=== PATIENT | female | born 1940 | race Caucasian/White ===

== ENCOUNTER → 2017-06-15 | Outpatient (CLI) | payer OTHER ==
--- NOTE | 2017-06-15 15:30 | DIAGNOSTIC IMAGING REPORT ---
CAROTID DOPPLER NECK ART CLINICAL HISTORY: 77 years-old Female presenting with FATIGUE. TECHNIQUE: Real-time grayscale and color and spectral Doppler ultrasound imaging of the bilateral carotid arteries was performed. NASCET criteria was used in evaluating this study. COMPARISON: None. FINDINGS: Right: Common carotid: Patent. Peak systolic velocity 72 cm/s. Internal carotid artery: Atherosclerosis of the proximal ICA. Peak systolic velocity 48 cm/s. Systolic ratio: 0.7. External carotid artery: Patent. Peak systolic velocity 59 cm/s. Left: Common carotid: Patent. Peak systolic velocity 81 cm/s. Internal carotid artery: Atherosclerosis of the proximal ICA. Peak systolic velocity 61 cm/s. Systolic ratio: 0.8. External carotid artery: Patent. Peak systolic velocity 55 cm/s. Bilateral antegrade flow within the vertebral arteries. Reference ranges: Stenosis measurements are compared to reference velocity parameters. ICA peak systolic velocity (PSV) < 125 cm/s normal or indicating < 50% stenosis; ICA PSV 125-230 cm/s equivalent to 50-69% stenosis; ICA PSV > 230 cm/s equivalent to greater than or equal to 70% stenosis. ICA PSV to common carotid artery PSV ratio < 2 normal or < 50% stenosis; 2-4 equates to 50-69% stenosis, > 4 equates to greater than or equal to 70% stenosis. Normal ICA end-diastolic velocity less than 40. Blood pressure Brachial: Right: 181/90 mmHg, Left: 183/93 mmHg. IMPRESSION: 1. Atherosclerosis without hemodynamically significant stenosis seen within the carotid arteries. 2. Systemic hypertension. Electronically signed by: Adelso Guerrier M.D. 06/15/2017 3:29 PM Dictated Date/Time: 06/15/2017 3:28 PM
[2017-06-18 16:28] LABS: ANA SCREEN TC 249X NEGATIVE (NEGATIVE)
== END | disposition home or self-care (01) ==
LOC: C.ULTRBC 14:00
PROVIDERS: ATTEND Internal Medicine
DX: R53.83 Other fatigue (principal)

== ENCOUNTER 2023-06-09 15:56 | Inpatient (IN) ==
--- OUTSIDE RECORDS SUMMARY | 2023-06-09 16:00 | External Medical Summary | Continuity of Care Document ---
Author Name Unknown Organization [address] Address [address] [place], [place] [id number] Care Team Providers Care Administration Vice President Name Role Phone Sarita Francis Primary Care Physician [phone] [facility] [id number] Date(s): 04/03/23 - 04/03/23 [facility] [address], [address] [place] [address] [phone] Encounter Diagnosis Acute COVID-19(Discharge Diagnosis) - 04/03/23 Cough(Discharge Diagnosis) - 04/03/23 Discharge Disposition: Home or Self Care Attending Physician: MD Francis Amy L Allergies, Adverse Reactions, Alerts No Known Allergies Assessment and Plan Extracted from: Title:TeleHealth Visit Note Author:MD Francis Amy L Date:04/03/23 1.Acute COVID-19 Advised that since herCOVID sx have improved & that she has been symptomatic for over 5 days, would not recommend Paxlovid at this time.Daughter wasadvised OK to continuepushing fluids & using OTC cold meds.Reviewed "red flag" sx for which to call us back & or go to ER. 2.Cough Informed daughterof possibleviral etiology. However, since she appears to have had a secondary illness, & is so frail, will tx preemptively withantibiotic. Initially, discussed Levaquin, as daughter was fearful that she could get yeast infection, then progressing into UTI. However, this has a major contra- indication with Sotalol. So, Cefuroxime 500mg BID for 7 days was sent in, instead. Return prn Immunizations Given and Recorded Vaccine Date Status Refusal Reason pneumococcal 23-valent vaccine 09/19/22 Given SARS-CoV-2 (COVID-19) mRNA-1273 vaccine 09/21/21 R ecorded SARS-CoV-2 (COVID-19) mRNA-1273 vaccine 04/20/21 R ecorded SARS-CoV-2 (COVID-19) mRNA-1273 vaccine 06/03/20 R ecorded influenza virus vaccine, inactivated 02/24/21 Give n Medications atorvastatin 40 mg oral tablet Start: 10/16/22 19:36:00 EDT, 1 tab, PO, qhs, Disp# 90 tab, Refills: 3, Pharmacy: [facility] Start Date: 10/16/22 Status: Ordered azelastine 137 mcg/inh (0.1%) nasal spray Start: 09/24/20 13:19:00 EDT, 1 spray, each nostril, bid, Disp# 3 each, Refills: 1, PRN: as needed for allergy symptoms, Pharmacy: [facility] Start Date: 09/24/20 Status: Ordered BD Test Strips 100 ct Start: 08/05/21 19:05:00 EDT, See Instructions, Disp# 100 each, Refills: 6, test daily, Dx E11.9, Pharmacy: [id number] Start Date: 08/05/21 Status: Ordered carbidopa-levodopa 25 mg-100 mg oral tablet Start: 10/08/19 14:45:00 EDT, 1 tab, PO, bid, extended release Start Date: 10/08/19 Status: Ordered cefuroxime 500 mg oral tablet Start: 04/03/23 12:19:00 EST, 1 tab, PO, bid, Disp# 14, Refills: 0, Pharmacy: [id number] Start Date: 04/03/23 Stop Date: 04/10/23 Status: Ordered docusate sodium Start: 05/05/22 13:26:00 EST Start Date: 05/05/22 Status: Ordered Feosol 325 mg (65 mg elemental iron) oral tablet Start: 10/08/19 14:47:00 EDT, Three times a week Start Date: 10/08/19 Status: Ordered glucometer Start: 08/05/21 19:04:00 EDT, See Instructions, Disp# 1 each, Refills: 0, test daily,Dx E11.9, Pharmacy: [id number] Start Date: 08/05/21 Status: Ordered hydrocortisone 2.5% topical cream Start: 05/30/22 17:06:00 EST, See Instructions, Disp# 30 g, Refills: 0, apply rectally twice daily,Pharmacy: [id number] Start Date: 05/30/22 Status: Ordered lancets Start: 08/05/21 19:06:00 EDT, See Instructions, Disp# 100 each, Refills: 6, test daily, E11.9, Pharmacy: [id number] Start Date: 08/05/21 Status: Ordered Lasix 20 mg oral tablet Start: 11/05/20 14:42:00 EDT, See Instructions, Disp# 30 tab, Refills: 3, 1 tab PO as needed for swelling, Pharmacy: [id number] Start Date: 11/05/20 Status: Ordered Melatonin 10 mg oral capsule Start: 10/08/19 14:46:00 EDT Start Date: 10/08/19 Status: Ordered metFORMIN 500 mg oral tablet Start: 07/11/22 14:22:00 EDT, 1 tab, PO, Daily, Disp# 90 tab, Refills: 3, Pharmacy: [facility] Start Date: 07/11/22 Status: Ordered nystatin 100,000 units/g topical ointment Start: 06/04/20 13:23:00 EST, 1 appl, topical, tid, Disp# 30 g, Refills: 3, Pharmacy: [facility] Start Date: 06/04/20 Status: Ordered One Touch Delica Plus (33G) Lancets Start: 08/16/21 9:09:00 EDT, See Instructions, Disp# 100 each, Refills: 6, test daily, Dx : E11.9, Pharmacy: [id number] Start Date: 08/16/21 Status: Ordered One Touch Ultra 2 Glucose Monitor Start: 08/16/21 9:09:00 EDT, See Instructions, Disp# 1 each, Refills: 0, Test daily, dx : E11.9, Pharmacy: [id number] Start Date: 08/16/21 Status: Ordered One Touch Ultra Test Strips 100 ct Start: 08/16/21 9:09:00 EDT, See Instructions, Disp# 100 each, Refills: 6, test daily, Dx : E11.9, Pharmacy: [id number] Start Date: 08/16/21 Status: Ordered Probiotic Formula (Bacillus Coagulans) Start: 11/18/21 13:20:00 EDT, w. cranberry Start Date: 11/18/21 Status: Ordered sertraline 50 mg oral tablet Start: 08/24/22 20:05:00 EDT, 1 tab, PO, Daily, Disp# 90 tab, Refills: 1, Pharmacy: [facility] Start Date: 08/24/22 Status: Ordered SITagliptin 25 mg oral tablet Start: 12/13/22 16:49:00 EDT, 1 tab, PO, Daily, Disp# 30 tab, Refills: 6, Pharmacy: [id number] Start Date: 12/13/22 Status: Ordered sotalol 80 mg oral tablet Start: 07/10/22 10:06:00 EDT, See Instructions, Disp# 90 tab, Refills: 3, TAKE 1/2 TABLET TWICE A DAY, Pharmacy: [facility] Start Date: 07/10/22 Status: Ordered Synthroid 50 mcg (0.05 mg) oral tablet Start: 10/16/22 19:36:00 EDT, See Instructions, Disp# 90 tab, Refills: 1, TAKE 1 TABLET DAILY, Pharmacy: [facility] Start Date: 10/16/22 Status: Ordered Vitamin D2 2000 intl units oral capsule Start: 10/08/19 14:47:00 EDT Start Date: 10/08/19 Status: Ordered Zinc Start: 04/03/23 11:24:00 EST Start Date: 04/03/23 Status: Ordered Mental Status 04/03/23 Barriers to Learning one year None evide nt Mandatory Health Literacy Documentation Yes Health Literacy Communication Barriers N ever Primary Language Chilean Problem List Condition Confirmation Course Effective Dates Status H ealth Status Informant Acute COVID-19 Confirmed Active Alopecia Confirmed Active Candidal dermatitis Confirmed Active Chronic constipation Confirmed Active CAD (coronary artery disease) Confirmed Active Corticobasal degeneration Confirmed Active Cough Confirmed Active Cyanosis Confirmed Active History of heart artery stent Confirmed Active History of recurrent UTIs Confirmed Active Adult hypothyroidism Confirmed Active Hypoxia Confirmed Active Inflamed seborrheic keratosis Confirmed Active Kidney stone Confirmed Active Parkinson's disease Confirmed Active PAF (paroxysmal atrial fibrillation) Confirmed Active Decubitus ulcer of sacral region, stage 2 Confirmed Active Sacral decubitus ulcer Confirmed Active Type 2 diabetes, HbA1C goal < 8% Confirmed Active Ambulatory dysfunction Confirmed Active Loss of weight Confirmed Active Diagnosis Diagnosis Type Effective Dates Health Status Cl inical Service Informant Acute COVID-19 Discharge Diagnosis 04/03/23 Non-Specified Cough Discharge Diagnosis 04/03/23 Non-Specified Procedures Procedure Date Related Diagnosis Body Site Status CT of abdomen and pelvis 1 12/28/21 Completed X-ray 2 11/19/20 Completed MRA head 3 11/29/18 Completed MRI of brain 4 11/29/18 Completed Abdominal hysterectomy Co mpleted [facility] Impression: 1. There is a small left pleural effusion 2. There is a large hiatal hernia 3. 1.2 cm cystic lesion in the pancreatic tail on series 4, image 60. Reimaging every 2 years for 4years is recommended 4. No evidence of hydronephrosis or hydroureter. No evidence of radiopaque obstructing ureteral calculus 5. Regions of small and large bowel wall thickening may be due to incomplete distention or enterocolitis 6. There is a small, approximately 1 x 1.4 x 1.8 cm subcutaneous fluid collection at the umbilicus.Correlate with physical examination 7. Posterior pelvic wall skiin thickening and subcutaenous stranding at the level of the sacrum maybe due to cellulitis with a possible developing sacral decubitus ulcer. Correlate with physical examination 2CHEST X-RAY-2 VIEWS IMPRESSION: 1. Cardiomeagaly with no acute cardiopulmonary abnormality. 2. Chronic pleural effusion is noted at the left lung base. 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, o/w normal 4chronic ischemic white matter ds, empty sella, Social History Social History Type Response Smoking Status Never smoked cigaret [place] Sex Female Implantable Device List Procedure Provider Procedure Date Device Type Site cath Unknown 12/13/17 Unknown Unknown Device Identifier Serial Number Lot or Batch Number Manufacturing Date Expiration Date Distinct Identification Code MRI Safety Implantable Status Assigning Authority Unknown 1 Unknown Unknown Unknown Unknown Unknown Unknown Active U nknown 1xience 3.5mm X 33 mm everolimus eluting stent into LAD FCM Outpt Note * MD Penny, Sarita Hernandez: PERFORM Event Display: FCM Outpt Note Authored Date: [id number] TeleHealth Visit Note I have confirmed the patients name and date of . The patient has consented to this service,and I have advised the patient that this is a billable visit for which they may be subject to a copay. [ X_ ] The patient has initiated this visit after he/she was informed of the availability of telehealth for this medically necessary visit. [ X_ ] The provider initiated this visit after explaining the need for this visit to the patient, who has consented to this virtual visit. I am located at my: [ X_ ] Office [ _ ] Home [ _ ] Other: _ The patient is located at: [ X_ ] Home [ _ ] Other: _ This visit was conducted via live audio/video technology: [ X_ ] [facility] [ _ ] Zoom This visit was conducted via [ _ ] Telephone, and was not related to a visit or procedure that occurred within the past 7 days. Telephone Only Visit: Reason for audio only visit was [ _ ] no internet connection available [ _ ] Other: _. Total time spent communicating with the patient: 18_ minutes Chief Complaint pt is improving but congestion concerning History of Present Illness Telehealth visit for : 1) COVID she lost her a few weeks ago from complications after TAVR. Her daughter thinks that their whole household got infected with COVID at the . Babar started with fever to 101.6 on 03/29. She had fever for 2 days, then this resolved. She tested + for COVID on 03/30 (as didevery member of household). She did have nasal congestion & cough that was initially dry-sounding. Had some slight diarrhea. Has been eating well, but daughter has been having to coax her to drink fluids. 2) Worsening cough - her daughter thought that her cough was getting better, but then got worse 2 days ago. Now, sounds "moist & congested." Her pulse ox has been from 92-94%. No SOB, but hassome occasional wheezing. Her daughter (who is a nurse) listened to her lungs & said she heard a few fine rhonchi in right lung. She is at her usual state of alertness in last 3 days. Physical Exam General : Alert, in NAD. Respiratory : nonverbal, with no respiratory distress. Psych : mood seems normal. Assessment/Plan 1.Acute COVID-19 Advised that since herCOVID sx have improved & that she has been symptomatic for over 5 days,would not recommend Paxlovid at this time.Daughter wasadvised OK to continuepushing fluids & using OTC cold meds.Reviewed "red flag" sx for which to call us back & or go to ER. 2.Cough Informed daughterof possibleviral etiology. However, since she appears to have had a secondary illness, & is so frail, will tx preemptively withantibiotic. Initially, discussed Levaquin, as daughter was fearful that she could get yeast infection, then progressing into UTI. However, this has a major contra-indication with Sotalol. So, Cefuroxime 500mg BID for 7 days was sent in, instead. Return prn Problem List/Past Medical History Ongoing Acute COVID-19 Adult hypothyroidism Alopecia Ambulatory dysfunction CAD (coronary artery disease) Candidal dermatitis Chronic constipation Corticobasal degeneration Cough Cyanosis Decubitus ulcer of sacral region, stage 2 History of heart artery stent History of recurrent UTIs Hypoxia Inflamed seborrheic keratosis Kidney stone Loss of weight PAF (paroxysmal atrial fibrillation) Parkinson's disease Sacral decubitus ulcer Type 2 diabetes, HbA1C goal < 8% Historical Acute allergic rhinitis Anticoagulated Diabetes Epistaxis Procedure/Surgical History CT of abdomen and pelvis (12/28/2021)X-ray (11/19/2020)MRA head (11/29/2018)MRI of brain (11/29/2018)Abdominal hysterectomy Medications atorvastatin(atorvastatin 40 mg oral tablet), 40 mg= 1 tab, PO, qhs, 3 refills azelastine nasal(azelastine 137 mcg/inh (0.1%) nasal spray), 1 spray, each nostril, bid, PRN, 1 refills bacillus coagulans-inulin(Probiotic Formula (Bacillus Coagulans)) carbidopa-levodopa(carbidopa-levodopa 25 mg-100 mg oral tablet), 1 tab, PO, bid cefuroxime(cefuroxime 500 mg oral tablet), 500 mg= 1 tab, PO, bid diabetes supplies(One Touch Delica Plus (33G) Lancets), See Instructions, 6 refills diabetes supplies(One Touch Ultra Test Strips 100 ct), See Instructions, 6 refills diabetes supplies(One Touch Ultra 2 Glucose Monitor), See Instructions diabetes supplies(lancets), See Instructions, 6 refills diabetes supplies(glucometer), See Instructions diabetes supplies(BD Test Strips 100 ct), See Instructions, 6 refills docusate(docusate sodium) ergocalciferol(Vitamin D2 2000 intl units oral capsule) ferrous sulfate(Feosol 325 mg (65 mg elemental iron) oral tablet) furosemide(Lasix 20 mg oral tablet), See Instructions, 3 refills hydrocortisone topical(hydrocortisone 2.5% topical cream), See Instructions levothyroxine(Synthroid 50 mcg (0.05 mg) oral tablet), See Instructions, 1 refills melatonin(Melatonin 10 mg oral capsule) metFORMIN(metFORMIN 500 mg oral tablet), 500 mg= 1 tab, PO, Daily, 3 refills nystatin topical(nystatin 100,000 units/g topical ointment), 1 appl, topical, tid, 3 refills sertraline(sertraline 50 mg oral tablet), 50 mg= 1 tab, PO, Daily, 1 refills SITagliptin(SITagliptin 25 mg oral tablet), 25 mg= 1 tab, PO, Daily, 6 refills sotalol(sotalol 80 mg oral tablet), See Instructions zinc sulfate(Zinc) Allergies NKA Social History Smoking Status Never smoked cigarettes Alcohol - Denies Alcohol Use Exercise Exercise type:stationary bike w/arms Tobacco - Denies Tobacco Use Family History Breast cancer: Mother. Heart failure: Negative: Brother. Malignant tumor of lung: Father. Stroke: Mother. Health Status Family Member(s) Family Member(s) Relationship: Mother, Age: Unknown Immunizations Vaccine Date Status pneumococcal 23-valent vaccine 09/19/2022 Given SARS-CoV-2 (COVID-19) mRNA-1273 vaccine 09/21/2021 Recorded SARS-CoV-2 (COVID-19) mRNA-1273 vaccine 04/20/2021 Recorded influenza virus vaccine, inactivated 02/24/2021 Given SARS-CoV-2 (COVID-19) mRNA-1273 vaccine 06/03/2020 Recorded Recommendations Health Maintenance Pending(in the next year) OverDue Adult Influenza Vaccine due10/28/22and every 1year Due Adult COVID-19 Vaccination due04/03/23Unknown Frequency Adult Tdap/Td Vaccine due04/03/23Unknown Frequency Body Mass Index due04/03/23Unknown Frequency Diabetes Nephropathy Management due04/03/23Unknown Frequency Medicare Annual Wellness Visit due04/03/23and every 1year Osteoporosis Screening due04/03/23One-time only Shingles Vaccine due04/03/23One-time only Due In Future Diabetic Eye Exam not due until06/17/23and every 366day Diabetes Management A1c not due until09/20/23and every 366day Satisfied(in the past 1 year) Satisfied Diabetes Management A1c on09/19/22.Satisfied by Contributor_system, [id number] Pneumococcal Vaccine Older Adults on09/19/22.Satisfied by GEETA Myers Karli R Electronic Signature on File Electronically Reviewed/Signed by: Sarita Francis MD Author Signature Dt/Tm:04/03/2023 12:35 PM Merchandise Presentation Manager [facility] [address] [place] [address] [facility] Patient Care team information Care Team Personnel Name: MD Penny, Sarita Hernandez Position: Physician - Family Med Member Role: Primary Care Provider Address: Address: [address] [place] [address], [place] [address] [place] Care Team Related Persons Name: YASMIN SHEARER
--- OUTSIDE RECORDS SUMMARY | 2023-06-09 16:00 | External Medical Summary | Continuity of Care Document ---
Author Name Unknown Organization [facility] [address] [facility] Address [address] [place], [place] [id number] Care Team Providers Care Irrigation Tax Assessor Collector Name Role Phone Sarita Francis Primary Care Physician [phone] [id number] Date(s): 12/13/22 - 12/13/22 [facility] 303 [facility] [address] [facility], [address] [place] [address] [phone] Encounter Diagnosis Loss of weight(Discharge Diagnosis) - 12/13/22 Corticobasal degeneration(Discharge Diagnosis) - 12/12/22 Type 2 diabetes, HbA1C goal < 8%(Discharge Diagnosis) - 12/12/22 Discharge Disposition: Home or Self Care Attending Physician: MD Francis Amy L Allergies, Adverse Reactions, Alerts No Known Allergies Assessment and Plan Extracted from: Title:TeleHealth Visit Note Author:MD Francis Amy L Date:12/13/22 1.Loss of weight STATUS: Chronic, slowing slightly. DATA: weights & labs reviewed. GOAL: regain weight, prevent further weight loss. PLAN: discussed with daughter that Januvia could be contributing to weight loss. Will decrease dose to 25mg daily. Daughter is already giving her protein supplements & nutritional drinks. Recheck weight in 2-3 months. 2.Type 2 diabetes, HbA1C goal < 8% Status : chronic, under fair control. Data : diet & glucometers reviewed. Goal : maintain normal blood sugars. Plan : discussed with daughter that we are not aiming for tight control. Her mkrmO3A was 8%. Decrease Januvia, as above. 3.Corticobasal degeneration STATUS: Chronic, progressive. DATA: hx reviewed. GOAL: Maintain neurological stability. PLAN: she has upcoming appt with neuro. I did discuss frankly with daughter that her swallowing problems might be from her progressing dementia. Next visit in 2-3 months. Immunizations Given and Recorded Vaccine Date Status Refusal Reason pneumococcal 23-valent vaccine 09/19/22 Given SARS-CoV-2 (COVID-19) mRNA-1273 vaccine 09/21/21 R ecorded SARS-CoV-2 (COVID-19) mRNA-1273 vaccine 04/20/21 R ecorded SARS-CoV-2 (COVID-19) mRNA-1273 vaccine 06/03/20 R ecorded influenza virus vaccine, inactivated 02/24/21 Give n Medications atorvastatin 40 mg oral tablet Start: 10/16/22 19:36:00 EDT, 1 tab, PO, qhs, Disp# 90 tab, Refills: 3, Pharmacy: [facility] Start Date: 10/16/22 Status: Ordered azelastine 137 mcg/inh (0.1%) nasal spray Start: 09/24/20 13:19:00 EDT, 1 spray, each nostril, bid, Disp# 3 each, Refills: 1, PRN: as needed for allergy symptoms, Pharmacy: [facility] Start Date: 09/24/20 Status: Ordered BD Test Strips 100 ct Start: 08/05/21 19:05:00 EDT, See Instructions, Disp# 100 each, Refills: 6, test daily, Dx E11.9, Pharmacy: [id number] Start Date: 08/05/21 Status: Ordered carbidopa-levodopa 25 mg-100 mg oral tablet Start: 10/08/19 14:45:00 EDT, 1 tab, PO, bid, extended release Start Date: 10/08/19 Status: Ordered docusate sodium Start: 05/05/22 13:26:00 EST Start Date: 05/05/22 Status: Ordered Feosol 325 mg (65 mg elemental iron) oral tablet Start: 10/08/19 14:47:00 EDT, Three times a week Start Date: 10/08/19 Status: Ordered glucometer Start: 08/05/21 19:04:00 EDT, See Instructions, Disp# 1 each, Refills: 0, test daily,Dx E11.9, Pharmacy: [id number] Start Date: 08/05/21 Status: Ordered hydrocortisone 2.5% topical cream Start: 05/30/22 17:06:00 EST, See Instructions, Disp# 30 g, Refills: 0, apply rectally twice daily,Pharmacy: [id number] Start Date: 05/30/22 Status: Ordered lancets Start: 08/05/21 19:06:00 EDT, See Instructions, Disp# 100 each, Refills: 6, test daily, E11.9, Pharmacy: [id number] Start Date: 08/05/21 Status: Ordered Lasix 20 mg oral tablet Start: 11/05/20 14:42:00 EDT, See Instructions, Disp# 30 tab, Refills: 3, 1 tab PO as needed for swelling, Pharmacy: [id number] Start Date: 11/05/20 Status: Ordered Melatonin 10 mg oral capsule Start: 10/08/19 14:46:00 EDT Start Date: 10/08/19 Status: Ordered metFORMIN 500 mg oral tablet Start: 07/11/22 14:22:00 EDT, 1 tab, PO, Daily, Disp# 90 tab, Refills: 3, Pharmacy: [facility] Start Date: 07/11/22 Status: Ordered nystatin 100,000 units/g topical ointment Start: 06/04/20 13:23:00 EST, 1 appl, topical, tid, Disp# 30 g, Refills: 3, Pharmacy: [facility] Start Date: 06/04/20 Status: Ordered omeprazole 20 mg oral delayed release capsule Start: 12/13/22 16:20:00 EDT, 1 cap, PO, Daily Start Date: 12/13/22 Status: Ordered One Touch Delica Plus (33G) Lancets Start: 08/16/21 9:09:00 EDT, See Instructions, Disp# 100 each, Refills: 6, test daily, Dx : E11.9, Pharmacy: [id number] Start Date: 08/16/21 Status: Ordered One Touch Ultra 2 Glucose Monitor Start: 08/16/21 9:09:00 EDT, See Instructions, Disp# 1 each, Refills: 0, Test daily, dx : E11.9, Pharmacy: [id number] Start Date: 08/16/21 Status: Ordered One Touch Ultra Test Strips 100 ct Start: 08/16/21 9:09:00 EDT, See Instructions, Disp# 100 each, Refills: 6, test daily, Dx : E11.9, Pharmacy: [id number] Start Date: 08/16/21 Status: Ordered Probiotic Formula (Bacillus Coagulans) Start: 11/18/21 13:20:00 EDT, w. cranberry Start Date: 11/18/21 Status: Ordered sertraline 50 mg oral tablet Start: 08/24/22 20:05:00 EDT, 1 tab, PO, Daily, Disp# 90 tab, Refills: 1, Pharmacy: [facility] Start Date: 08/24/22 Status: Ordered SITagliptin 25 mg oral tablet Start: 12/13/22 16:49:00 EDT, 1 tab, PO, Daily, Disp# 30 tab, Refills: 6, Pharmacy: [id number] Start Date: 12/13/22 Status: Ordered sotalol 80 mg oral tablet Start: 07/10/22 10:06:00 EDT, See Instructions, Disp# 90 tab, Refills: 3, TAKE 1/2 TABLET TWICE A DAY, Pharmacy: [facility] Start Date: 07/10/22 Status: Ordered Synthroid 50 mcg (0.05 mg) oral tablet Start: 10/16/22 19:36:00 EDT, See Instructions, Disp# 90 tab, Refills: 1, TAKE 1 TABLET DAILY, Pharmacy: [facility] Start Date: 10/16/22 Status: Ordered Vitamin D2 2000 intl units oral capsule Start: 10/08/19 14:47:00 EDT Start Date: 10/08/19 Status: Ordered Mental Status 12/13/22 Barriers to Learning one year None evide nt Mandatory Health Literacy Documentation Yes Health Literacy Communication Barriers N ever Primary Language Telugu Problem List Condition Confirmation Course Effective Dates Status H ealth Status Informant Alopecia Confirmed Active Candidal dermatitis Confirmed Active Chronic constipation Confirmed Active CAD (coronary artery disease) Confirmed Active Corticobasal degeneration Confirmed Active Cyanosis Confirmed Active History of [...] Diagnosis Diagnosis Type Effective Dates Health Status Clinical Service Informant Corticobasal degeneration Discharge Diagnosis 12/12/22 Type 2 diabetes, HbA1C goal < 8% Discharge Diagnosis 12/12/22 Loss of weight Discharge Diagnosis 12/13/22 Non-Specified Procedures Procedure Date Related Diagnosis Body [...] Event Display: FCM Outpt Note Authored Date: [id number] TeleHealth Visit Note I have confirmed the [...] visit. I am located at my: [ X] Office [ _ ] Home [ _ ] Other: _ The patient is located at: [ X_ ] Home [ _ ] Other: _ This visit was conducted via live audio/video technology: [ _X ] [facility] [ _ ] Zoom Started on demand, until my computer lost charge, visit completed on telephone. This visit was conducted via [ X_ ] Telephone, and was not related to a visit or procedure that occurred within the past 7 days. Telephone Only Visit: Reason for audio only visit was [ _ ] no internet connection available [ _ ] Other: _. Total time spent communicating with the patient: 16_ minutes Chief Complaint follow up, discuss weightloss History of Present Illness Telehealth visitforfollowing concerns : 1)Weight loss - pt's dtr notes that she has lost over 20 pounds in recent years. She thinks that Babar may have lost a few more pounds, since her last weight in the office. She is eating very well, but Yasmin is concerned that her Januvia may be contributing to her weight loss. 2)Type 2 DM - her glucometers have been from 97-219, most in 150-160 range. No low BS. Her daughter wanted to know if Januvia could be decreased. Physical Exam General : Alert, in NAD (non-verbal). Respiratory : Speaks easily in full sentences, with no respiratory distress. Psych : answers all questions appropriately, mood seems normal. Assessment/Plan 1.Loss of weight STATUS: Chronic, slowing slightly. DATA: weights & labs reviewed. GOAL: regain weight, prevent further weight loss. PLAN: discussed with daughter that Januvia could be contributing to weight loss. Will decrease dose to 25mg daily. Daughter is already giving her protein supplements & nutritional drinks. Recheck weight in 2-3 months. 2.Type 2 diabetes, HbA1C goal < 8% Status : chronic, under fair control. Data : diet & glucometers reviewed. Goal : maintain normal blood sugars. Plan : discussed with daughter that we are not aiming for tight control. Her ccnaV5S was 8%. Decrease Januvia, as above. 3.Corticobasal degeneration STATUS: Chronic, progressive. DATA: hx reviewed. GOAL: Maintain neurological stability. PLAN: she has upcoming appt with neuro. I did discuss frankly with daughter that her swallowing problems might be from her progressing dementia. Next visit in 2-3 months. Problem List/Past Medical History Ongoing Adult hypothyroidism Alopecia Ambulatory dysfunction CAD (coronary artery disease) Candidal dermatitis Chronic constipation Corticobasal degeneration Cyanosis Decubitus ulcer of sacral region, stage [...] mg oral tablet), 1 tab, PO, bid diabetes supplies(One Touch [...] ointment), 1 appl, topical, tid, 3 refills omeprazole(omeprazole 20 mg oral delayed release capsule), 20 mg= 1 cap, PO, Daily sertraline(sertraline 50 mg oral tablet), 50 mg= 1 tab, PO, Daily, 1 refills SITagliptin(SITagliptin 25 mg oral tablet), 25 mg= 1 tab, PO, Daily, 6 refills sotalol(sotalol 80 mg oral tablet), See Instructions Allergies NKA Social History Smoking Status Never [...] due10/28/22and every 1year Due Adult COVID-19 Vaccination due12/13/22Unknown Frequency Adult Tdap/Td Vaccine due12/13/22Unknown Frequency Body Mass Index due12/13/22Unknown Frequency Diabetes Nephropathy Management due12/13/22Unknown Frequency Falls Plan of Care due12/13/22Unknown Frequency Lipid Screening due12/13/22Unknown Frequency Medicare Annual Wellness Visit due12/13/22and every 1year Osteoporosis Screening due08/16/23One-time only Shingles Vaccine due12/13/22One-time only Due In Future Diabetic Eye Exam not due until06/16/23and every 1year Diabetes Management A1c not due until09/19/23and every 1year Satisfied(in the past 1 year) Satisfied Diabetes Management A1c on09/19/22.Satisfied by Contributor_system, [id number] Pneumococcal Vaccine Older Adults on09/19/22.Satisfied by GEETA Myers, Demetra Gonzalez Electronic Signature on File Electronically Reviewed/Signed by: Sarita Francis MD Author Signature Dt/Tm:12/13/2022 08:28 PM Occupational Health Physiotherapist [facility] [address], [address] [place] [address] [facility] Patient Care team information Care Team Personnel Name: MD Penny, Sarita Hernandez Position: Physician - Family Med Member Role: Primary Care Provider Address: Address: [address] [place] [address], [place] [address] [place] Care Team Related Persons Name: YASMIN SHEARER
--- OUTSIDE RECORDS SUMMARY | 2023-06-09 16:00 | External Medical Summary | Summary of Care ---
Author Name Unknown Organization [facility] Address [address] [facility] [place] [address] Phone [phone] Care Team Providers Care Meter Shop Supervisor Name Role Phone Sarita Francis MD Primary Care Provider [phone] Reason for Visit * Reason Onset Date Comments Precert Approved 10/26/2022 Nitrofurantoin 25MG/5ML suspension Encounter Details Date Type Department Care Team Description 10/26/2022 Telephone Urology Nick Aiken [address] [facility] [address] [place] [address] Arie Gordon Jr., MD 27 [facility] [address] [place] [address] Precert Approved (Nitrofurantoin 25MG/5ML ... Allergies No known active allergiesdocumented as of this encounter (statuses as of 01/12/2023) Medications Medication Sig Dispensed Refills Start Date End Date Status levothyroxine (SYNTHROID) 75 MCG Tablet Take 75 mcg by mouth daily first thing in the morning. (at least 30 min prior to breakfast or other meds) 0 Active Acetaminophen ER (ARTHRITIS PAIN RELIEF) 650 MG TBCR Take 650 mg by mouth every 8 hours as needed for Fever. 0 Active Cholecalciferol (VITAMIN D3) 1000 units CAPS Take 2 Caps by mouth daily. 0 8 Active Apixaban 5 MG Oral Tablet Take 0.5 Tablets by mouth in the morning and 0.5 Tablets before bedtime. 0 Active sotalol (BETAPACE) 80 MG Tablet Take 40 mg by mouth 2 times a day. 0 Active ferrous sulfate (FEOSOL) 325 (65 FE) MG Tablet Take 325 mg by mouth daily. Three times a week 0 Active atorvaSTATin (LIPITOR) 40 MG Tablet Take 40 mg by mouth daily. 0 Active Cranberry 1000 MG Capsule Take 1,000 mg by mouth daily. 0 Active polyethylene glycol 3350 (MIRALAX) 255 gram powder Take 17 g by mouth daily. 0 Active Docusate Sodium 100 MG Oral Tablet Take by mouth 100 mg 2 times a day as needed for Constipation. 0 Active metFORMIN HCl ER (MOD) 500 MG Oral Tablet Extended Release 24 Hour Take 500 mg by mouth daily with dinner. Four times a week 0 Active Vitamin C 100 MG Oral Tablet Take by mouth 100 mg in the morning. 0 Active Estrogens, Conjugated 0.625 MG/GM Vaginal Cream (Premarin) apply intravaginally 0.5g twice weekly 42.5 g 12 2 Active Terconazole 0.8 % Vaginal Cream Administer into the vagina 1 Applicator before bedtime. For 3 days.. 20 g 1 2 Active Fluconazole 10 MG/ML Oral Suspension Reconstituted (Diflucan) Take by mouth daily . Vaginal yeast infection 0 Active Probiotic Daily Oral Capsule Take by mouth 1 Capsule in the morning. 0 Active Famotidine 40 MG Oral Tablet (Pepcid) Take by mouth 40 mg in the morning. 0 Active Amoxicillin-Pot Clavulanate 250-62.5 MG/5ML Oral Suspension Reconstituted Take by mouth 5 mL in the morning AND 5 mL at noon AND 5 mL before bedtime. 150 mL 0 2 Active Sertraline HCl 100 MG Oral Tablet (Zoloft) TAKE 1/2 TABLET EVERY MORNING 45 Tablet 2 3 Active Melatonin 10 MG/ML Oral Liquid Take 10 mg by mouth at bedtime. 90 mL 3 3 Active Nitrofurantoin 25 MG/5ML Oral Suspension (Furadantin) Take 10 mL by mouth in the morning and 10 mL at noon and 10 mL in the evening and 10 mL before bedtime. 200 mL 0 3 Active Carbidopa-Levodop a ER 23.75-95 MG Oral Capsule Extended Release (Rytary) 1 capsule in the morning and 1 capsule in the evening. Can open capsules and sprinkle onto applesauce; eat immediately. 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 Mixed dyslipidemia documented as of this encounter (statuses as of 01/12/2023) Immunizations Name Administration Dates Next Due Seasonal Influenza, PF, 6 mons & Above, IM , (Fl ulaval) 01/22/2018 documented as of this encounter Social History Tobacco Use Types Packs/Day Years Used Date Smoking Tobacco: Never Smokeless Tobacco: Never Alcohol Use Standard Drinks/Week Comments Not Currently 0 (1 standard drink = 0.6 oz pur e alcohol) social; holiday Sex Assigned at Date Recorded Not on file Job Start Date Occupation Industry Not on file Not on file Not on file documented as of this encounter Miscellaneous Notes * Telephone Encounter - Coral Valdez LPN - 10/26/2022 2:58 PM EDT Urology Pre-Cert Request Medication/Disease State Information: Medication: Nitrofurantoin 25 MG/5ML Oral/Inhaler/Self-administered injection [place] [phone] Diagnosis (including ICD-10): recurrent UTI Medication(s) Tried/Failed/Contraindicated: NA- pt has difficulty swallowing pills See corresponding visit note(s) for additional supporting clinical information. Office Information: Prescriber: Dr. Gordon documented in this encounter Plan of Treatment Upcoming Encounters Date Type Specialty Care Team Description 04/17/2023 Telemedicine Neurology Ashley Rodriguez MD [address] [place] [address] [place] [address] 10/31/2023 Office Visit Urology Evan Parisi, Arie Bonner MD 27 [facility] [place] [address] [place] [address] Health Maintenance Due Date Last Done Comments DXA Scan 1940 Depression Screening 1952 DTaP,Tdap,and Td Vaccines (1 - Tdap) 1959 Zoster Vaccines (1 of 2) 1990 Pneumococcal Vaccine: 65+ Years (1 - PCV) 2005 TSH 11/30/2019 11/29/2018, 08/28, 03/13/2018, Additional history exists COVID-19 Vaccine (2 - Moderna series) 07/29/2020 06/03/2020 Influenza Vaccine (FLU shot) (#1) 2022 01/22/2018, 02/26/1999 GARDASIL-HPV IMMUNIZATION SERIES Aged Out No longer eligible based on patient's age to complete this topic Hepatitis B Aged Out No longer eligi ble based on patient's age to complete this topic MENINGOCOCCAL (MENACTRA/MENVEO) Aged Out No longer eligible based on patient's age to complete this topic documented as of this encounter Medical Devices Not on filedocumented as of this encounter Care Teams Meter Shop Supervisor Relationship Specialty Start Date End Date Sarita Francis MD [address] [place] [address] [place] [address] PCP - General Family Medicine 03/23/21 documented as of this encounter
--- OUTSIDE RECORDS SUMMARY | 2023-06-09 16:00 | External Medical Summary | Summary of Care ---
Author Name Unknown Organization [facility] Address [address] [facility] [place] [address] Phone [phone] Care Team Providers Care Relay Checker Name Role Phone Sarita Francis MD Primary Care Provider [phone] Reason for Visit * Reason Onset Date Comments Other 04/17/2023 Info on hospice Encounter Details Date Type Department Care Team (Late st Contact Info) Description 04/17/2023 Telephone Neurology, [facility] [address] [place] [id number] Ashley Rodriguez MD [address] [place] [address] Other (Info on hospice) Allergies No known active allergiesdocumented as of this encounter (statuses as of 04/17/2023) Medications Medication Sig Dispensed Refills Start Date End Date Status levothyroxine (SYNTHROID) 75 MCG Tablet Take 1 Tablet by mouth daily first thing in the morning. (at least 30 min prior to breakfast or other meds) 0 Active Acetaminophen ER (ARTHRITIS PAIN RELIEF) 650 MG TBCR Take 650 mg by mouth every 8 hours as needed for Fever. 0 Active Cholecalciferol (VITAMIN D3) 1000 units CAPS Take 2 Caps by mouth daily. 0 06/08/2017 Active Additional Information Patient taking differently:2,000 Units Oral Daily(AM),3 times a week, Reported on 04/17/2023 sotalol (BETAPACE) 80 MG Tablet Take 0.5 Tablets by mouth in the morning and 0.5 Tablets before bedtime. 0 Active ferrous sulfate (FEOSOL) 325 (65 FE) MG Tablet Take 1 Tablet by mouth in the morning. Three times a week. 0 Active atorvaSTATin (LIPITOR) 40 MG Tablet Take 1 Tablet by mouth in the morning. 0 Active Cranberry 1000 MG Capsule Take 1,000 mg by mouth daily. 0 Active Docusate Sodium 100 MG Oral Tablet Take 1 Tablet by mouth 2 times a day as needed for Constipation. 0 Active metFORMIN HCl ER (MOD) 500 MG Oral Tablet Extended Release 24 Hour Take 1 Tablet by mouth daily with dinner. Four times a week 0 Active Estrogens, Conjugated 0.625 MG/GM Vaginal Cream (Premarin) apply intravaginally 0.5g twice weekly 42.5 g 12 07/13/2021 Active Terconazole 0.8 % Vaginal Cream Administer into the vagina 1 Applicator before bedtime. For 3 days.. 20 g 1 07/14/2021 Active Probiotic Daily Oral Capsule Take by mouth 1 Capsule in the morning. 0 Active Famotidine 40 MG Oral Tablet (Pepcid) Take 1 Tablet by mouth in the morning. 0 Active Sertraline HCl 100 MG Oral Tablet (Zoloft) TAKE 1/2 TABLET EVERY MORNING 45 Tablet 2 08/21/2022 Active Melatonin 10 MG/ML Oral Liquid Take 10 mg by mouth at bedtime. 90 mL 3 10/24/2022 Active Carbidopa-Levodop a 25-100 MG Oral Tablet (Sinemet) Take one tablet three times a day, about 5 hours apart. 270 Tablet 3 02/07/2023 Active SITagliptin Phosphate 25 MG Oral Tablet (Januvia) Take 1 Tablet by mouth in the morning. 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 Mixed dyslipidemia documented as of this encounter (statuses as of 04/17/2023) Immunizations Name Administration Dates Next Due Seasonal Influenza, PF, 6 M & above, IM , (FluLaval or Fluzone) 01/22/2018 documented as of this encounter Social History Tobacco Use Types Packs/Day Years Used Date Smoking Tobacco: Never Smokeless Tobacco: Never Alcohol Use Standard Drinks/Week Comments Not Currently 0 (1 standard drink = 0.6 oz pur e alcohol) social; holiday Sex and Gender Information Value Date Recorded Sex Assigned at Not on file Gender Identity Not on file Sexual Orientation Not on file Job Start Date Occupation Industry Not on file Not on file Not on file documented as of this encounter Plan of Treatment Upcoming Encounters Date Type Department Care Team (Late st Contact Info) Description 10/31/2023 3:30 PM EDT Office Visit Urology Nick Aiken [address] [place] [address] [place] [address] Arie Gordon Jr., MD [address] [place] [address] [place] [address] Health Maintenance Due Date Last Done Comments DXA Scan 1940 Depression Screening 1952 DTaP,Tdap,and Td Vaccines (1 - Tdap) 1959 Zoster Vaccines (1 of 2) 1990 TSH 11/30/2019 11/29/2018, 08/28, 03/13/2018, Additional history exists COVID-19 Vaccine (2 - 2022- season) 2022 06/03/2020 Influenza Vaccine (FLU shot) (#1) 2022 01/22/2018, 02/26/1999 Pneumococcal Vaccine: 65+ Years (2 - PCV) 09/20/2023 09/19/2022 GARDASIL-HPV IMMUNIZATION SERIES Aged Out No longer eligible based on patient's age to complete this topic Hepatitis B Aged Out No longer eligi ble based on patient's age to complete this topic MENINGOCOCCAL (MENACTRA/MENVEO) Aged Out No longer eligible based on patient's age to complete this topic documented as of this encounter Medical Devices Not on filedocumented as of this encounter Care Teams Relay Checker Relationship Specialty Start Date End Date Sarita Francis MD [address] [place] [address] PCP - General Family Medicine 03/23/21 documented as of this encounter
--- OUTSIDE RECORDS SUMMARY | 2023-06-09 16:00 | External Medical Summary | Summary of Care ---
Author Name Unknown Organization [facility] Address [address] [facility] [place] [address] Phone [phone] Care Team Providers Care Geodetic Surveyor Technologist Name Role Phone Sarita Francis MD Primary Care Provider Reason for Visit * Reason Comments Follow Up Encounter Details Date Type Department Care Team (Late st Contact Info) Description 04/17/2023 8:00 AM EST Telemedicine Neurology, [place] [facility] [place] [id number] Ashley Rodriguez MD [address] [place] [id number] Severe dementia without behavioral disturbance, psychotic disturbance, mood disturbance, or anxiety, unspecified dementia type (HCC)*; Corticobasal syndrome (HCC); Primary parkinsonism Allergies No known active allergiesdocumented as of [...] Caps by mouth daily. 0 8 Active Additional Information Patient taking differently:2,000 Units [...] 3 days.. 20 g 1 2 Active Probiotic Daily Oral Capsule Take by [...] at bedtime. 90 mL 3 3 Active Carbidopa-Levodop a 25-100 MG Oral Tablet (Sinemet) Take one tablet three times a day, about 5 hours apart. 270 Tablet 3 3 Active SITagliptin Phosphate 25 MG Oral Tablet (Januvia) Take 1 Tablet by mouth in the morning. 0 Active Apixaban 5 MG Oral Tablet Take 0.5 Tablets by mouth in the morning and 0.5 Tablets before bedtime. 0 023 Discontinued polyethylene glycol 3350 (MIRALAX) 255 gram powder Take 17 g by mouth in the morning. 0 023 Discontinued Vitamin C 100 MG Oral Tablet Take 1 Tablet by mouth in the morning. 0 023 Discontinued Fluconazole 10 MG/ML Oral Suspension Reconstituted (Diflucan) Take by mouth daily . Vaginal yeast infection 0 023 Discontinued Amoxicillin-Pot Clavulanate 250-62.5 MG/5ML Oral Suspension Reconstituted Take by mouth 5 mL in the morning AND 5 mL at noon AND 5 mL before bedtime. 150 mL 0 2 023 Discontinued Nitrofurantoin 25 MG/5ML Oral Suspension (Furadantin) Take 10 mL by mouth in the morning and 10 mL at noon and 10 mL in the evening and 10 mL before bedtime. 200 mL 0 3 023 Discontinued documented as of this [...] above, IM , (FluLaval or Fluzone) 01/22/2018 Seasonal Influenza, Split, IIV3, With Preserve, Inj 02/26/1999 documented as of this encounter Social History [...] on file documented as of this encounter Progress Notes * Ashley Rodriguez MD - 04/17/2023 8:02 AM EST Patient location: HOME. I was in a hospital or clinic location. After connecting through televideo, patient was verified with two unique identifiers. Patient (or authorized legal bilingual sales representative) wasthen informed that this was a Telemedicine visit and being conducted confidentially over secure lines. Methods to assure confidentiality were taken. Patient acknowledged consent and understanding of privacy and security of the Telemedicine visit. The patient agreed to participate. [facility] Today I had the pleasure of seeing Kassandra Boykin in follow-up at the [facility] Program. Assessment & Plan As you may recall, she is a 82 year old right-handed female with a high school level education who has a chief complaint of corticobasal syndrome causing dementia (++aphasia, left neglect plus other cognitive issues) and parkinsonism. 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 In early severe stages. She was evaluated in June [address] Richardson with trouble with processing speed, executive functioning, memory and working memory and visual spatial issues; preserved naming and attention.Qualititatively, her language is effortful, preseverative, with decreased prosody, speech apraxia; parietal signs include hand as object (limb apraxia) right greater than left; agrapheasthesia. She has poor emotion recognition. Her MRI was asymmetric (right>left) parietal and insular atrophy, milder frontal atrophy, and minimal CV disease. 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 She had an LP which was inconclusive for AD. She was scheduled for [facility], but refused to go. Sinemet has been helpful for movement but pt has been having more freezing plus sometimes just needing to sit while walking. Higher doses (1.5 tabs imm release) caused VH. Now taking Sinemet IM 25/100mg twice (sometimes 3 times) daily. This has been best. Family will try giving 3rd dose before bed. Did not tolerate Aricept in the past. Exelon was stopped. Safety: fall risk. Ambulates with 1 person at each side of her. Swallow risk: Eating and drinking well--purred diet, decreased cough and swallow. Infection risk: Pt had been having multiple UTIs over the years requiring abx. She has seen urologyand also supervisor looping for vaginal bleeding (d/t dryness; has urethral dryness, on Premarin PRN). Cystocopy OK. Still with occasional UTIs. Has sacral ulcer. Recent COVID. Behavior: Anxiety better controlled with sertraline; now on 50 mg (groggy w higher doses). Daughter and son in law are main caregivers at home, and they have a paid caregiver coming in. At this point there is no need to consider further work-up, and it is reasonable to consider further treatment at this time. I provided in their check out material for the patient and children a written summary that outlinesthe diagnosis, prognosis, evaluation and management plan thus far after providing counseling on these items, which I also list below. They will return to our clinic in 6 months or sooner if needed. Encouraged daughter to send messages if needed. Family will think about hospice. Will send info about that ([facility]--[phone], fax [phone]) and spoon with lip. Thank you once again for allowing us to participate in the care of this patient. Interval History Since our last visit, by report of the family Kassandra Boykin has been doing about the same. More shaking in the right arm--before she gets sinemet. Swallowing is a problem--pills in applesauce or yogurt. She may aspirate at times. They puree her food intake. If she takes in too much at a time, she will choke. There has been a lot going on--her --all got COVID at the . He had been in hospital since . She seems to have gotten through COVID. She does not as much cough so was on antibiotics. They did not get Paxlovid --- they were told it would make them worse (?). Yesterday she started to eat and drink on her own again--she had "completely forgot how to do it". She is starting to get back to her normal. They were without a caregiver for 10 days during the COVID. Walking with assistance still (though not during COVID when she needed wheelchair). Daughter thought for a while they would need PT but she is "coming back". Left side more lagging behind, and they have to put left She is back to feeding herself. She is missing her mouth more with spoon more. That is also gettinga bit better. Other daughters coming in for her birthday and will bring [employer]'s ice cream cake ([facility] [place] Daughter says she does not get a whole lot of time to herself. She did not decorate or send cards for Xmas. Annette is the caregiver--she comes most days, except weekends. She sleeps well. As far as communication--hard to make her needs known. She does say "yes, yes" and may blink with her right eye "yes". Hit or miss to understand. She still has BMs on the pot. Now and then an enema is needed. Since COVID she has moving bowels onher own. She wears Depends for urine. On the pot during the day. She can't let them know when she needs to go. They do bathroom breaks. Has a half-abreu size sacral ulcer. It got worse with COVID. Daughter feels like she knows what to do. If it does not turn around she will see about a nurse. Hard to get a patch on it. Otherwise health is pretty good. May use O2 if she is having trouble. She has the drooling and the tongue and drooling all the time. May chew her tongue--no lesions. Shehas lost her bottom teeth. With regards to our instructions on last visit, the patient has been able to follow all recommendations. With regards to her health status during this time period, has not had any serious surgeries, emergency department visits or hospitalizations. Since their last visit, she has not had changes to her medications other than what I recommended onher last visit except Januvia. Outpatient Medications Prior to Visit Medication Sig Dispense Refill SITagliptin Phosphate 25 MG Oral Tablet (Januvia) Take 1 Tablet by mouth in the morning. Carbidopa-Levodopa 25-100 MG Oral Tablet (Sinemet) Take one tablet three times a day, about 5 hoursapart. 270 Tablet 3 Melatonin 10 MG/ML Oral Liquid Take 10 mg by mouth at bedtime. 90 mL 3 Sertraline HCl 100 MG Oral Tablet (Zoloft) TAKE 1/2 TABLET EVERY MORNING 45 Tablet 2 Famotidine 40 MG Oral Tablet (Pepcid) Take 1 Tablet by mouth in the morning. Probiotic Daily Oral Capsule Take by mouth 1 Capsule in the morning. Terconazole 0.8 % Vaginal Cream Administer into the vagina 1 Applicator before bedtime. For 3 days.. 20 g 1 metFORMIN HCl ER (MOD) 500 MG Oral Tablet Extended Release 24 Hour Take 1 Tablet by mouth daily with dinner. Four times a week Docusate Sodium 100 MG Oral Tablet Take 1 Tablet by mouth 2 times a day as needed for Constipation. Cranberry 1000 MG Capsule Take 1,000 mg by mouth daily. atorvaSTATin (LIPITOR) 40 MG Tablet Take 1 Tablet by mouth in the morning. ferrous sulfate (FEOSOL) 325 (65 FE) MG Tablet Take 1 Tablet by mouth in the morning. Three times aweek. sotalol (BETAPACE) 80 MG Tablet Take 0.5 Tablets by mouth in the morning and 0.5 Tablets before bedtime. Cholecalciferol (VITAMIN D3) 1000 units CAPS Take 2 Caps by mouth daily. (Patient taking differently: Take 2 Capsules by mouth in the morning. 3 times a week.) levothyroxine (SYNTHROID) 75 MCG Tablet Take 1 Tablet by mouth daily first thing in the morning. (at least 30 min prior to breakfast or other meds) [DISCONTINUED] Nitrofurantoin 25 MG/5ML Oral Suspension (Furadantin) Take 10 mL by mouth in the morning and 10 mL at noon and 10 mL in the evening and 10 mL before bedtime. 200 mL 0 [DISCONTINUED] Amoxicillin-Pot Clavulanate 250-62.5 MG/5ML Oral Suspension Reconstituted Take by mouth 5 mL in the morning AND 5 mL at noon AND 5 mL before bedtime. 150 mL 0 [DISCONTINUED] Fluconazole 10 MG/ML Oral Suspension Reconstituted (Diflucan) Take by mouth daily . Vaginal yeast infection Estrogens, Conjugated 0.625 MG/GM Vaginal Cream (Premarin) apply intravaginally 0.5g twice weekly 42.5 g 12 [DISCONTINUED] Vitamin C 100 MG Oral Tablet Take 1 Tablet by mouth in the morning. [DISCONTINUED] polyethylene glycol 3350 (MIRALAX) 255 gram powder Take 17 g by mouth in the morning. [DISCONTINUED] Apixaban 5 MG Oral Tablet Take 0.5 Tablets by mouth in the morning and 0.5 Tablets before bedtime. Acetaminophen ER (ARTHRITIS PAIN RELIEF) 650 MG TBCR Take 650 mg by mouth every 8 hours as needed for Fever. No facility-administered medications prior to visit. Last reviewed on 10/23/2022 3:17 PM by Coral Valdez LPN Review of patient's allergies indicates: No Known Allergies Results for orders placed or performed in visit on 10/23/22 CULTURE, URINE, QUANTITATIVE Specimen: Urine, Catheter Result Value Ref Range Culture Growth >100,000 colonies/mL Escherichia coli (A) Susceptibility Escherichia coli - MICROBROTH DILUTIONS Ampicillin Resistant Ampicillin/Sulbactam Intermediate Cefazolin Susceptible Cefepime Susceptible Ceftriaxone Susceptible Ciprofloxacin* Susceptible * Due to serious side effects, the FDA has advised against using Ciprofloxacin to treat uncomplicated UTIs and respiratory tract infections unless there are no alternative treatment options. Gentamicin Resistant Levofloxacin* Intermediate * Due to serious side effects, the FDA has advised against using Levofloxacin to treat uncomplicated UTIs and respiratory tract infections unless there are no alternative treatment options. Nitrofurantoin Susceptible Piperacillin Tazobactam Susceptible Tobramycin Intermediate Trimeth/Sulfamethoxazole Resistant Examination There were no vitals taken for this visit. On examination today, the patients general appearance was thin, well groomed. Sits with eyes mostly closed. Tongue protrudes out left side of mouth Can open eyes, tends to wink with right Does not answer or respond to examiner over video Additional Information Permission was not requested for observers to be in the room during this visit. This is a tele-video visit and today, I personally spent 53 minutes in pre reviewing the patient's outside/prior records, separately obtaining history, performing a medically appropriate history and exam as documented above, counseling and educating the patient, documenting the clinical informationin the EMR, independently reviewing and interpreting results as documented above and ordering prescription medications, tests and/or procedures as documented above Thank you once for consulting us on this interesting case. Assessment and plan can be found at the beginning of this consultation note. 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
--- OUTSIDE RECORDS SUMMARY | 2023-06-09 16:00 | External Medical Summary | Continuity of Care Document ---
Author Name Unknown Organization [address] Address [address] [place], [place] [id number] Care Team Providers Care Pipe Fitter Soft Copper Name Role Phone Sarita Francis Primary Care Physician [phone] [id number] Date(s): 05/29/23 - 05/29/23 [facility] [address], [address] [place] [address] [phone] Encounter Diagnosis Afib(Discharge Diagnosis) - 05/29/23 Anemia(Discharge Diagnosis) - 05/29/23 HTN (hypertension)(Discharge Diagnosis) - 05/29/23 Discharge Disposition: Home or Self Care Attending Physician: LISSETH Turcios Sarah A Referring Physician: DO Wharton Jason D Allergies, Adverse Reactions, Alerts No Known Allergies Assessment and Plan Extracted from: Title:Cardiology Office Visit Note Author:LISSETH Mercado rd, Sarah A Date:05/29/23 Impression: 1. Hgt-CO-thpadewox myocardial infarction in 2018. 2. Atrial fibrillation at the time of her heart attack and possibly again 03/2020. 3. Chronic anticoagulation with apixaban 2.5 mg b.i.d. 4. Chronic use of sotalol 40 mg b.i.d. 5. 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 6. Advanced Parkinson's disease. 7. Anemia. 8. Diabetes. 9. Negative MRA for aneurysms in 05/2019 with an MRI suggesting small-vessel disease. 10. Echocardiogram 04/18/2021: Small underfilled left ventricle, EF 65-70%, normal RV size and function and no significant valvular heart disease. Ms. Boykin is stable. I did ask that they make a nursing visit for an EKG as it has been since August and she is on Sotalol and needs one every 6 months. She will also have a cbc and bmp when she comes in for the EKG. She has had controlled heart rates and so likely has not had any afib. Her blood pressure is controlled. She will return to the clinic in 6 months. Immunizations Given and Recorded Vaccine Date Status Refusal Reason pneumococcal 23-valent vaccine 09/19/22 Given SARS-CoV-2 (COVID-19) mRNA-1273 vaccine 09/21/21 R ecorded SARS-CoV-2 (COVID-19) mRNA-1273 vaccine 04/20/21 R ecorded SARS-CoV-2 (COVID-19) mRNA-1273 vaccine 06/03/20 R ecorded influenza virus vaccine, inactivated 02/24/21 Give n Medications atorvastatin 40 mg oral tablet Start: 10/16/22 19:36:00 EDT, 1 tab, PO, qhs, Disp# 90 tab, Refills: 3, Pharmacy: [facility] Start Date: 10/16/22 Status: Ordered azelastine 137 mcg/inh (0.1%) nasal spray Start: 09/24/20 13:19:00 EDT, 1 spray, each nostril, bid, Disp# 3 each, Refills: 1, PRN: as needed for allergy symptoms, Pharmacy: [facility] Start Date: 09/24/20 Status: Ordered BD Test Strips 100 ct Start: 08/05/21 19:05:00 EDT, See Instructions, Disp# 100 each, Refills: 6, test daily, Dx E11.9, Pharmacy: [id number] Start Date: 08/05/21 Status: Ordered carbidopa-levodopa 25 mg-100 mg oral tablet Start: 10/08/19 14:45:00 EDT, 1 tab, PO, bid, extended release Start Date: 10/08/19 Status: Ordered cefdinir 250 mg/5 mL oral liquid Start: 04/06/23 16:28:00 EST, 300 mg =, PO, q12h, Disp# 120, Refills: 0, Pharmacy: [id number] Start Date: 04/06/23 Stop Date: 04/16/23 Status: Ordered cefuroxime 500 mg oral tablet Start: 04/03/23 12:19:00 EST, 1 tab, PO, bid, Disp# 14, Refills: 0, Pharmacy: [id number] Start Date: 04/03/23 Stop Date: 04/10/23 Status: Ordered docusate sodium Start: 05/05/22 13:26:00 EST Start Date: 05/05/22 Status: Ordered Feosol 325 mg (65 mg elemental iron) oral tablet Start: 10/08/19 14:47:00 EDT, Three times a week Start Date: 10/08/19 Status: Ordered glucometer Start: 08/05/21 19:04:00 EDT, See Instructions, Disp# 1 each, Refills: 0, test daily,Dx E11.9, Pharmacy: [id number] Start Date: 08/05/21 Status: Ordered hydrocortisone 2.5% topical cream Start: 05/30/22 17:06:00 EST, See Instructions, Disp# 30 g, Refills: 0, apply rectally twice daily,Pharmacy: [id number] Start Date: 05/30/22 Status: Ordered lancets Start: 08/05/21 19:06:00 EDT, See Instructions, Disp# 100 each, Refills: 6, test daily, E11.9, Pharmacy: [id number] Start Date: 08/05/21 Status: Ordered Lasix 20 mg oral tablet Start: 11/05/20 14:42:00 EDT, See Instructions, Disp# 30 tab, Refills: 3, 1 tab PO as needed for swelling, Pharmacy: [id number] Start Date: 11/05/20 Status: Ordered Melatonin 10 mg oral capsule Start: 10/08/19 14:46:00 EDT Start Date: 10/08/19 Status: Ordered metFORMIN 500 mg oral tablet Start: 05/24/23 17:44:00 EST, 1 tab, PO, Daily, Disp# 90 tab, Refills: 3, Pharmacy: [facility] Start Date: 05/24/23 Status: Ordered nystatin 100,000 units/g topical ointment Start: 06/04/20 13:23:00 EST, 1 appl, topical, tid, Disp# 30 g, Refills: 3, Pharmacy: [facility] Start Date: 06/04/20 Status: Ordered One Touch Delica Plus (33G) Lancets Start: 08/16/21 9:09:00 EDT, See Instructions, Disp# 100 each, Refills: 6, test daily, Dx : E11.9, Pharmacy: [id number] Start Date: 08/16/21 Status: Ordered One Touch Ultra 2 Glucose Monitor Start: 08/16/21 9:09:00 EDT, See Instructions, Disp# 1 each, Refills: 0, Test daily, dx : E11.9, Pharmacy: [id number] Start Date: 08/16/21 Status: Ordered One Touch Ultra Test Strips 100 ct Start: 08/16/21 9:09:00 EDT, See Instructions, Disp# 100 each, Refills: 6, test daily, Dx : E11.9, Pharmacy: [id number] Start Date: 08/16/21 Status: Ordered Probiotic Formula (Bacillus Coagulans) Start: 11/18/21 13:20:00 EDT, w. cranberry Start Date: 11/18/21 Status: Ordered sertraline 50 mg oral tablet Start: 05/24/23 17:44:00 EST, 1 tab, PO, Daily, Disp# 90 tab, Refills: 3, Pharmacy: [facility] Start Date: 05/24/23 Status: Ordered SITagliptin 25 mg oral tablet Start: 12/13/22 16:49:00 EDT, 1 tab, PO, Daily, Disp# 30 tab, Refills: 6, Pharmacy: [id number] Start Date: 12/13/22 Status: Ordered sotalol 80 mg oral tablet Start: 07/10/22 10:06:00 EDT, See Instructions, Disp# 90 tab, Refills: 3, TAKE 1/2 TABLET TWICE A DAY, Pharmacy: [facility] Start Date: 07/10/22 Status: Ordered Synthroid 50 mcg (0.05 mg) oral tablet Start: 10/16/22 19:36:00 EDT, See Instructions, Disp# 90 tab, Refills: 1, TAKE 1 TABLET DAILY, Pharmacy: [facility] Start Date: 10/16/22 Status: Ordered Vitamin D2 2000 intl units oral capsule Start: 10/08/19 14:47:00 EDT Start Date: 10/08/19 Status: Ordered Zinc Start: 04/03/23 11:24:00 EST Start Date: 04/03/23 Status: Ordered Mental Status 05/29/23 Barriers to Learning one year None evide nt Mandatory Health Literacy Documentation Yes Health Literacy Communication Barriers N ever Primary Language Sami Problem List Condition Confirmation Course Effective Dates [...] Dates Health Status Cl inical Service Informant Afib Discharge Diagnosis 05/29/23 Non-Specified Anemia Discharge Diagnosis 05/29/23 Non-Specified HTN (hypertension) Discharge Diagnosis 05/29/23 Non-Specified Procedures Procedure Date Related Diagnosis Body [...] 33 mm everolimus eluting stent into LAD Cardiology Outpatient Note * LISSETH Turcios Sarah A: PERFORM, MODIFY Event Display: Cardiology Outpt Note Authored Date: [id number] Primary Care Provider MD Penny, Sarita Hernandez Referring Provider DO Wharton Jason D Chief Complaint follow up History of Present Illness Ms. Boykin presents for follow up ofher history of coronary artery disease, status post ksu-RY-irivdrmuh myocardial infarction, atrial fibrillation at the time of her infarction, currently on sotalol 40 mg b.i.d., chronic anticoagulation, and history of bradycardia. This visit was done via [facility] on demand. I was in the office, the patient was at home. Her daughter identified her name and date of . She consented to this billable visit. Her daughter is with her and provides her history as she is aphasic. She has not had any worsening sob. No indication of pain. She uses supplemental O2 prn. Her heart rates at home have been in the 60s. BP today was 132/85. No recent falls.She is eating and drinking well. Review of Systems All other systems reviewed and negative except as discussed in the HPI Physical Exam Physical Examination General: Alert and oriented, No acute distress. Respiratory: Lungs are clear to auscultation, Respirations are non-labored. Cardiovascular: Normal rate, Regular rhythm, No murmur, No edema, no carotid bruits to auscultation bilaterally. Integumentary: Warm, Dry, [place] Neurologic: Alert, Oriented. Cognition and Speech: Speech clear and coherent. Psychiatric: Cooperative, Appropriate mood & affect. Assessment/Plan Impression: 1. Xsp-JG-cksobpfps myocardial infarction in 2018. 2. Atrial fibrillation at the time of her heart attack and possibly again 03/2020. 3. Chronic anticoagulation with apixaban 2.5 mg b.i.d. 4. Chronic use of sotalol 40 mg b.i.d. 5. 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 6. Advanced Parkinson's disease. 7. Anemia. 8. Diabetes. 9. Negative MRA for aneurysms in 05/2019 with an MRI suggesting small-vessel disease. 10. Echocardiogram 04/18/2021: Small underfilled left ventricle, EF 65-70%, normal RV size and function and no significant valvular heart disease. Ms. Boykin is stable. I did ask that they make a nursing visit for an EKG as it has been since August and she is on Sotalol and needs one every 6 months. She will also have a cbc and bmp when she comes in for the EKG. She has had controlled heart rates and so likely has not had any afib. Her blood pressure is controlled. She will return to the clinic in 6 months. Problem List/Past Medical History Ongoing Acute COVID-19 [...] mg oral tablet), 1 tab, PO, bid cefdinir(cefdinir 250 mg/5 mL oral liquid), 300 mg, PO, q12h cefuroxime(cefuroxime 500 mg oral tablet), 500 mg= [...] tablet), 50 mg= 1 tab, PO, Daily, 3 refills SITagliptin(SITagliptin 25 mg oral tablet), 25 [...] Member(s) Family Member(s) Relationship: Mother, Age: Unknown Electronic Signature on File CC: Sarita Francis MD [address] [place] [id number] Electronically Reviewed/Signed by: LISSETH Rivero Author Signature Dt/Tm:05/29/2023 04:35 PM [facility] [place] [facility] Patient Care team information Care Team Personnel Name: MD Francis Amy L Position: Physician - Family Med Member Role: Primary Care Provider Address: Address: [address] [place] [address] [address] [place] [address] [place] Care Team Related Persons Name: YASMIN SHEARER
--- OUTSIDE RECORDS SUMMARY | 2023-06-09 16:00 | External Medical Summary | Summary of Care ---
Author Name Unknown Organization [facility] Address [address] [facility] [address] Phone [phone] Care Team Providers Care Seed Core Operator Name Role Phone Sarita Francis MD Primary Care Provider [phone] Reason for Visit * Reason Comments Outpatient Testing Encounter Details Date Type Department Care Team (Late st Contact Info) Description 05/22/2023 8:20 AM EST Laboratory Laboratory, [facility] [address] [place] [phone] 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 Mixed dyslipidemia documented as of this encounter (statuses as of 05/22/2023) Immunizations Name Administration Dates Next Due Seasonal [...] Care Team (Late st Contact Info) Description 10/18/2023 3:00 PM EDT Telemedicine Neurology, [place] [address] [place] [address] Ashley Rodriguez MD [address] [place] [address] [place] [address] 10/31/2023 3:30 PM EDT Office Visit Urology Nick Aiken [address] [place] [address] Arie Gordon Jr., MD [address] [place] [address] Pending Results Name Type Priority Associated Diagnoses Date /Time CULTURE, URINE, QUANTITATIVE Lab Routine Recurrent UTI 05/22/2023 8:18 AM EST Health Maintenance Due Date Last Done Comments [...] as of this encounter Visit Diagnoses Diagnosis Recurrent UTI Urinary tract infection, site not specified documented in this encounter Care Teams Seed Core Operator Relationship Specialty Start Date End Date Sarita Francis MD [address] [facility] [place] [address] PCP - General Family Medicine 03/23/21 documented as of this encounter
--- OUTSIDE RECORDS SUMMARY | 2023-06-09 16:00 | External Medical Summary | Summary of Care ---
Author Name Unknown Organization [facility] Address [address] [place] [address] Phone [phone] Care Team Providers Care Real Estate Investor Name Role Phone Sarita Francis MD Primary Care Provider [phone] Encounter Details Date Type Department Care Team (Late st Contact Info) Description 05/25/2023 Telephone [facility] Urology [address] [facility] [place] [address] Scott Fox MD [address] [facility] [address] [place] [address] Allergies No known active allergiesdocumented as of this encounter (statuses as of 05/25/2023) Medications Medication Sig Dispensed Refills Start Date [...] at bedtime. 90 mL 3 10/24/2022 Active Carbidopa-Levodo pa 25-100 MG Oral Tablet (Sinemet) Take one tablet three times a day, about 5 hours apart. 270 Tablet 3 02/07/2023 Active SITagliptin Phosphate 25 MG Oral Tablet (Januvia) Take 1 Tablet by mouth in the morning. 0 Active Ampicillin 500 MG Oral Capsule Take 1 Capsule by mouth in the morning and 1 Capsule at noon and 1 Capsule in the evening. Do all this for 5 days. 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 Patient is symptomatic so advised picking up antibiotic. * Telephone Encounter - Scott Fox MD - 05/25/2023 12:59 PM EST Culture suggests contaminant organism with CIC, but if symptomatic will cover with ampicillin, RX sent. Thx, HM documented in this encounter Plan of Treatment Upcoming Encounters Date Type Department Care Team (Late st Contact Info) Description 10/18/2023 3:00 PM EDT Telemedicine Neurology, [place] [address] [facility] [address] [place] [address] Ashley Rodriguez MD [address] [place] [address] [place] [address] 10/31/2023 3:30 PM EDT Office Visit Urology Nick Aiken [address] [place] [address] Arie Gordon Jr., MD [address] [place] [address] Health Maintenance Due Date Last Done Comments [...] filedocumented as of this encounter Care Teams Real Estate Investor Relationship Specialty Start Date End Date Sarita Francis MD [address] [place] [address], [place] [address] PCP - General Family Medicine 03/23/21 documented as of this encounter
--- OUTSIDE RECORDS SUMMARY | 2023-06-09 16:00 | External Medical Summary ---
Author Name Unknown Address Unknown Organization K01:[facility] [place] [address] [place] [address] Laboratory Report Ordering Provider Test Date Status WINSTON BARRAZA JR 05/22/2023 08:18:12 Final Observation Date Value Abnormality Reference (Units) Status Bacteria identified in Specimen by Culture 05/22/2023 08:18:12 [id number]^BETA STREPTOCOCCUS GROUP B Abnormal Final >100,000 colonies/mL Beta St reptococcus group B Performing Location [facility] [place] [facility] [address] [place] [address] Ordering Provider Test Date Status WINSTON BARRAZA JR 05/22/2023 08:18:12 Final Observation Date Value Abnormality Reference (Units ) Status Penicillin susceptibility 05/22/2023 08:18:12 0.12 Susceptible Final Vancomycinsusceptibility 05/22/2023 08:18:12 0.5 Susceptible Final Test: Culture, Urine, Quanti tative
Specimen Source: Urine, Clean Catch
Specimen Type: Urine
Specimen Date: 05/22/2023 8:18 AM
Result Date: 05/24/2023 3:37 PM
Result Status: Final result
Abnormal: Yes
Resulting Lab: [facility] [place]
[address]
[place] [address]

CULTURE

>100,000 colonies/mL Beta Streptococcus group B (Abnormal)

SUSCEPTIBILITY

Beta
Streptococcus
group B
METHOD MICROBROTH
DILUTIONS

PENICILLIN G 0.12 Susceptible
VANCOMYCIN 0.5 Susceptible

null Performing Location [facility] [place] [address] [facility] [address]
--- OUTSIDE RECORDS SUMMARY | 2023-06-09 16:00 | External Medical Summary | Summary of Care ---
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 After connecting through televideo,patient was verified with two unique identifiers. Patient (or authorized legal telephone sales representative) was then informed that this was a Telemedicine visit and being conducted confidentially over secure lines. Methods to assure confidentiality were taken. Patient acknowledged consent and understanding of pr ivacy and security of the Telemedicine visit. The patient agreed to participate. [facility]ORY [facility] COGNITION [facility] Today I had the pleasure of seeing Kassandra Boykin in follow-up at the [facility] Memory and Cognition Program. Assessment & Plan [...] requiring abx. She has seen urologyand also spanisher for vaginal bleeding (d/t dryness; has urethral [...] about hospice. Will send info about that ([facility]--[phone], fax [phone]) and spoon with lip. Thank you once [...] in for her birthday and will bring [employer]'s ice cream cake ([facility] Daughter says she does not get a [...] [address] [place] [address] Arie Gordon Jr., MD [address] [place] [address] Health Maintenance Due Date Last Done Comments [...] agitans documented in this encounter Care Teams Dental Equipment Mechanic Relationship Specialty Start Date End Date Sarita Francis MD [address] [place] [address] PCP - General Family Medicine 03/23/21 documented as of this encounter
--- OUTSIDE RECORDS SUMMARY | 2023-06-09 16:00 | External Medical Summary | Summary of Care ---
Author Name Unknown Organization [facility] Address [address] [facility] [place] [address] Phone [phone] Care Team Providers Care Locomotive Firer Name Role Phone Sarita Francis MD Primary Care Provider [phone] Reason for Visit * Reason Comments eRx-Medication Refill Encounter Details Date Type Department Care Team Description 02/05/2023 Refill Neurology, [place] [facility] [address] [place] [phone] Ashley Rodriguez MD [address] [place] [place] [address] Allergies No known active allergiesdocumented as of this encounter (statuses as of 02/07/2023) Medications Medication Sig Dispensed Refills Start Date [...] Caps by mouth daily. 0 06/08/2017 Active Apixaban 5 MG Oral Tablet Take [...] 3 days.. 20 g 1 07/14/2021 Active Fluconazole 10 MG/ML Oral Suspension Reconstituted [...] 5 mL before bedtime. 150 mL 0 11/28/2021 Active Sertraline HCl 100 MG Oral Tablet (Zoloft) TAKE 1/2 TABLET EVERY MORNING 45 Tablet 2 08/21/2022 Active Melatonin 10 MG/ML Oral Liquid Take 10 mg by mouth at bedtime. 90 mL 3 10/24/2022 Active Nitrofurantoin 25 MG/5ML Oral Suspension (Furadantin) Take 10 mL by mouth in the morning and 10 mL at noon and 10 mL in the evening and 10 mL before bedtime. 200 mL 0 10/25/2022 Active Carbidopa-Levodopa ER 25-100 MG Oral Tablet Extended Release (Sinemet CR) Take 1 Tablet by mouth in the morning and 1 Tablet before bedtime. 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 Mixed dyslipidemia documented as of this encounter (statuses as of 02/07/2023) Immunizations Name Administration Dates Next Due SEASONAL INFLUENZA, PF, 6 M & Above, IM , (FLULAVAL or FLUZONE) 01/22/2018 documented as of this encounter Social [...] encounter Miscellaneous Notes * Telephone Encounter - Steph Moody [facility] - 02/07/2023 10:27 AM EDTRefused Prescriptions: Disp Refills Carbidopa-Levodopa 25-100 MG Oral Tablet (*135 Ta*0 Sig: Take tablets oralally as directed: Days 1-3: 1.5 tabs at 9am, 1 tab at 1pm, and 1 tab at 5pm; Days 4-6: 1.5 tabs at 9am, 1.5 tabs at 1pm, and 1 tab at 5pm; Day 7 and after: 1.5 tabs three times a day.Refused By: STEPH MOODY for Refusal: Refill Not AppropriateReason for Refusal Comment: pt on CR formulation * Telephone Encounter - Interface, [facility] - 02/07/2023 10:20 AM EDT Pending Prescriptions: Disp Refills Carbidopa-Levodopa 25-100 MG Oral Tablet [*135 Ta*0 Sig: Take tablets oralally as directed: Days 1-3: 1.5 tabs at 9am, 1 tab at 1pm, and 1 tab at 5pm; Days 4-6: 1.5 tabs at 9am, 1.5 tabs at 1pm, and 1 tab at 5pm; Day 7 and after: 1.5 tabs three times a day.------ documented in this encounter Plan of Treatment Upcoming Encounters Date Type Specialty Care Team Description 04/17/2023 Telemedicine Neurology Ashley Rodriguez MD [address] [place] [address] [place] [address] 10/31/2023 Office Visit Urology Evan Parisi, Arie Bonner MD [address] [place] [phone] Health Maintenance Due Date Last Done Comments DXA Scan 1940 Depression Screening 1952 DTaP,Tdap,and Td Vaccines (1 - Tdap) 1959 Zoster Vaccines (1 of 2) 1990 Pneumococcal Vaccine: 65+ Years (1 - PCV) 2005 TSH 11/30/2019 11/29/2018, 08/28, 03/13/2018, Additional history exists COVID-19 Vaccine (2 - 2022-24 season) 2022 06/03/2020 Influenza Vaccine (FLU shot) [...] filedocumented as of this encounter Care Teams Locomotive Firer Relationship Specialty Start Date End Date Sarita Francis MD [address] [place] [address] PCP - General Family Medicine 03/23/21 documented as of this encounter
--- NOTE | 2023-06-09 16:27 | Emergency Department Note ---
History of Present Illness General Chief complaint: Cardiac Assessment Time Seen by Provider: 06/09/23 16:14 History of Present Illness 83-year-old female presents emergency department via EMS reportedly with an elevated heart rate history of A-fib. Patient recently had metoprolol XR added to her regimen she is currently on sotalol. She is taking 25 mg of metoprolol XR this past week after being seen by cardiology. Patient's had decreased p.o. intake over the past few days. Patient has been given water. Patient is also experiencing a urinary tract infection is currently on ampicillin according to the family. Patient has been generally weak with fatigue over the past few days. There are no other complaints. They were told by the cardiology office if she did not improve to seek medical treatment by Sunday. Home Medications Medication Instructions Recorded Confirmed Type atorvastatin 40 mg tablet (Lipitor) 40 mg PO HS 06/15/19 06/09/23 History carbidopa 25 mg-levodopa 100 mg 1 tab PO TID 06/15/19 06/09/23 History tablet cholecalciferol (vitamin D3) 50 50 mcg PO QAM 06/15/19 06/09/23 History mcg (2,000 unit) tablet (Vitamin D3) ferrous sulfate 325 mg (65 mg 325 mg PO 3XWK 06/15/19 06/09/23 History iron) tablet (iron) sertraline 50 mg tablet 50 mg PO QAM 06/15/19 06/09/23 History sotalol 80 mg tablet 40 mg PO BID 06/15/19 06/09/23 History Lactobacillus acidophilus 250 1,000 mmu cells PO QA 09/13/22 06/09/23 History million cell capsule (Probiotic Acidophilus) docusate sodium 100 mg capsule 100 mg PO BID 09/13/22 06/09/23 History levothyroxine 50 mcg tablet 50 mcg PO QAM 09/13/22 06/09/23 History (Synthroid) loratadine 10 mg tablet (Claritin) 10 mg PO DAILY PRN seasonal 09/13/22 06/09/23 History allergies melatonin 10 mg tablet 10 mg PO HS 09/13/22 06/09/23 History metformin 500 mg tablet 500 mg PO QAM 09/13/22 06/09/23 History protein supplement See Rx Instructions .Route .COMPLEX 09/13/22 06/09/23 History sodium phosphates 19 gram-7 197 ml MI DAILY PRN Constipation 09/13/22 06/09/23 History gram/118 mL enema (Fleet Enema) ampicillin 500 mg capsule 500 mg PO TID 06/09/23 06/09/23 History sitagliptin phosphate 25 mg tablet 25 mg PO QAM 06/09/23 06/09/23 History (Januvia) Allergies Allergy/AdvReac Type Severity Reaction Status Date / Time No Known Allergies Allergy Verified 06/09/23 17:08 Past Med/Surg History Medical History Encounter for pre-operative examination Anemia Raynauds syndrome On home oxygen therapy only prn 2lpm via n/c. 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 "levels run good though" Hypothyroidism Diabetes mellitus, type 2 NIDDM History of shingles 1994 in the left eye. 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 Silver ([facility], Neurology). denies hallucinations and agitation. mainly nonverbal; will randomly answer appropriately History of esophageal cancer (1992) surgical intervention and chemo/radiation History of stomach cancer (1992) surgical intervention and chemo/radiation NSTEMI (non-ST elevated myocardial infarction) 2018. Afib 2018 - controlled with medication. Follows with Dr. Wharton - no longer on anticoagulants. Surgical History History of esophagogastroduodenoscopy (EGD) History of colonoscopy History of heart artery stent x1 stent in LAD 12/13/2017 at [facility] History of cardiac cath 2018 at [facility] H/O esophagectomy (~1992) with a gastric pull up ([facility] August) H/O: hysterectomy Family History Other No family history of adverse response to anesthesia Social History Smoking Status: Unknown if ever smoked Second Hand Exposure: No; Do You Dip or Chew Tobacco: No; Hx Alcohol Use: No Hx Substance Use: No Preferred Language: Italian Communication Ability: Impaired Communication Ability Comment: mainly nonverbal, will answer appropriately at times. Intake Counselor Required: No Beliefs That Will Affect Care: None Current Living Situation: Family Current Living Situation Comment: lives with daughterAbbie Feels Safe at Home: Yes Assistive Devices: Denture - Upper, Wheelchair and Other Review of Systems Unobtainable due to cognitive status Constitutional: + weakness Per family Physical Exam Vital Signs Vital Signs - 24 hr 06/09/23 16:08 06/09/23 16:12 06/09/23 16:27 Temperature 36.8 C Temperature Source Axillary Pulse Rate 135 H 142 H 140 H Pulse Rate from SpO2 Sensor Respiratory Rate 20 21 Respiratory Effort / Characteristics Non-Labored Spontaneous Respiratory Depth Normal Respiratory Pattern Regular Blood Pressure 114/98 Blood Pressure Mean 103 Pulse Oximetry 94 Oxygen Delivery Method Nasal Cannula Oxygen Flow Rate 3 Sepsis Recent Fever Within 48 Hours No Sepsis New/Unexplained Change in Mental Status N/A Sepsis Action Taken by Nursing No Action Required 06/09/23 16:30 06/09/23 16:59 06/09/23 17:00 Temperature Temperature Source Pulse Rate 139 H 144 H Pulse Rate from SpO2 Sensor Respiratory Rate 30 H Respiratory Effort / Characteristics Respiratory Depth Respiratory Pattern Blood Pressure 108/77 108/77 Blood Pressure Mean 83 Pulse Oximetry 95 Oxygen Delivery Method Oxygen Flow Rate Sepsis Recent Fever Within 48 Hours Sepsis New/Unexplained Change in Mental Status Sepsis Action Taken by Nursing 06/09/23 17:00 06/09/23 17:18 06/09/23 17:18 Temperature Temperature Source Pulse Rate 141 H 136 H Pulse Rate from SpO2 Sensor 127 H 86 Respiratory Rate 28 H 30 H Respiratory Effort / Characteristics Respiratory Depth Respiratory Pattern Blood Pressure 91/72 L Blood Pressure Mean 78 Pulse Oximetry 95 99 Oxygen Delivery Method Oxygen Flow Rate Sepsis Recent Fever Within 48 Hours Sepsis New/Unexplained Change in Mental Status Sepsis Action Taken by Nursing 06/09/23 17:30 Temperature Temperature Source Pulse Rate 140 H Pulse Rate from SpO2 Sensor 132 H Respiratory Rate 30 H Respiratory Effort / Characteristics Respiratory Depth Respiratory Pattern Blood Pressure Blood Pressure Mean Pulse Oximetry 100 Oxygen Delivery Method Oxygen Flow Rate Sepsis Recent Fever Within 48 Hours Sepsis New/Unexplained Change in Mental Status Sepsis Action Taken by Nursing GENERAL: Patient is awake alert in no acute distress patient is resting comfortably and showing no signs of anxiety; patient is ill-appearing EYES: The conjunctivae are clear. The pupils are round and reactive. EARS, NOSE, MOUTH AND THROAT: The nose is without any evidence of any deformity. Mucous membranes are moist. Tongue is midline. NECK: The neck is nontender and supple. RESPIRATORY: Normal respiratory effort is noted there is no evidence of wheezing rhonchi or rales CARDIOVASCULAR: Irregularly irregular and tachycardic noted there no murmurs rubs or gallops normal S1 normal S2. GASTROINTESTINAL: The abdomen is soft. Abdomen is nontender. BACK: No midline tenderness or or step-off noted range of motion in flexion extension as well as rotation no signs of muscle spasm noted MUSCULOSKELETAL/EXTREMITIES: There is no evidence of gross deformity full range of motion is noted in the hips and shoulders. SKIN: There is no obvious evidence of any rash. There are no petechiae, pallor or cyanosis noted. NEUROLOGIC: Patient is awake alert, nonverbal noninteractive Course Reevaluation(s) Reevaluation #1: Patient was started on IV fluids, Rocephin, Cardizem, Lopressor. Time: 18:00 Reevaluation #2: I discussed evaluation with the patient's family at bedside regarding the patient's presentation Time: 18:00 Consultations Consultation #1: [facility] at bedside Time: 18:00 Administered Medications Discontinued Medications Diltiazem HCl (Diltiazem Hcl 5 Mg/Ml 5 Ml Vial) 10 mg IV NOW STA Stop: 06/09/23 17:10 Last Admin: 06/09/23 17:15 Dose: 10 mg Documented By: JUSTIN Co-signed By: SRUTHI Diltiazem HCl (Diltiazem Hcl 5 Mg/Ml 5 Ml Vial) 10 mg IV NOW STA Stop: 06/09/23 17:56 Last Admin: 06/09/23 18:10 Dose: Not Given Documented By: JUSTIN Sodium Chloride (Nss) 1,000 mls @ 999 mls/hr IV .Q1H1M STA Stop: 06/09/23 17:15 Last Admin: 06/09/23 16:59 Dose: 999 mls/hr Documented By: JUSTIN Diltiazem HCl 125 mg/ Dextrose 125 mls @ 5 mls/hr IV .Q24H [facility]; Protocol Stop: 07/09/23 17:59 Last Admin: 06/09/23 18:11 Dose: Not Given Documented By: JUSTIN Metoprolol Tartrate (Metoprolol Tartrate 1 Mg/Ml Vial) 5 mg IV NOW STA Stop: 06/09/23 16:23 Last Admin: 06/09/23 16:59 Dose: 5 mg Documented By: JUSTIN Critical Care Time Critical Care Time: Yes Total Critical Care Time: 35 I have personally spent greater than 35 minutes of critical care time in the direct management of this patient. This includes bedside care, interpretation of diagnostic studies, and testing, discussion with consultants, patient, and family members, and other required patient management activities. These minutes are in excess of all separately billable procedures. Medical Decision Making Medical Records Attestation: I reviewed the patient's medical records. Home Medications Current Medication List: was personally reviewed by me Laboratory Data Attestation: I reviewed the patient's lab results. Lab results interpreted by me patient has an elevated blood sugar, elevated BUN, elevated lactate 06/09/23 14:17 06/09/23 14:17 Lab Results 06/09/23 06/09/23 06/09/23 Range/Units 14:17 17:12 18:47 WBC 9.95 (4.8-10.8) K/ul RBC 3.93 L (4.20-5.40) M/uL Hgb 11.7 L (12.0-16.0) g/dl Hct 36.3 L (37.0-47.0) % MCV 92.4 (80.0-100.0) fL MCH 29.8 (25.0-34.0) pg MCHC 32.2 (32.0-36.0) g/dL RDW Std Deviation 54.3 H (36.4-46.3) fL RDW Coeff of Gabby 16.0 H (11.5-14.5) % Plt Count 256 (130-400) K/uL MPV 11.2 (9.4-12.4) fL Immature Gran % (Auto) 0.6 % Neut % (Auto) 82.5 % Lymph % (Auto) 8.5 % Esmeralda % (Auto) 8.1 % Eos % (Auto) 0.0 % Baso % (Auto) 0.3 % Neut # (Auto) 8.20 H (1.40-6.50) K/uL Lymph # (Auto) 0.85 L (1.20-3.40) K/uL Esmeralda # (Auto) 0.81 H (0.11-0.59) K/uL Eos # (Auto) 0.00 (0.00-0.50) K/uL Baso # (Auto) 0.03 (0.00-0.20) K/uL Immature Gran # (Auto) 0.06 (0.01-0.20) K/uL PT 11.4 (9.0-12.0) Seconds INR 1.0 (0.9-1.1) APTT 26 (21-31) Seconds PTT Ratio 0.9 ABG pH Cancelled ABG pCO2 Cancelled ABG pO2 Cancelled ABG HCO3 Cancelled ABG O2 Saturation Cancelled ABG Base Excess Cancelled Krunal Test Cancelled Barometric Pressure Cancelled Oxygen Given Cancelled Sodium 133 L (136-145) mmol/L Potassium 5.1 (3.5-5.1) mmol/L Chloride 103 (98-107) mmol/L Carbon Dioxide 21 (21-32) mmol/L Anion Gap 9 (3-11) BUN 65 H (6-23) mg/dl Creatinine 1.06 (0.6-1.2) mg/dl Est Cr Clr Drug Dosing 29.6 ml/min Est GFR ( Amer) 56.2 ml/min Est GFR (Non-Af Amer) 48.5 ml/min BUN/Creatinine Ratio 61.3 H (10-20) Glucose 320 H* (70-99(Fasting)) mg/dl Lactate 3.5 H* (0.4-2.0) mmol/L Calcium 8.9 (8.6-10.3) mg/dl Total Bilirubin 0.3 (0.2-1.0) mg/dl AST 58 H (13-39) U/L ALT 27 (7-52) U/L Alkaline Phosphatase 98 (34-104) U/L Troponin I High Sens 22.9 H (0-14) pg/ml Total Protein 6.8 (6.0-8.3) gm/dl Albumin 3.6 (3.4-5.0) gm/dl Globulin 3.2 (2.5-4.0) gm/dl Albumin/Globulin Ratio 1.1 (0.9-2) Lipase 3 L (11-82) U/L Procalcitonin 0.11 (0-0.5) ng/ml Imaging Data Attestation: I personally reviewed and interpreted this imaging study as follows: My Impression: Chest x-ray interpreted by me patient is rotated; there is a questionable left lower lobe effusion Radiologist's Impression: Chest X-Ray 06/09/23 16:15 SINGLE VIEW CHEST CLINICAL HISTORY: Atypical chest pain. FINDINGS: 2 AP, portable, upright chest radiographs are compared to study dated 11/27/2020 and correlated with chest CT dated 06/15/2019. The examination is severely degraded by portable technique and patient rotation. The patient's had largely obscures the right apex on one of the images. The heart is enlarged noting atherosclerotic calcification of the thoracic aorta. The pulmonary vasculature is noncongested. A right basilar opacity likely corresponds to a known gastric pull-through procedure. There is a left pleural effusion with dependent consolidation. There is no pneumothorax. The skeletal structures are osteopenic. There is chronic posttraumatic deformity of the right posterior ribs. Degenerative change is noted in the shoulders and spine. There is chronic deformity of the right proximal humerus. IMPRESSION: 1. Cardiomegaly without radiographic evidence of congestive failure. 2. There is a left pleural effusion with dependent consolidation. This was also seen on prior studies and may be chronic. Correlate clinically. ACT 112: Negative or not required by law. Electronically signed by: Golden Bello M.D. 06/09/2023 4:37 PM ECG Data Attestation: I personally reviewed and interpreted this ECG as follows: Additional Comments: EKG interpreted by me atrial flutter rate of [address]-T change no obvious ST segment elevation or depression, normal axis Telemetry interpreted by atrial fibrillation rate of 138 MDM Narrative Medical decision making differential diagnosis includes rapid atrial fibrillation, urinary tract infection, sepsis, dehydration, electrolyte abnormality, cardiac dysrhythmia Plan is to check sepsis labs, EKG, chest x-ray, respiratory swab, give IV fluids, IV Lopressor Family is at bedside provide me history of the patient have a urinary tract infection and a history of A-fib which she was prescribed metoprolol 25 XR this past week. They state that they do not want her intubated or resuscitated however they do agree with IV antibiotics and IV fluids and IV treatments Family has shown me the patient's labs from last week in which the patient had a BUN of 45 and a creatinine 0.9 and hemoglobin of 12.7 Patient was found to be in rapid A-fib flutter, patient was given a dose of Cardizem, patient was given a dose of Lopressor patient had a transient decrease of her heart rate below 100 but then was hypotensive. Patient was given IV fluids. Patient was started empirically on Rocephin. I do not suspect the patient to be in septic shock at the time of admission Impression & Plan Atrial fibrillation with RVR, Acute dehydration, Urinary tract infection Discharge Plan Visit Data Chief Complaint: Cardiac Assessment ED Provider: Shayan Persaud Discharge Problem: Atrial fibrillation with RVR, Acute dehydration, Urinary tract infection Patient Disposition: Admitted As Inpatient Forms Stand Alone Forms: My [facility] Prescriptions Prescriptions: No Action atorvastatin [Lipitor] 40 mg Tablet 40 mg PO HS sotalol 80 mg Tablet 40 mg PO BID ferrous sulfate [iron] 325 mg (65 mg iron) Tablet 325 mg PO 3XWK Rx Instructions: SUN/SUN/SUN carbidopa-levodopa 25-100 mg Tablet 1 tab PO TID sertraline 50 mg Tablet 50 mg PO QAM cholecalciferol (vitamin D3) [Vitamin D3] 50 mcg (2,000 unit) Tablet 50 mcg PO QAM metformin 500 mg Tablet 500 mg PO QAM levothyroxine [Synthroid] 50 mcg Tablet 50 mcg PO QAM Fleet Enema 19-7 gram/118 mL Enema 197 ml MI DAILY PRN (Reason: Constipation) docusate sodium 100 mg Capsule 100 mg PO BID loratadine [Claritin] 10 mg Tablet 10 mg PO DAILY PRN (Reason: seasonal allergies) protein supplement Liquid See Rx Instructions .ROUTE .COMPLEX Rx Instructions: Drink 1 proheal daily melatonin 10 mg Tablet 10 mg PO HS Probiotic Acidophilus 1.5 mg (250 million cell) Capsule 1,000 mmu cells PO QAM ampicillin 500 mg Capsule 500 mg PO TID Rx Instructions: Start Date 06/10/23 - End Date 06/20/23 Januvia 25 mg Tablet 25 mg PO QAM Referrals Referrals: Manuel Rose MD [Outside Practitioners] -
[2023-06-09 16:35] LABS: Basophils # (auto) 0.03 K/uL (0.00-0.20); Basophils % (auto) 0.3 %; Hematocrit (blood only) 36.3 % (37.0-47.0); Hemoglobin 11.7 g/dl (12.0-16.0); Immature Granulocytes # (auto) 0.06 K/uL (0.01-0.20); Immature Granulocytes % (auto) 0.6 %; Lymphocytes # (auto) 0.85 K/uL (1.20-3.40); Lymphocytes % (auto) 8.5 %; Mean Corpuscular Hemoglobin 29.8 pg (25.0-34.0); Mean Corpuscular Hgb Conc 32.2 g/dL (32.0-36.0); Mean Corpuscular Volume 92.4 fL (80.0-100.0); Mean Platelet Volume 11.2 fL (9.4-12.4); Monocytes # (auto) 0.81 K/uL (0.11-0.59); Monocytes % (auto) 8.1 %; Neutrophils % (auto) 82.5 %; Platelet Count 256 K/uL (130-400); RDW Standard Deviation 54.3 fL (36.4-46.3); Red Blood Count 3.93 M/uL (4.20-5.40); White Blood Count 9.95 K/ul (4.8-10.8)
--- NOTE | 2023-06-09 16:40 | XRay Report ---
SINGLE VIEW CHEST CLINICAL HISTORY: Atypical chest pain. FINDINGS: 2 AP, portable, upright chest radiographs are compared to study dated 11/27/2020 and correla tavo with chest CT dated 06/15/2019. The examination is severely degraded by portable technique and pat ient rotation. The patient's had largely obscures the right apex on one of the images. The heart is enlarged noting atherosclerotic calcification of the thoracic aorta. The pulmonary vasculature is non congested. A right basilar opacity likely corresponds to a known gastric pull-through procedure. Ther e is a left pleural effusion with dependent consolidation. There is no pneumothorax. The skeletal str uctures are osteopenic. There is chronic posttraumatic deformity of the right posterior ribs. Degener ative change is noted in the shoulders and spine. There is chronic deformity of the right proximal hu merus. IMPRESSION: 1. Cardiomegaly without radiographic evidence of congestive failure. 2. There is a left pleural effusion with dependent consolidation. This was also seen on prior studies and may be chronic. Correlate clinically. ACT 112: Negative or not required by law. Electronically signed by: Golden Bello M.D. 06/09/2023 4:37 PM
[2023-06-09] MEDS: SODIUM CHLORIDE 0.9% 1,000 ML IV STA (16:59)
[2023-06-09] MEDS: METOPROLOL TARTRATE 1 MG/ML VIAL IV STA (16:59)
[2023-06-09 17:01] LABS: Partial Thromboplastin Ratio 0.9; Partial Thromboplastin Time 26 Seconds (21-31); Prothrombin Time 11.4 Seconds (9.0-12.0)
[2023-06-09 17:08] LABS: Troponin I High Sensitivity 22.9 pg/ml (0-14)
[2023-06-09 17:11] LABS: Albumin Globulin Ratio 1.1 (0.9-2); Albumin Level 3.6 gm/dl (3.4-5.0); BUN Creatinine Ratio 61.3 (10-20); Bilirubin,Total 0.3 mg/dl (0.2-1.0); Calcium 8.9 mg/dl (8.6-10.3); Creatinine Clr Calc Pharmacy 29.6 ml/min; Est GFR (African American) 56.2 ml/min; Est GFR (Non-African American) 48.5 ml/min; Globulin 3.2 gm/dl (2.5-4.0); Potassium 5.1 mmol/L (3.5-5.1); Total Protein 6.8 gm/dl (6.0-8.3)
[2023-06-09] MEDS: dilTIAZem HCl 5 MG/ML 5 ML VIAL IV STA ×2 (17:15→18:00)
[2023-06-09] MEDS ORDERED: STAT IV Infusion **Titration per Protocol STA (17:55)
[2023-06-09] MEDS: dilTIAZem HCL 125 MG in DEXTROSE 5% 100 ML IV SCH (18:11)
--- NOTE | 2023-06-09 18:14 | History & Physical Report ---
Date of Service June 09, 2023 Assessment & Plan (1) Goals of care, counseling/discussion: Plan: Discussed with his daughters at bedside - patient does not have capacity to make her own medical decisions and has not for some time. They just went through a bad end of life experience with their father and are aware of the limitations and draw backs of aggressive care. They wish her to be DNR/DNI. We discussed vasopressors and ICU admission if she were to decompensate which would involve central and radial lines and they do not wish her to go through that. They are ok with current care including antibiotics and wish to see how she responds. Discussed poor prognosis that she may from this infection which they understand. DNR/DNI, no vasopressors (2) Sepsis: Plan: Meets SIRS criteria with tachypnea and tachycardia (neutrophilia but WBC WNL) - suspected source urinary vs. pneumonia Total 2L fluid bolus given. Avoid aggressive fluids as likely to develop pulmonary edema quickly with her RVR. No pulmonary edema on initial CXR, large left pleural effusion appears chronic. Hypotensive with initial AV bay blocking agents given in the ER support intravascular depletion Cefepime initially given empirically in ER pending further workup Will switch antibiotics to vancomycin + Zosyn for better aspiration pneumonia coverage and MRSA coverage given she has essentially failed amoxicillin (3) Metabolic acidosis with respiratory alkalosis: Plan: ABG showing tachypnea (respiratory alkalosis) compensating for underlying metabolic acidosis - presumably lactic from sepsis as above Suspect this is her intermittent shortness of breath at home as she had further intermittent episodes in the ER not associated with sudden increased heart rate (4) Atrial flutter with rapid ventricular response: Plan: Somewhat appropriate due to sepsis although suspect she will do better if we slow her down slightly - aim 110s Diltiazem caused hypotension in the ER - although notably this was prior to adequate fluid resuscitation but will avoid restarting this overnight Increase sotalol to 40mg PO TID to help with cardioversion Add digoxin load 250mcg IV now then in 6 hours, given limitation of this medication in a. flutter to rate control will only dose twice and defer to team tomorrow to decide if we need to continue this Emergent electrical cardioversion not warranted at this time as BP improved with IV fluids and likely to go right back into a. flutter given underlying sepsis Not on anticoagulation due to prior excessive bleeding Consult cardiology (5) Urinary tract infection: Plan: Recent group B strep per family although I do not have the results of this but she was taking amoxicillin for this. Empirically treat with vancomycin + Zosyn pending blood and urine cultures (6) Pneumonia: Plan: CT with multifocal pneumonia - Bio[employer] PCR negative. 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 Patient is mostly non verbal at baseline (9) Diabetes mellitus, type 2: Plan: No recent HbA1C Insulin 4 unit IV now BSG ACHS/q6h Novolog: --Goal BSG Range: Low 110mg/dL, High 140 mg/dL --Correction Factor: 45 mg/dL/unit no carb coverage --BSGs ACHS if eating, q6h if npo Will defer basal dosing while NPO (10) Left-sided neglect: Plan: At baseline (11) Pleural effusion, left: Plan: This appears to be chronic, no significant pulmonary edema Doubtful re-expansion with thoracentesis and given poor prognosis deferred currently Plan VTE Prophylaxis - heparin 5000 units BID Diet - NPO Disposition - admit to PCU Admission and Anticipated Discharge Date Admission Date: June 09, 2023 History of Present Illness Chief Complaint: Shortness of breath Primary Care Provider: Sarita Francis MD Kassandra Boykin is an 83 year old female with corticobasal syndrome who presents to the ER with shortness of breath. Unable to get any history from patient as mostly non verbal at baseline. They reports a 2 week decline in fatigue and generalized weakness. Diagnosed with a UTI as outpatient with group B strep and was given ampicillin for this. She started having bouts of shortness of breath and difficulty breathing so they gave her oxygen as needed (she has a prescription for PRN 2LPM O2 but baseline is on room air). On one occasion her daughter measured her heart rate and is was fast therefore called her trade manager. She went to her trade manager office on and EKG showed atrial fibrillation (this is a known diagnosis which is paroxysmal and she takes sotalol for this). They started metoprolol succinate without much effect and took labs. Her daughter was told her labs look like she is dehydrated and she was recommended to take plain water. She has baseline dysphagia and requires thickened and pureed foods therefore this is difficult but she has been eating and drinking although notably less the last few days. They were told if not better on Sunday to call back. However due to worsening weakness they decided to bring her to the ER today. No diarrhea, abdominal pain, nausea or vomiting. She is coughing up mucus but this is not unusual for her with chronic dysphagia. She has a known history of a. flutter/fibrillation paroxysmally and on sotalol since 2018. She is currently has 1.5 days left of ampicillin for her UTI. In the ER she was given metoprolol 5mg IV and diltiazem 10mg IV causing hypoten mandi therefore Allergies Allergy/AdvReac Type Severity Reaction Status Date / Time No Known Allergies Allergy Verified 06/09/23 17:08 Home Medications Medication Instructions Recorded Confirmed Type atorvastatin 40 mg tablet (Lipitor) 40 mg PO HS 06/15/19 06/09/23 History carbidopa 25 mg-levodopa 100 mg 1 tab PO TID 06/15/19 06/09/23 History tablet cholecalciferol (vitamin D3) 50 50 mcg PO QAM 06/15/19 06/09/23 History mcg (2,000 unit) tablet (Vitamin D3) ferrous sulfate 325 mg (65 mg 325 mg PO 3XWK 06/15/19 06/09/23 History iron) tablet (iron) sertraline 50 mg tablet 50 mg PO QAM 06/15/19 06/09/23 History sotalol 80 mg tablet 40 mg PO BID 06/15/19 06/09/23 History Lactobacillus acidophilus 250 1,000 mmu cells PO QAM 09/13/22 06/09/23 History million cell capsule (Probiotic Acidophilus) docusate sodium 100 mg capsule 100 mg PO BID 09/13/22 06/09/23 History levothyroxine 50 mcg tablet 50 mcg PO QAM 09/13/22 06/09/23 History (Synthroid) loratadine 10 mg tablet (Claritin) 10 mg PO DAILY PRN seasonal 09/13/22 06/09/23 History allergies melatonin 10 mg tablet 10 mg PO HS 09/13/22 06/09/23 History metformin 500 mg tablet 500 mg PO QAM 09/13/22 06/09/23 History protein supplement See Rx Instructions .Route .COMPLEX 09/13/22 06/09/23 History sodium phosphates 19 gram-7 197 ml [place] DAILY PRN Constipation 09/13/22 06/09/23 History gram/118 mL enema (Fleet Enema) ampicillin 500 mg capsule 500 mg PO TID 06/09/23 06/09/23 History sitagliptin phosphate 25 mg tablet 25 mg PO QAM 06/09/23 06/09/23 History (Januvia) Past Med/Surg History Medical History (Updated 06/10/23 @ 08:14 by Jose Carlos Card MD) Encounter for pre-operative examination Anemia Raynauds syndrome On home oxygen therapy only prn 2lpm via n/c. 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 "levels run good though" Hypothyroidism Diabetes mellitus, type 2 NIDDM History of shingles 1994 in the left eye. 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 Silver ([facility], Neurology). denies hallucinations and agitation. mainly nonverbal; will randomly answer appropriately History of esophageal cancer (1992) surgical intervention and chemo/radiation History of stomach cancer (1992) surgical intervention and chemo/radiation NSTEMI (non-ST elevated myocardial infarction) 2018. Afib 2018 - controlled with medication. Follows with Dr. Wharton - no longer on anticoagulants. Surgical History History of esophagogastroduodenoscopy (EGD) History of colonoscopy History of heart artery stent x1 stent in LAD 12/13/2017 at [facility] History of cardiac cath 2018 at [facility] H/O esophagectomy (~1992) with a gastric pull up ([facility] August) H/O: hysterectomy Family History Other No family history of adverse response to anesthesia Social History Smoking Status: Never smoker Second Hand Exposure: No; Do You Dip or Chew Tobacco: No; Hx Alcohol Use: No Hx Substance Use: No Preferred Language: Romanian Communication Ability: Impaired Communication Ability Comment: mainly nonverbal, will answer appropriately at times. Coding Clerks Supervisor Required: No Beliefs That Will Affect Care: None Current Living Situation: Family Current Living Situation Comment: lives with daughterAbbie Other Information That Helps Us Care for You: No Feels Safe at Home: Yes Safety Concerns: Feels Safe At This Time Assistive Devices: Denture - Upper and Oxygen - Continuous Review of Systems Review of Systems: Unobtainable due to cognitive status Physical Exam Constitutional: + acute distress (respiratory) and + fra il appearing; + not well nourished Eyes: + anicteric sclerae; normal pupil size ENMT: Mouth: + dry oral mucous membranes Respiratory: + labored breathing and + uses accessory muscles; expiratory phase not prolonged Auscultation: + diminished lung sounds (left base) and + rhonchi (anteriorly); no crackles and no wheezes Cardiovascular: Rate/Rhythm: regular rhythm and + tachycardic Heart Sounds: no murmur Extremities: normal capillary refill; no calf tenderness and no pedal edema Gastrointestinal (Abdomen): Inspection/Auscultation: abdomen normal to inspection; abdomen not distended Percussion/Palpation: abdomen soft; abdomen nontender and abdomen not rigid Skin: no rashes, warm and dry (no areas of cellulitis noted) Neurologic: awake; + does not move all extremities (unable to co-operate for neuro exam, baseline left sided neglect) and not confused Psychiatric: Orientation: alert; + not oriented x 3 Results & Data Results & Data Vital Signs (Past 12 Hours) Vital Signs Temp Pulse Resp BP Pulse Ox O2 Del Method O2 Flow Rate 06/09/23 17:30 140 H 30 H 100 06/09/23 17:18 136 H 30 H 99 06/09/23 17:18 91/72 L 06/09/23 17:00 141 H 28 H 95 06/09/23 17:00 108/77 06/09/23 16:59 144 H 108/77 06/09/23 16:30 139 H 30 H 95 06/09/23 16:27 140 H 06/09/23 16:12 142 H 21 06/09/23 16:08 36.8 C 135 H 20 114/98 94 Nasal Cannula [address] Abdomen and Pelvis Without Intravenous Contrast CLINICAL HISTORY: Reason for exam: UTI sepsis ?ureterolithiasis. TECHNIQUE: Axial computed tomography images of the abdomen and pelvis without intravenous contrast. Automated exposure control was utilized for the study. A dose lowering technique was utilized adhering to the principles of ALARA. COMPARISON: No relevant prior studies available. FINDINGS: Lung bases: Airspace consolidations at the lung bases, concerning for multilobar pneumonia. Moderate LEFT and small RIGHT pleural effusions. Large diaphragmatic hernia which contains majority of the stomach in a retrocardiac position. Heart: Cardiomegaly. ABDOMEN: Liver: Unremarkable. Gallbladder and bile ducts: Unremarkable. No calcified stones. No ductal dilation. Pancreas: Unremarkable. No ductal dilation. Spleen: Unremarkable. No splenomegaly. Adrenals: Unremarkable. No mass. Kidneys and ureters: Atrophy of LEFT kidney. No obstructing stones. No hydronephrosis. Stomach and bowel: Unremarkable. No obstruction. No mucosal thickening. PELVIS: Appendix: No findings to suggest acute appendicitis. Bladder: Denise catheter terminates in the urinary bladder. No stones. Reproductive: Unremarkable as visualized. ABDOMEN and PELVIS: Intraperitoneal space: Unremarkable. No free air. No significant fluid collection. Bones/joints: Degenerative changes of the spine. No acute fracture. No dislocation. Soft tissues: Unremarkable. Vasculature: Atherosclerotic changes of the aorta. No abdominal aortic aneurysm. Lymph nodes: Unremarkable. No enlarged lymph nodes. IMPRESSION: 1. Airspace consolidations at the lung bases, concerning for multilobar pneumonia. Moderate LEFT and small RIGHT pleural effusions. Large diaphragmatic hernia which contains majority of the stomach in a retrocardiac position. 2. Denise catheter terminates in the urinary bladder. 3. Atrophy of LEFT kidney. Medications Administered ER Medications Given: Normal saline 1L bolus Metoprolol 5mg IV Diltiazem 10mg IV ECG Rate (beats per minute): 138 Rhythm: atrial flutter Findings: no acute ischemic change Comparison ECG Date: from (Jun 15, 2019) Change: the following changes noted (Atrial flutter replaced sinus rhythm, TWI less evident in anterolateral leads) Code Status & VTE Plan Code Status DNR/DNI VTE Prophylaxis Plan VTE Prophylaxis will be ordered: Yes Critical Care Time Critical Care Time: Yes Total Critical Care Time: 40 PG Care Time/CCT Total # of Minutes Spent Total Time Spent with Patient: Total time spent is greater than 50% in coordination of care (as documented) at patient's floor/unit and/or counseling patient: Critical Care Time: Yes Total Critical Care Time: 40 Coding Level of Care Code 14273 INT INP/OBS CARE 3/75MIN Diagnoses Goals of care, counseling/discussion Z71.89 Sepsis A41.9 Metabolic acidosis with respiratory alkalosis E87.20; E87.3 Atrial flutter with rapid ventricular response I48.92 Urinary tract infection N39.0 Pneumonia J18.9 Dysphagia R13.10 Corticobasal syndrome G31.85 Diabetes mellitus, type 2 E11.9 Left-sided neglect R41.4 Pleural effusion, left J90 Additional Codes Critical Care Time - Critical Care Time: Yes ([id number])
[2023-06-09] MEDS ORDERED: NovoLIN-R INSULIN PER UNIT CHARGE IV STA (18:21)
[2023-06-09] MEDS: SODIUM CHLORIDE 0.9% 500 ML IV ONE (18:35)
[2023-06-09] MEDS: CEFEPIME 2,000 MG in SYRINGE 0 ML IV STA (19:02)
[2023-06-09] MEDS: cefTRIAXone SODIUM 2,000 MG/50 ML BAG IV STA (19:04)
[2023-06-09 19:07] LABS: Appearance Urine Turbid (Clear); Bacteria Urine Automated 4+ (Negative); Bilirubin Urine Negative (Negative); Blood Urine 1+ (Negative); Color Urine Dark Yellow; Glucose Urine UA Negative (Negative); Ketones Urine Negative (Negative); Leukocyte Esterase Urine 3+ (Negative); Nitrite Urine Positive (Negative); Protein Urine 1+ (Negative); RBC Urine Automated 0-4 /hpf (0-4); Specific Gravity Urine 1.026 (1.000-1.030); Urobilinogen Urine Negative (Negative); WBC Urine Automated >30 /hpf (0-5)
[2023-06-09 19:08] LABS: Magnesium 1.9 mg/dl (1.7-2.4)
[2023-06-09 19:25] LABS: Troponin I High Sensitivity 25.8 pg/ml (0-14)
[2023-06-09] MEDS: SODIUM CHLORIDE 0.9% 1,000 ML IV ONE (19:34)
[2023-06-09 19:35] LABS: Base Excess VBG -8.7 mEq/L; HCO3 VBG 19 mmol/L; Oxygen Saturation VBG < 60.0 %; PCO2 VBG 48 mmHg (38-50); PO2 VBG < 20 mmHg; Thyroid Stimulating Hormone 2.726 uIu/ml (0.300-4.500); pH VBG 7.21 (7.36-7.41)
[2023-06-09] MEDS: INSULIN HUMAN REGULAR PER UNIT 4 UNITS in SYRINGE 3.96 ML IV ONE (19:39)
[2023-06-09 19:51] LABS: iSTAT Arterial Blood Gas HCO3 11 meg/L (19-24); iSTAT Arterial Blood Gas pCO2 19 mmHg (35-46); iSTAT Arterial Blood Gas pH 7.37 (7.35-7.45); iSTAT Arterial Blood Gas pO2 82 mmHg (80-95); iSTAT Carbon Dioxide 12 mmol/L (24-31); iSTAT Hematocrit 34 % (37-47); iSTAT Hemoglobin 11.6 g/dl (12.0-16.0); iSTAT Potassium 5.4 mmol/L (3.3-5.0); iSTAT Sodium 135 mmol/L (135-144)
[2023-06-09 19:52] LABS: Adenovirus PCR Not Detected (NotDetected); Bordetella parapertussis PCR Not Detected (NotDetected); Bordetella pertussis PCR Not Detected (NotDetected); Chlamydia pneumoniae PCR Not Detected (NotDetected); Coronavirus 229E PCR Not Detected (NotDetected); Coronavirus CoV-2 (COVID19)PCR Not Detected (NotDetected); Coronavirus HKU1 PCR Not Detected (NotDetected); Coronavirus NL63 PCR Not Detected (NotDetected); Coronavirus OC43PCR Not Detected (NotDetected); Human Metapneumovirus PCR Not Detected (NotDetected); Influenza A PCR Not Detected (NotDetected); Influenza B PCR Not Detected (NotDetected); Mycoplasma pneumoniae PCR Not Detected (NotDetected); Parainfluenza Virus 1 PCR Not Detected (NotDetected); Parainfluenza Virus 2 PCR Not Detected (NotDetected); Parainfluenza Virus 3 PCR Not Detected (NotDetected); Parainfluenza Virus 4 PCR Not Detected (NotDetected); Respiratory Syncytial VirusPCR Not Detected (NotDetected); Rhinovirus/Enterovirus PCR Not Detected (NotDetected)
[2023-06-09] MEDS ORDERED: GLUCOSE 40% GEL 15 GM TUBE PO PRN (21:29)
[2023-06-09] MEDS ORDERED: GLUCAGON FOR INJ 1 MG VIAL SQ PRN (21:29)
[2023-06-09] MEDS ORDERED: GLUCOSE 10 TAB/TUBE PO PRN (21:29)
[2023-06-09] MEDS ORDERED: CARBOHYDRATES FOR HYPOGLYCEMIA PO PRN (21:29)
[2023-06-09] MEDS ORDERED: DEXTROSE 50% 50 ML SYRINGE IV PRN (21:29)
--- NOTE | 2023-06-09 21:45 | CT Scan Report ---
Exam(s): CT ABDOMEN + PELVIS Without Contrast EXAM: CT Abdomen and Pelvis Without Intravenous Contrast CLINICAL HISTORY: Reason for exam: UTI sepsis ?ureterolithiasis. TECHNIQUE: Axial computed tomography images of the abdomen and pelvis without intravenous contrast. Automated exposure control was utilized for the study. A dose lowering technique was utilized adhering to the principles of ALARA. COMPARISON: No relevant prior studies available. FINDINGS: Lung bases: Airspace consolidations at the lung bases, concerning for multilobar pneumonia. Moderate LEFT and small RIGHT pleural effusions. Large diaphragmatic hernia which contains majority of the stomach in a retrocardiac position. Heart: Cardiomegaly. ABDOMEN: Liver: Unremarkable. Gallbladder and bile ducts: Unremarkable. No calcified stones. No ductal dilation. Pancreas: Unremarkable. No ductal dilation. Spleen: Unremarkable. No splenomegaly. Adrenals: Unremarkable. No mass. Kidneys and ureters: Atrophy of LEFT kidney. No obstructing stones. No hydronephrosis. Stomach and bowel: Unremarkable. No obstruction. No mucosal thickening. PELVIS: Appendix: No findings to suggest acute appendicitis. Bladder: Denise catheter terminates in the urinary bladder. No stones. Reproductive: Unremarkable as visualized. ABDOMEN and PELVIS: Intraperitoneal space: Unremarkable. No free air. No significant fluid collection. Bones/joints: Degenerative changes of the spine. No acute fracture. No dislocation. Soft tissues: Unremarkable. Vasculature: Atherosclerotic changes of the aorta. No abdominal aortic aneurysm. Lymph nodes: Unremarkable. No enlarged lymph nodes. IMPRESSION: 1. Airspace consolidations at the lung bases, concerning for multilobar pneumonia. Moderate LEFT and small RIGHT pleural effusions. Large diaphragmatic hernia which contains majority of the stomach in a retrocardiac position. 2. Denise catheter terminates in the urinary bladder. 3. Atrophy of LEFT kidney. Electronically signed by: Elton Garcia MD 06/09/23 21:44 PM
[2023-06-09] MEDS ORDERED: VANCOMYCIN CONSULT ACTIVE PRN (21:56)
[2023-06-09] MEDS: DIGOXIN 250 MCG in SYRINGE 9 ML IV ONE (21:58)
[2023-06-09] MEDS ORDERED: MEROPENEM 500 MG in SYRINGE 0 ML IV SCH (22:15)
[2023-06-09] MEDS: SOTALOL HCL 80 MG TAB PO SCH (22:29)
[2023-06-09] MEDS: MELATONIN 3 MG TAB PO SCH (22:30)
[2023-06-09] MEDS: DOCUSATE SODIUM 100 MG CAP PO SCH (22:31)
[2023-06-09] MEDS: CARBIDOPA/LEVODOPA 25/100MG TAB PO SCH (22:31)
[2023-06-09] MEDS: VANCOMYCIN HCL 1,000 MG in SODIUM CHLORIDE 0.9% 250 ML IV ONE (22:32)
[2023-06-09] MEDS: INSULIN ASPART PER UNIT CHARGE SC SCH (22:44)
[2023-06-09] MEDS: PIPERACILLIN/TAZOBACTAM 4.5 GM in DEXTROSE 5% MINI-B 100 ML IV ONE (23:02)
[2023-06-09] MEDS: MAGNESIUM SULFATE / D5W 1 GM/100 ML BAG IV ONE (23:03)
[2023-06-09 23:04] LABS: BUN Creatinine Ratio 63.8 (10-20); Creatinine Clr Calc Pharmacy 35.3 ml/min; Est GFR (African American) 56.9 ml/min; Est GFR (Non-African American) 49.1 ml/min; Potassium 5.3 mmol/L (3.5-5.1)
[2023-06-09] MEDS: HEPARIN SOD 5,000 UNIT/0.5 ML VIAL SQ SCH (23:06)
[2023-06-09] MEDS: MEROPENEM 1,000 MG in SYRINGE 0 ML IV SCH (23:14)
--- NOTE | 2023-06-10 00:09 | Communication Note ---
Date of Service: June 09, 2023 Repeat vital signs show improved BP 137/84. Unfortunately despite no longer having hypotension or hypoxia her lactic acidosis has increased and she is no longer compensating well enough and her bicarb has decreased. Respiratory rate has decreased. This doesn't appear to be a fluid issue given her BP has improved therefore no further fluid bolus warranted at this time. Very small possibility that this was a delayed effect from her hypotension earlier which given her BP has now improved she may rebound from but the much more likely scenario is she fatigues -> has less respiratory compensation for her metabolic acidosis -> increased arrhythmias -> ultimately cardiac arrest. Discussed poor prognostic sign with her two daughters at bedside - we will continue with treatment and repeat labs in the morning at the current time. If having runs of ventricular tachycardia or significant increased PVC burden overnight recommend switching to full comfort care, if family feel she is becoming more distressed then they will contact nurse to make comfort care, if labs in the morning look worse would suggest transition to comfort care.
[2023-06-10] MEDS: LACTATED RINGER'S 1,000 ML IV SCH (01:29)
[2023-06-10] MEDS: DIGOXIN 250 MCG in SYRINGE 9 ML IV ONE ×2 (03:54→06:26)
[2023-06-10] MEDS: PIPERACILLIN/TAZOBACTAM 4.5 GM in DEXTROSE 5% MINI-B 100 ML IV SCH (03:55)
[2023-06-10] MEDS: LEVOTHYROXINE SODIUM 50 MCG TABLET PO SCH (05:40)
[2023-06-10] MEDS: VANCOMYCIN HCL 1,000 MG in SODIUM CHLORIDE 0.9% 250 ML IV SCH (05:40)
[2023-06-10 06:17] LABS: Base Excess VBG -5.8 mEq/L; HCO3 VBG 20 mmol/L; Oxygen Saturation VBG < 60.0 %; PCO2 VBG 37 mmHg (38-50); PO2 VBG 34 mmHg; pH VBG 7.33 (7.36-7.41)
[2023-06-10 06:33] LABS: Basophils # (auto) 0.01 K/uL (0.00-0.20); Basophils % (auto) 0.1 %; Hematocrit (blood only) 35.7 % (37.0-47.0); Hemoglobin 11.6 g/dl (12.0-16.0); Immature Granulocytes # (auto) 0.04 K/uL (0.01-0.20); Immature Granulocytes % (auto) 0.5 %; Lymphocytes # (auto) 0.82 K/uL (1.20-3.40); Lymphocytes % (auto) 10.8 %; Mean Corpuscular Hemoglobin 29.7 pg (25.0-34.0); Mean Corpuscular Hgb Conc 32.5 g/dL (32.0-36.0); Mean Corpuscular Volume 91.5 fL (80.0-100.0); Mean Platelet Volume 11.2 fL (9.4-12.4); Monocytes # (auto) 0.54 K/uL (0.11-0.59); Monocytes % (auto) 7.1 %; Neutrophils # (auto) 6.16 K/uL (1.40-6.50); Neutrophils % (auto) 81.5 %; Nucleated RBC # (auto) 0.04 K/uL (0.00-0.12); Nucleated RBC % (auto) 0.5 %; Platelet Count 243 K/uL (130-400); RDW Coefficient of Variation 16.3 % (11.5-14.5); RDW Standard Deviation 54.4 fL (36.4-46.3); White Blood Count 7.57 K/ul (4.8-10.8)
[2023-06-10 06:47] LABS: Albumin Globulin Ratio 1.1 (0.9-2); Albumin Level 3.2 gm/dl (3.4-5.0); BUN Creatinine Ratio 64.6 (10-20); Bilirubin,Total 0.5 mg/dl (0.2-1.0); C Reactive Protein 1.97 mg/dl (0-0.5); Calcium 8.8 mg/dl (8.6-10.3); Creatinine Clr Calc Pharmacy 39.7 ml/min; Est GFR (African American) 63.4 ml/min; Est GFR (Non-African American) 54.7 ml/min; Globulin 2.9 gm/dl (2.5-4.0); Magnesium 2.1 mg/dl (1.7-2.4); Potassium 5.2 mmol/L (3.5-5.1); Total Protein 6.1 gm/dl (6.0-8.3)
[2023-06-10 06:49] LABS: INR 1.1 (0.9-1.1); Prothrombin Time 11.9 Seconds (9.0-12.0)
--- NOTE | 2023-06-10 07:07 | Electrocardiogram Report ---
Test Reason : Blood Pressure : / mmHG Vent. Rate : 138 BPM Atrial Rate : 276 BPM P-R Int : 000 ms QRS Dur : 072 ms QT Int : 284 ms P-R-T Axes : 000 047 244 degrees QTc Int : 430 ms Atrial flutter with variable A-V block Nonspecific ST and T wave abnormality Abnormal ECG When compared with ECG of 15-JUN-2019 22:18, Atrial flutter has replaced Sinus rhythm Vent. rate has increased BY 76 BPM T wave inversion less evident in Anterolateral leads Confirmed by Didier Dunaway ([id number]) on 06/10/2023 7:07:41 AM Referred By: REFERRED SELF Confirmed By:Zachary Dunaway
[2023-06-10] MEDS ORDERED: Nursing to Pharmacy Communication SCH ×2 (07:15→17:30)
[2023-06-10 07:25] LABS: Estimated Average Glucose 180 mg/dl; Hemoglobin A1C 7.9 % (4.5-5.6)
[2023-06-10] MEDS: INSULIN ASPART PER UNIT CHARGE SC SCH ×2 (07:35→18:04)
[2023-06-10] MEDS: SERTRALINE HCL 50 MG TABLET PO SCH (07:52)
[2023-06-10] MEDS ORDERED: STAT IV Infusion **Titration per Protocol STA (07:54)
[2023-06-10] MEDS: dilTIAZem HCL 125 MG in DEXTROSE 5% 100 ML IV SCH (08:16)
[2023-06-10] MEDS: FUROSEMIDE 40 MG/4 ML VIAL IV SCH (08:17)
[2023-06-10] MEDS: dilTIAZem HCl 5 MG/ML 5 ML VIAL IV STA (08:17)
--- NOTE | 2023-06-10 08:38 | XRay Report ---
XR chest 1V portable CLINICAL HISTORY: Hypoxia. COMPARISON STUDY: Chest CT June 15, 2019. Chest radiograph the 2023. FINDINGS: No pneumothorax is present. There are moderate bilateral pleural effusions with associated bibasilar opacities. Mild cardiomegaly. Pulmonary edema is present. Postoperative findings consistent with esophagectomy with gastric pull-up are better depicted by CT. Old proximal right humeral deform ity. IMPRESSION: Cardiomegaly with interstitial pulmonary edema and moderate bilateral pleural effusions w ith associated bibasilar opacities. ACT 112: Negative or not required by law. Electronically signed by: Ramo Montalvo M.D. 06/10/2023 8:36 AM
[2023-06-10] MEDS: METOPROLOL TARTRATE 25 MG TAB PO SCH (10:01)
--- NOTE | 2023-06-10 10:12 | Hospitalist Progress Note ---
Date of Service June 10, 2023 Assessment & Plan (1) Sepsis: Plan: Ruled out. I believe her symptoms can all be attributed to uncontrolled atrial fibrillation and CHF. Gram-negative rods isolated in the urine. Continue Zosyn for now. Discontinue vancomycin. (2) Atrial fibrillation with RVR: Plan: Recently switched from sotalol to metoprolol. Diltiazem drip for now. She is not a candidate for systemic anticoagulation. Await cardiac echo result (3) Congestive heart failure (CHF): Plan: Acute. With bilateral pleural effusions. Parenteral Lasix diuresis. Denise catheter in place to monitor accurate output. Await cardiac echo results. (4) Acute respiratory failure with hypoxia: Plan: Oxygen per nasal cannula to maintain saturation greater than 90%. Wean off as tolerated (5) Metabolic acidosis with respiratory alkalosis: Plan: Present on admission. Treat uncontrolled atrial fibrillation and CHF. Serial labs (6) Urinary tract infection: Plan: Gram-negative's isolated. Continue Zosyn. Discontinue vancomycin. Tailor antibiotics further when pathogens are identified along with sensitivities (7) Pneumonia: Plan: CT with bilateral infiltrates. Procalcitonin however is normal. These findings could be entirely due to CHF and effusions. No fever. No sputum production. 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 Patient is mostly non verbal at baseline (9) Diabetes mellitus, type 2: Plan: Sliding scale coverage. Avoid basal insulin to prevent hypoglycemia which is the biggest threat at this time. ADA diet Plan To be determined. DNR/DNI is in place. The family is aware that she may not survive this acute illness Admission and Anticipated Discharge Date Admission Date: June 09, 2023 Subjective The patient is chronically nonverbal. No distress. Family is at the bedside. This appears to be acute congestive heart failure with bilateral pleural effusions producing acute hypoxic respiratory failure. Urine is growing gram- negative rods. Vancomycin discontinued. Continue Zosyn for now. Will tailor antibiotics according to pathogen and sensitivities. Cardiac echo is pending. She is now on nasal cannula. Denise catheter is in place and she is now on IV Lasix. Blood pressure is now stable. Diltiazem drip has been restarted for heart rate control. Free T3 level is slightly low but free T4 level is normal. No intervention at this time. Review of Systems 2 Review of Systems: The patient is nonverbal and cannot answer any questions regarding review of system Physical Exam 2 Physical Exam: General-lethargic. Nonverbal. No fever HEENT-head atraumatic and normocephalic, pupils equal and reactive to light, extraocular muscles intact Neck-no lymphadenopathy or thyromegaly, trachea midline Chest-difficult to examine due to kyphosis. Diminished breath sounds bilaterally. Dull at both bases. No wheezing. Cardiac-rapid irregular heart rate consistent with atrial fibrillation. Normal S1 and S2 Abdomen-normal bowel sound, no hepatosplenomegaly Extremities-no edema Neuro-no appreciable focal deficits. Psych-cannot assess at this Results & Data Results & Data Vital Signs (Past 12 Hours) Vital Signs Temp Pulse Pulse Resp BP BP Pulse Ox 06/10/23 08:29 36.8 C 133 H 121/90 97 06/10/23 06:26 160 H 06/10/23 06:14 37.0 C 160 H 22 125/86 06/10/23 03:54 153 H 06/10/23 02:47 36.5 C 59 L 19 126/76 06/10/23 00:51 138 H 06/09/23 22:56 142 H O2 Del Method O2 Flow Rate 06/10/23 08:29 Oxymask 2.5 06/10/23 06:26 06/10/23 06:14 06/10/23 03:54 06/10/23 02:47 06/10/23 00:51 06/09/23 22:56 Laboratory Results 06/10/23 05:48 06/10/23 05:48 PG Care Time/CCT Total # of Minutes Spent Total Time Spent with Patient: Total time spent is greater than 50% in coordination of care (as documented) at patient's floor/unit and/or counseling patient: Coding Level of Care Code 93852 SUB INP/OBS CARE 3/50MIN Diagnoses Sepsis A41.9 Atrial fibrillation with RVR I48.91 Congestive heart failure (CHF) I50.9 Acute respiratory failure with hypoxia J96.01 Metabolic acidosis with respiratory alkalosis E87.20; E87.3 Urinary tract infection N39.0 Pneumonia J18.9 Corticobasal syndrome G31.85 Diabetes mellitus, type 2 E11.9
--- NOTE | 2023-06-10 12:07 | Cardiology Consultation ---
Date of Consultation June 10, 2023 Assessment & Plan (1) Atrial fibrillation with RVR: (2) Acute respiratory failure with hypoxia: (3) Pleural effusion, left: (4) Mitral regurgitation: Plan 1. Shortness of breath, hypoxia: Complicated case. Initially dyspnea could have been related to AFib with rapid ventricular rates. She is also known to have primary pulmonary disease and chronic left pleural effusion with some basilar consolidation. It is very possible that while her hemodynamics improved she did develop some element of pulmonary vascular congestion with volume administration yesterday. Over the course of the evening she subsequently underwent diuresis with improvement in her breathing. However, she does appear to be intravascularly depleted and I would caution against more aggressive diuresis. I would agree with the initial assessment that perhaps a metabolic acidosis caused some dyspnea due to attempts at respiratory compensation. This appears to be improving. 2. Atrial fibrillation with rapid ventricular response: She has history of atrial fibrillation that is fairly remote. She has been maintained on low-dose sotalol without a documented recurrence. It is very possible that a recurrence of her atrial fibrillation and resultant rapid ventricular rates precipitated her breathing difficulty. She did not appear to be a good candidate for immediate cardioversion as her hemodynamics improved and she has not been on systemic anticoagulation. Use of amiodarone would be ideal, but this is less desirable in the setting of continued sotalol use. Our initial strategy was increasing the sotalol. Overnight this was discontinued and rate control strategy was adopted. This seems reasonable. Some mild bradycardia at baseline, and will need to monitor her for conversion. However, given the desire to avoid significant interventions, I think adopting a rate control strategy in the mcc may be her best option. Anticoagulation continues to be deferred. 3. Mitral regurgitation: Mild. 4. Coronary disease: Remote history of NSTEMI. Patient is nonverbal so symptoms of coronary disease cannot be accurately determined. However, biomarker elevation quite minimal relative to her symptoms not suggestive of recent acute coronary syndrome. He continue aggressive secondary prevention with high-dose atorvastatin. Presumably not on anti-platelet therapy due to history of conjunctival hemorrhage and bruising. History of Present Illness Reason for Consultation: Atrial fibrillation Requesting Physician: Stephie Attending Physician: El Orozco MD History of Present Illness The patient is an 83-year-old woman with a history of advanced parkinsonism, coronary disease status post NSTEMI in 2016, and paroxysmal atrial fibrillation was brought to the emergency room by her family for worsening shortness of breath. The patient is nonverbal in the entire history was obtained from the patient's family, nursing staff and physician staff. It seems that last Sunday the patient can have symptoms of shortness of breath. These were intermittent fairly mild at 1st but became progressive over the course of several days. Laboratory work was done on an outpatient basis last week and suggests an element of dehydration. The patient's family was asked to increase her water intake. She was noted to have elevated heart rate presumably due to return of atrial fibrillation. At the time of her hospital evaluation she was noted to be significantly tachycardia. Attempt at rate control with metoprolol and diltiazem resulted an element of hypotension. Patient was thought to have a urinary tract infection and an element of distributive shock. She was administered saline with improvement in her hemodynamics. This morning the patient was alert and eating breakfast. Her family was present and stated that her symptoms had improved significantly over the course of the past 12 hours. She could not provide any history. Allergies Allergy/AdvReac Type Severity Reaction Status Date / Time No Known Allergies Allergy Verified 06/09/23 17:08 Home Medications Medication Instructions Recorded Confirmed Type atorvastatin 40 mg tablet (Lipitor) 40 mg PO HS 06/15/19 06/09/23 History carbidopa 25 mg-levodopa 100 mg 1 tab PO TID 06/15/19 06/09/23 History tablet cholecalciferol (vitamin D3) 50 50 mcg PO QAM 06/15/19 06/09/23 History mcg (2,000 unit) tablet (Vitamin D3) ferrous sulfate 325 mg (65 mg 325 mg PO 3XWK 06/15/19 06/09/23 History iron) tablet (iron) sertraline 50 mg tablet 50 mg PO QAM 06/15/19 06/09/23 History sotalol 80 mg tablet 40 mg PO BID 06/15/19 06/09/23 History Lactobacillus acidophilus 250 1,000 mmu cells PO QAM 09/13/22 06/09/23 History million cell capsule (Probiotic Acidophilus) docusate sodium 100 mg capsule 100 mg PO BID 09/13/22 06/09/23 History levothyroxine 50 mcg tablet 50 mcg PO QAM 09/13/22 06/09/23 History (Synthroid) loratadine 10 mg tablet (Claritin) 10 mg PO DAILY PRN seasonal 09/13/22 06/09/23 History allergies melatonin 10 mg tablet 10 mg PO HS 09/13/22 06/09/23 History metformin 500 mg tablet 500 mg PO QAM 09/13/22 06/09/23 History protein supplement See Rx Instructions .Route .COMPLEX 09/13/22 06/09/23 History sodium phosphates 19 gram-7 197 ml VA DAILY PRN Constipation 09/13/22 06/09/23 History gram/118 mL enema (Fleet Enema) ampicillin 500 mg capsule 500 mg PO TID 06/09/23 06/09/23 History sitagliptin phosphate 25 mg tablet 25 mg PO QAM 06/09/23 06/09/23 History (Januvia) Patient History Medical History (Updated 06/10/23 @ 12:26 by Didier Dunaway MD) Encounter for pre-operative examination Anemia Raynauds syndrome On home oxygen therapy only prn 2lpm via n/c. 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 "levels run good though" Hypothyroidism Diabetes mellitus, type 2 NIDDM History of shingles 1994 in the left eye. 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 Silver ([facility], Neurology). denies hallucinations and agitation. mainly nonverbal; will randomly answer appropriately History of esophageal cancer (1992) surgical intervention and chemo/radiation History of stomach cancer (1992) surgical intervention and chemo/radiation NSTEMI (non-ST elevated myocardial infarction) 2017. Afib 2017 - controlled with medication. Follows with Dr. Wharton - no longer on anticoagulants. Surgical History History of esophagogastroduodenoscopy (EGD) History of colonoscopy History of heart artery stent x1 stent in LAD 12/13/2017 at [facility] History of cardiac cath 2018 at [facility] H/O esophagectomy (~1992) with a gastric pull up ([facility] August) H/O: hysterectomy Family History Other No family history of adverse response to anesthesia Social History Smoking Status: Never smoker Second Hand Exposure: No; Do You Dip or Chew Tobacco: No; Hx Alcohol Use: No Hx Substance Use: No Preferred Language: Tanzanian Communication Ability: Impaired Communication Ability Comment: mainly nonverbal, will answer appropriately at times. Stitcher Special Machine Required: No Beliefs That Will Affect Care: None Current Living Situation: Family Current Living Situation Comment: lives with daughterAbbie Other Information That Helps Us Care for You: No Feels Safe at Home: Yes Safety Concerns: Feels Safe At This Time Assistive Devices: Denture - Upper, Mechanical Lift, Oxygen - Continuous and Wheelchair Review of Systems Review of Systems: Unobtainable due to cognitive status Physical Exam Physical Exam: She is alert. Comfortable. Nonverbal. HEENT: Sclerae are anicteric. Pupils are equal and reactive to light and accommodation. Extraocular movements were intact. Neuro: Cranial nerves intact Lungs: Lungs appear clear. Good air movement. No expiratory wheezing. Normal respiratory effort. Cardiac: The rhythm is irregular and the rate was fast. S1 and S2 were normal. There are no murmurs on examination. The PMI was not markedly displaced on palpation. Extremities: Patient has bilateral radial pulses that are equal in intensity. There is no evidence cyanosis or clubbing. There was no evidence of significant peripheral edema bilaterally. Skin: There are no rashes noted on examination today. Results & Data Vital Signs (Past 12 Hours) Vital Signs Temp Pulse Pulse Resp BP BP Pulse Ox 06/10/23 11:26 36.7 C 106 H 118/86 98 06/10/23 10:00 148 H 16 97/68 L 97 06/10/23 08:29 36.8 C 133 H 121/90 97 06/10/23 06:26 160 H 06/10/23 06:14 37.0 C 160 H 22 125/86 06/10/23 03:54 153 H 06/10/23 02:47 36.5 C 59 L 19 126/76 06/10/23 00:51 138 H O2 Del Method O2 Flow Rate 06/10/23 11:26 Nasal Cannula 2.5 06/10/23 10:00 Nasal Cannula 2 06/10/23 08:29 Oxymask 2.5 06/10/23 06:26 06/10/23 06:14 06/10/23 03:54 06/10/23 02:47 06/10/23 00:51 Laboratory Results Abnormal Lab Results 06/09/23 06/09/23 06/09/23 14:17 17:12 18:45 WBC 9.95 RBC 3.93 L Hgb 11.7 L POC Hgb Hct 36.3 L POC Hct MCV 92.4 MCH 29.8 MCHC 32.2 RDW Std Deviation 54.3 H RDW Coeff of Gabby 16.0 H Plt Count 256 MPV 11.2 Immature Gran % (Auto) 0.6 Neut % (Auto) 82.5 Lymph % (Auto) 8.5 Jones % (Auto) 8.1 Eos % (Auto) 0.0 Baso % (Auto) 0.3 Neut # (Auto) 8.20 H Lymph # (Auto) 0.85 L Jones # (Auto) 0.81 H Eos # (Auto) 0.00 Baso # (Auto) 0.03 Immature Gran # (Auto) 0.06 Absolute Nucleated RBC Nucleated RBC % (auto) ESR PT 11.4 INR 1.0 APTT 26 PTT Ratio 0.9 POC pH POC pCO2 POC pO2 POC HCO3 POC Total CO2 POC Base Excess ABG pH ABG pCO2 ABG pO2 ABG HCO3 POC ABG O2 Sat ABG O2 Saturation ABG Base Excess Krunal Test VBG pH VBG pCO2 VBG pO2 VBG HCO3 VBG O2 Saturation VBG Base Excess Barometric Pressure Oxygen Given POC Sodium Sodium 133 L POC Potassium Potassium 5.1 Chloride 103 Carbon Dioxide 21 Anion Gap 9 BUN 65 H Creatinine 1.06 Est Cr Clr Drug Dosing 29.6 Est GFR ( Amer) 56.2 Est GFR (Non-Af Amer) 48.5 BUN/Creatinine Ratio 61.3 H Glucose 320 H* POC Glucose Estimat Average Glucose Hemoglobin A1c Lactate 3.5 H* Calcium 8.9 Magnesium 1.9 Total Bilirubin 0.3 AST 58 H ALT 27 Alkaline Phosphatase 98 Total Creatine Kinase Troponin I High Sens 22.9 H C-Reactive Protein B-Natriuretic Peptide Total Protein 6.8 Albumin 3.6 Globulin 3.2 Albumin/Globulin Ratio 1.1 Lipase 3 L Procalcitonin 0.11 TSH Free T4 Free T3 Urine Color Dark Yellow Urine Appearance Turbid A Urine pH 5.0 Ur Specific Condon 1.026 Urine Protein 1+ H Urine Glucose (UA) Negative Urine Ketones Negative Urine Blood 1+ H Urine Nitrite Positive A Urine Bilirubin Negative Urine Urobilinogen Negative Ur Leukocyte Esterase 3+ H Urine WBC (Auto) >30 H Urine RBC (Auto) 0-4 U Hyaline Cast (Auto) 1-5 U Epithel Cells (Auto) 5-10 H Urine Bacteria (Auto) 4+ H Urine Yeast Not Reportable Digoxin Adenovirus (PCR) Not Detected B. pertussis DNA (PCR) Not Detected B.parapertussis DNA PCR Not Detected C. pneumoniae DNA (PCR) Not Detected Coronavirus OC43 (PCR) Not Detected Coronavirus HKU1 (PCR) Not Detected Coronavirus 229E (PCR) Not Detected SARS-CoV-2 (PCR) Not Detected Coronavirus NL63 (PCR) Not Detected Human Metapneumovir PCR Not Detected Influenza Type A (PCR) Not Detected Influenza Type B (PCR) Not Detected M. pneumoniae (PCR) Not Detected Parainfluenza 1 (PCR) Not Detected Parainfluenza 2 (PCR) Not Detected Parainfluenza 3 (PCR) Not Detected Parainfluenza 4 (PCR) Not Detected RSV (PCR) Not Detected Entero/Rhino (PCR) Not Detected 06/09/23 06/09/23 06/09/23 18:47 19:38 20:17 WBC RBC Hgb POC Hgb 11.6 L Hct POC Hct 34 L MCV MCH MCHC RDW Std Deviation RDW Coeff of Gabby Plt Count MPV Immature Gran % (Auto) Neut % (Auto) Lymph % (Auto) Jones % (Auto) Eos % (Auto) Baso % (Auto) Neut # (Auto) Lymph # (Auto) Jones # (Auto) Eos # (Auto) Baso # (Auto) Immature Gran # (Auto) Absolute Nucleated RBC Nucleated RBC % (auto) ESR PT INR APTT PTT Ratio POC pH 7.37 POC pCO2 19 L POC pO2 82 POC HCO3 11 L POC Total CO2 12 L POC Base Excess -14.0 L ABG pH Cancelled ABG pCO2 Cancelled ABG pO2 Cancelled ABG HCO3 Cancelled POC ABG O2 Sat 96.0 H ABG O2 Saturation Cancelled ABG Base Excess Cancelled Krunal Test Cancelled VBG pH 7.21 L VBG pCO2 48 VBG pO2 < 20 VBG HCO3 19 VBG O2 Saturation < 60.0 VBG Base Excess -8.7 Barometric Pressure Cancelled Oxygen Given Cancelled POC Sodium 135 Sodium POC Potassium 5.4 H Potassium Chloride Carbon Dioxide Anion Gap BUN Creatinine Est Cr Clr Drug Dosing Est GFR ( Amer) Est GFR (Non-Af Amer) BUN/Creatinine Ratio Glucose POC Glucose 229 H Estimat Average Glucose Hemoglobin A1c Lactate Calcium Magnesium Total Bilirubin AST ALT Alkaline Phosphatase Total Creatine Kinase Troponin I High Sens 25.8 H C-Reactive Protein B-Natriuretic Peptide Total Protein Albumin Globulin Albumin/Globulin Ratio Lipase Procalcitonin TSH 2.726 Free T4 Free T3 Urine Color Urine Appearance Urine pH Ur Specific Condon Urine Protein Urine Glucose (UA) Urine Ketones Urine Blood Urine Nitrite Urine Bilirubin Urine Urobilinogen Ur Leukocyte Esterase Urine WBC (Auto) Urine RBC (Auto) U Hyaline Cast (Auto) U Epithel Cells (Auto) Urine Bacteria (Auto) Urine Yeast Digoxin Adenovirus (PCR) B. pertussis DNA (PCR) B.parapertussis DNA PCR C. pneumoniae DNA (PCR) Coronavirus OC43 (PCR) Coronavirus HKU1 (PCR) Coronavirus 229E (PCR) SARS-CoV-2 (PCR) Coronavirus NL63 (PCR) Human Metapneumovir PCR Influenza Type A (PCR) Influenza Type B (PCR) M. pneumoniae (PCR) Parainfluenza 1 (PCR) Parainfluenza 2 (PCR) Parainfluenza 3 (PCR) Parainfluenza 4 (PCR) RSV (PCR) Entero/Rhino (PCR) 06/09/23 06/09/23 06/10/23 21:50 22:29 05:48 WBC 7.57 RBC 3.90 L Hgb 11.6 L POC Hgb Hct 35.7 L POC Hct MCV 91.5 MCH 29.7 MCHC 32.5 RDW Std Deviation 54.4 H RDW Coeff of Gabby 16.3 H Plt Count 243 MPV 11.2 Immature Gran % (Auto) 0.5 Neut % (Auto) 81.5 Lymph % (Auto) 10.8 Jones % (Auto) 7.1 Eos % (Auto) 0.0 Baso % (Auto) 0.1 Neut # (Auto) 6.16 Lymph # (Auto) 0.82 L Jones # (Auto) 0.54 Eos # (Auto) 0.00 Baso # (Auto) 0.01 Immature Gran # (Auto) 0.04 Absolute Nucleated RBC 0.04 Nucleated RBC % (auto) 0.5 ESR 45 H PT 11.9 INR 1.1 APTT PTT Ratio POC pH POC pCO2 POC pO2 POC HCO3 POC Total CO2 POC Base Excess ABG pH ABG pCO2 ABG pO2 ABG HCO3 POC ABG O2 Sat ABG O2 Saturation ABG Base Excess Krunal Test VBG pH 7.33 L VBG pCO2 37 L VBG pO2 34 VBG HCO3 20 VBG O2 Saturation < 60.0 VBG Base Excess -5.8 Barometric Pressure Oxygen Given POC Sodium Sodium 135 L 136 POC Potassium Potassium 5.3 H 5.2 H Chloride 105 107 Carbon Dioxide 15 L 19 L Anion Gap 15 H 10 BUN 67 H 62 H Creatinine 1.05 0.96 Est Cr Clr Drug Dosing 35.3 39.7 Est GFR ( Amer) 56.9 63.4 Est GFR (Non-Af Amer) 49.1 54.7 BUN/Creatinine Ratio 63.8 H 64.6 H Glucose 237 H 215 H POC Glucose 210 H Estimat Average Glucose 180 Hemoglobin A1c 7.9 H Lactate 7.8 H* 2.5 H* Calcium 9.0 8.8 Magnesium 2.1 Total Bilirubin 0.5 AST 60 H ALT 20 Alkaline Phosphatase 87 Total Creatine Kinase 54 Troponin I High Sens C-Reactive Protein 1.97 H B-Natriuretic Peptide 2651 H Total Protein 6.1 Albumin 3.2 L Globulin 2.9 Albumin/Globulin Ratio 1.1 Lipase Procalcitonin TSH Free T4 Free T3 Urine Color Urine Appearance Urine pH Ur Specific Condon Urine Protein Urine Glucose (UA) Urine Ketones Urine Blood Urine Nitrite Urine Bilirubin Urine Urobilinogen Ur Leukocyte Esterase Urine WBC (Auto) Urine RBC (Auto) U Hyaline Cast (Auto) U Epithel Cells (Auto) Urine Bacteria (Auto) Urine Yeast Digoxin Adenovirus (PCR) B. pertussis DNA (PCR) B.parapertussis DNA PCR C. pneumoniae DNA (PCR) Coronavirus OC43 (PCR) Coronavirus HKU1 (PCR) Coronavirus 229E (PCR) SARS-CoV-2 (PCR) Coronavirus NL63 (PCR) Human Metapneumovir PCR Influenza Type A (PCR) Influenza Type B (PCR) M. pneumoniae (PCR) Parainfluenza 1 (PCR) Parainfluenza 2 (PCR) Parainfluenza 3 (PCR) Parainfluenza 4 (PCR) RSV (PCR) Entero/Rhino (PCR) 06/10/23 06/10/23 06/10/23 06:21 08:17 11:43 WBC RBC Hgb POC Hgb Hct POC Hct MCV MCH MCHC RDW Std Deviation RDW Coeff of Gabby Plt Count MPV Immature Gran % (Auto) Neut % (Auto) Lymph % (Auto) Jones % (Auto) Eos % (Auto) Baso % (Auto) Neut # (Auto) Lymph # (Auto) Jones # (Auto) Eos # (Auto) Baso # (Auto) Immature Gran # (Auto) Absolute Nucleated RBC Nucleated RBC % (auto) ESR PT INR APTT PTT Ratio POC pH POC pCO2 POC pO2 POC HCO3 POC Total CO2 POC Base Excess ABG pH ABG pCO2 ABG pO2 ABG HCO3 POC ABG O2 Sat ABG O2 Saturation ABG Base Excess Krunal Test VBG pH VBG pCO2 VBG pO2 VBG HCO3 VBG O2 Saturation VBG Base Excess Barometric Pressure Oxygen Given POC Sodium Sodium POC Potassium Potassium Chloride Carbon Dioxide Anion Gap BUN Creatinine Est Cr Clr Drug Dosing Est GFR ( Amer) Est GFR (Non-Af Amer) BUN/Creatinine Ratio Glucose POC Glucose 210 H 204 H Estimat Average Glucose Hemoglobin A1c Lactate Calcium Magnesium Total Bilirubin AST ALT Alkaline Phosphatase Total Creatine Kinase Troponin I High Sens C-Reactive Protein B-Natriuretic Peptide Total Protein Albumin Globulin Albumin/Globulin Ratio Lipase Procalcitonin TSH Free T4 1.21 Free T3 2.07 L Urine Color Urine Appearance Urine pH Ur Specific Condon Urine Protein Urine Glucose (UA) Urine Ketones Urine Blood Urine Nitrite Urine Bilirubin Urine Urobilinogen Ur Leukocyte Esterase Urine WBC (Auto) Urine RBC (Auto) U Hyaline Cast (Auto) U Epithel Cells (Auto) Urine Bacteria (Auto) Urine Yeast Digoxin 4.8 H* Adenovirus (PCR) B. pertussis DNA (PCR) B.parapertussis DNA PCR C. pneumoniae DNA (PCR) Coronavirus OC43 (PCR) Coronavirus HKU1 (PCR) Coronavirus 229E (PCR) SARS-CoV-2 (PCR) Coronavirus NL63 (PCR) Human Metapneumovir PCR Influenza Type A (PCR) Influenza Type B (PCR) M. pneumoniae (PCR) Parainfluenza 1 (PCR) Parainfluenza 2 (PCR) Parainfluenza 3 (PCR) Parainfluenza 4 (PCR) RSV (PCR) Entero/Rhino (PCR) Diagnostic Findings Chest x-ray demonstrated chronic left pleural effusion. Second chest or demonstrated evidence of bilateral pleural effusions with pulmonary vascular congestion, chest CT demonstrated bilateral basilar consolidations of the lungs. PG Care Time/CCT Total # of Minutes Spent Total Time Spent with Patient: Total time spent is greater than 50% in coordination of care (as documented) at patient's floor/unit and/or counseling patient: Coding Level of Care Code 73026 INT INP/OBS CARE 3/75MIN Diagnoses Atrial fibrillation with RVR I48.91 Acute respiratory failure with hypoxia J96.01 Pleural effusion, left J90 Mitral regurgitation I34.0
--- NOTE | 2023-06-10 13:53 | XCELERA ---
[id number]
[2023-06-11 08:27] LABS: Basophils # (auto) 0.03 K/uL (0.00-0.20); Basophils % (auto) 0.3 %; Eosinophils # (auto) 0.03 K/uL (0.00-0.50); Eosinophils % (auto) 0.3 %; Immature Granulocytes # (auto) 0.07 K/uL (0.01-0.20); Immature Granulocytes % (auto) 0.7 %; Lymphocytes # (auto) 0.69 K/uL (1.20-3.40); Lymphocytes % (auto) 6.7 %; Mean Corpuscular Hemoglobin 30.4 pg (25.0-34.0); Mean Corpuscular Hgb Conc 34.3 g/dL (32.0-36.0); Mean Corpuscular Volume 88.6 fL (80.0-100.0); Mean Platelet Volume 11.2 fL (9.4-12.4); Monocytes # (auto) 0.97 K/uL (0.11-0.59); Monocytes % (auto) 9.4 %; Neutrophils # (auto) 8.52 K/uL (1.40-6.50); Neutrophils % (auto) 82.6 %; Nucleated RBC # (auto) 0.17 K/uL (0.00-0.12); Nucleated RBC % (auto) 1.6 %; Platelet Count 226 K/uL (130-400); RDW Standard Deviation 51.5 fL (36.4-46.3); Red Blood Count 3.95 M/uL (4.20-5.40); White Blood Count 10.31 K/ul (4.8-10.8)
--- NOTE | 2023-06-11 08:43 | Cardiology Progress Note ---
Date of Service June 11, 2023 Assessment & Plan (1) Atrial fibrillation with RVR: Plan Impression: 1. Ren-UW-sictkcbbh myocardial infarction in 2018. 2. Atrial fibrillation 3. Chronic use of sotalol 40 mg b.i.d. 4. 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 5. Advanced Parkinson's disease. 7. Anemia. 8. Diabetes. 9. Negative MRA for aneurysms in 05/2019 with an MRI suggesting small-vessel disease. 10. Echocardiogram this admission - EF 60%, no wma 11. Diastolic heart failure Ms. Boykin's heart rate is better controlled than at admission but still in atrial flutter with rates ranging into the 1teens. She is too obtunded today for pills, so will continue with diltiazem drip for now. She had previously been on sotalol. We can hold off on resuming for now. It will take 3 days to reload and she would need to continue q6 month office visits for EKGs which were becoming more difficult for her family to manage. If she becomes able to take po again we can switch to oral diltiazem or increase her metoprolol. She was placed on digoxin earlier in the admission but this has been discontinued due to an elevated dig level of 4.8. Alternatively, amiodarone could be considered but will hold off for now. She is not anticoagulated due to her frailty and fall risk. Certainly, she would be high risk for stroke with chemical or electrical cardioversion. She is not a candidate for a FELICITAS. She is in heart failure with a bnp of 2651. She has a chronic left pleural effusion but now has them bilaterally. Unfortunately she looks intravascularly dry with a soft blood pressure and further diuretics will be held for now. Overall, her prognosis is poor. It may be helpful to have palliative care on board. Admission and Anticipated Discharge Date Admission Date: June 09, 2023 Subjective Ms. Boykin cannot provide history as she is aphasic. She awoke a bit when I was examining her but is lethargic. Physical Exam Constitutional: + ill appearing Respiratory: normal respiratory effort, lungs clear to auscultation Cardiovascular: Rate/Rhythm: + abnormal rate and + abnormal rhythm Heart Sounds: normal S1 and normal S2 Extremities: no edema Skin: no rashes, warm and dry Neurologic: + obtunded Psychiatric: non verbal Results & Data Vital Signs (Past 12 Hours) Vital Signs Temp Pulse Pulse Resp BP Pulse Ox O2 Del Method 06/11/23 02:30 36.7 C 65 20 96/68 L 95 Nasal Cannula 06/10/23 23:21 101 H 06/10/23 22:22 36.8 C 97 H 18 110/66 94 Nasal Cannula O2 Flow Rate 06/11/23 02:30 2.5 06/10/23 23:21 06/10/23 22:22 2.5
[2023-06-11 08:55] LABS: Calcium 9.4 mg/dl (8.6-10.3); Creatinine Clr Calc Pharmacy 29.2 ml/min; Est GFR (African American) 46.1 ml/min; Est GFR (Non-African American) 39.7 ml/min; Potassium 3.8 mmol/L (3.5-5.1)
[2023-06-11] MEDS ORDERED: STAT IV Infusion **Titration per Protocol STA ×2 (09:41→19:52)
[2023-06-11] MEDS ORDERED: dilTIAZem HCL 125 MG in DEXTROSE 5% 100 ML IV SCH (09:45)
[2023-06-11] MEDS: POTASSIUM CHLORIDE 10 MEQ TABCR PO SCH (12:27)
[2023-06-11] MEDS: dilTIAZem HCL 30 MG TAB PO SCH (12:28)
[2023-06-11] MEDS ORDERED: dilTIAZem HCl 60 MG TAB PO SCH (13:00)
--- NOTE | 2023-06-11 15:41 | Hospitalist Progress Note ---
Date of Service June 11, 2023 Assessment & Plan (1) Sepsis: Plan: Ruled out. I believe her symptoms can all be attributed to uncontrolled atrial fibrillation and CHF. Gram-negative rods isolated in the urine. Continue Zosyn for now. Discontinue vancomycin. (2) Atrial fibrillation with RVR: Plan: Recently switched from sotalol to metoprolol. Diltiazem drip for now. She is not a candidate for systemic anticoagulation. Await cardiac echo result (3) Congestive heart failure (CHF): Plan: Acute diastolic. Cardiac echo reveals left ventricular hypertrophy with normal ejection fraction. She does have some evidence of cor pulmonale which is probably chronic. With bilateral pleural effusions. Responding nicely to parenteral Lasix diuresis. Denise catheter in place to monitor accurate output. (4) Acute respiratory failure with hypoxia: Plan: Oxygen per nasal cannula to maintain saturation greater than 90%. Wean off as tolerated. Improved (5) Metabolic acidosis with respiratory alkalosis: Plan: Present on admission. Treat uncontrolled atrial fibrillation and CHF. Serial labs (6) Urinary tract infection: Plan: E. coli and another gram-negative sally isolated. Will tailor antibiotics according to sensitivities. Continue Zosyn for now, day 3. Vancomycin has been discontinued. (7) Pneumonia: Plan: CT with bilateral infiltrates. Procalcitonin however is normal. These findings could be entirely due to CHF and effusions. No fever. No sputum production. 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 Patient is mostly non verbal at baseline (9) Diabetes mellitus, type 2: Plan: Sliding scale coverage. Avoid basal insulin to prevent hypoglycemia which is the biggest threat at this time. ADA diet Plan Both daughters are adamantly opposed to placement. She eventually will go home under their care as before. Hopefully later this week Admission and Anticipated Discharge Date Admission Date: June 09, 2023 Subjective Awake in no distress. She is nonverbal which is chronic. Daughters are at the bedside. Overall, she has improved. Diltiazem drip switched to oral dosing now that atrial fibrillation is much better controlled. Will repeat portable chest x-ray again tomorrow, June 12. Oral potassium replacement ordered since this is now trending downward with diuresis. The daughters adamantly refused to consider placement and they will be taking the patient home hopefully later this week sometime. Oxygen requirements are down to 2-1/2 L. 2 gram-negative's isolated in the urine. 1 is E. coli and the other is yet to be identified. Continue Zosyn for now, day 3. Cardiac echo reveals LVH with normal ejection fraction and evidence of cor pulmonale. Review of Systems 2 Review of Systems: The patient is nonverbal and cannot answer any questions regarding review of system Physical Exam 2 Physical Exam: General-awake and alert at the time of my rounds. Nonverbal. No fever HEENT-head atraumatic and normocephalic, pupils equal and reactive to light, extraocular muscles intact Neck-no lymphadenopathy or thyromegaly, trachea midline Chest-difficult to examine due to severe kyphosis. Diminished breath sounds bilaterally. Dullness at both bases. No wheezing. Cardiac-rapid irregular heart rate consistent with atrial fibrillation. Normal S1 and S2 Abdomen-normal bowel sound, no hepatosplenomegaly Extremities-no edema Neuro-no appreciable focal deficits. Psych-cannot assess Results & Data Results & Data Vital Signs (Past 12 Hours) Vital Signs Temp Pulse Pulse Resp BP Pulse Ox O2 Del Method 06/11/23 15:13 36.2 C L 80 18 115/75 96 Nasal Cannula 06/11/23 11:54 36.7 C 73 19 122/77 98 Nasal Cannula 06/11/23 08:00 36.8 C 82 14 116/73 Nasal Cannula 06/11/23 07:00 104 H O2 Flow Rate 06/11/23 15:13 2 06/11/23 11:54 06/11/23 08:00 2 06/11/23 07:00 Laboratory Results 06/11/23 07:52 06/11/23 07:52 PG Care Time/CCT Total # of Minutes Spent Total Time Spent with Patient: Total time spent is greater than 50% in coordination of care (as documented) at patient's floor/unit and/or counseling patient: Coding Level of Care Code 73994 SUB INP/OBS CARE 3/50MIN Diagnoses Sepsis A41.9 Atrial fibrillation with RVR I48.91 Congestive heart failure (CHF) I50.9 Acute respiratory failure with hypoxia J96.01 Metabolic acidosis with respiratory alkalosis E87.20; E87.3 Urinary tract infection N39.0 Pneumonia J18.9 Corticobasal syndrome G31.85 Diabetes mellitus, type 2 E11.9
[2023-06-11] MEDS: dilTIAZem HCL 125 MG in DEXTROSE 5% 100 ML IV SCH (20:42)
--- NOTE | 2023-06-12 07:15 | XRay Report ---
XR chest 1V portable HISTORY: Congestive heart failure. Shortness of breath. COMPARISON: Chest 06/10/2023. FINDINGS: No pneumothorax. The heart remains enlarged. Bilateral pleural effusions and bibasilar dens ities persist. Mild interstitial pulmonary edema is again noted. There are low lung volumes. No acute fractures identified. IMPRESSION: No significant change in the cardiomegaly, pulmonary edema, pleural effusions, and bibasilar densitie s. ACT 112: Negative or not required by law. Electronically signed by: Tenzin Zayas M.D. 06/12/2023 7:13 AM
[2023-06-12 08:15] LABS: Basophils # (auto) 0.01 K/uL (0.00-0.20); Basophils % (auto) 0.1 %; Eosinophils # (auto) 0.03 K/uL (0.00-0.50); Eosinophils % (auto) 0.3 %; Hematocrit (blood only) 36.9 % (37.0-47.0); Hemoglobin 12.1 g/dl (12.0-16.0); Immature Granulocytes # (auto) 0.06 K/uL (0.01-0.20); Immature Granulocytes % (auto) 0.6 %; Lymphocytes # (auto) 0.69 K/uL (1.20-3.40); Lymphocytes % (auto) 7.4 %; Mean Corpuscular Hemoglobin 29.9 pg (25.0-34.0); Mean Corpuscular Hgb Conc 32.8 g/dL (32.0-36.0); Mean Corpuscular Volume 91.1 fL (80.0-100.0); Mean Platelet Volume 11.4 fL (9.4-12.4); Monocytes % (auto) 7.5 %; Neutrophils # (auto) 7.83 K/uL (1.40-6.50); Neutrophils % (auto) 84.1 %; Nucleated RBC # (auto) 0.13 K/uL (0.00-0.12); Nucleated RBC % (auto) 1.4 %; Platelet Count 248 K/uL (130-400); RDW Coefficient of Variation 16.5 % (11.5-14.5); RDW Standard Deviation 54.1 fL (36.4-46.3); Red Blood Count 4.05 M/uL (4.20-5.40); White Blood Count 9.32 K/ul (4.8-10.8)
[2023-06-12 08:17] LABS: BUN Creatinine Ratio 48.9 (10-20); Calcium 9.3 mg/dl (8.6-10.3); Creatinine Clr Calc Pharmacy 25.6 ml/min; Est GFR (African American) 42.7 ml/min; Est GFR (Non-African American) 36.9 ml/min
[2023-06-12] MEDS ORDERED: AMIODARONE IV BOLUS & DRIP IV STA (10:49)
[2023-06-12] MEDS ORDERED: 0.2 MICRON FILTER SET 1 EACH IV STA (10:49)
[2023-06-12] MEDS ORDERED: STAT IV Infusion **Titration per Protocol STA (10:49)
--- NOTE | 2023-06-12 10:52 | Cardiology Progress Note ---
Date of Service June 12, 2023 Assessment & Plan (1) Atrial fibrillation with RVR: (2) Congestive heart failure (CHF): Plan Impression: 1. Ing-[id number] myocardial infarction in 2018. 2. Atrial fibrillation 3. Chronic use of sotalol 40 mg b.i.d. 4. 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 5. Advanced Parkinson's disease. 7. Anemia. 8. Diabetes. 9. Negative MRA for aneurysms in 05/2019 with an MRI suggesting small-vessel disease. 10. Echocardiogram this admission - EF 60%, no wma 11. Diastolic heart failure Ms. Boykin's heart rate went into the 160s with change to oral diltiazem last evening. She is now back on the dilt drip. Her chest Xray is unchanged this morning and she continues to be in heart failure. I had a long discussion with her daughters at bedside concerning Ms. Boykin's prognosis and options. We have not been successful with a rate control strategy. Her heart rates remain high and she remains in heart failure. Digoxin is not an option to resume as her dig level went to 4 when started on admission and her kidney function has only decreased since then. At this point, we would recommend amiodarone. Sotalol is not a good option to restart either given her kidney fu nction. Due to her frailty and bleeding risk, she has been off of anticoagulation so there is a risk of stroke with chemical cardioversion from amiodarone. The alternative would be to continue a rate control strategy but this would not likely get her out of heart failure. Her kidney function looks very dry and more diuretics will be avoided. She likely needs her atrial kick and much decreased r ate to help better perfuse. The daughters understand the risks and benefits of amiodarone vs continuing a rate control strategy and are in agreement with starting the amiodarone and IV heparin. We will start a heparin drip as well. We could consider sending her home with a short 2-4 week course of anticoagulation if she converts to protect from post cardioversion stroke risk. Overall, her prognosis is poor. I have placed a consult for palliative care. I discussed her care with the hospitalist. Admission and Anticipated Discharge Date Admission Date: June 09, 2023 Subjective Ms. Boykin is present with her three daughters at bedside. She continues to have labile heart rates. Yesterday she was taken off of the dilt drip and given po with the result that her heart rate was into the 160s. She was placed back on the drip. Her blood pressure is holding up but low side of normal. Heart rates 80s to 140s in a flutter. Review of Systems Review of Systems: unable to provide Physical Exam Constitutional: + ill appearing Respiratory: normal respiratory effort, lungs clear to auscultation Cardiovascular: Rate/Rhythm: + abnormal rate and + abnormal rhythm Heart Sounds: normal S1 and normal S2 Extremities: no edema Skin: no rashes, warm and dry Neurologic: awake left hand contracture Results & Data Vital Signs (Past 12 Hours) Vital Signs Temp Pulse Pulse Resp BP BP BP 06/12/23 08:15 107 H 06/12/23 07:10 36.3 C L 74 20 108/65 06/12/23 04:18 107 H 06/12/23 04:04 36.3 C L 55 L 18 101/58 L 06/12/23 01:43 104 H 98/57 L 06/12/23 00:11 152 H 95/65 L Pulse Ox O2 Del Method O2 Flow Rate 06/12/23 08:15 06/12/23 07:10 97 Nasal Cannula 06/12/23 04:18 06/12/23 04:04 98 Nasal Cannula 2 06/12/23 01:43 06/12/23 00:11
[2023-06-12] MEDS: AMIODARONE / D5W 150 MG/100 ML BAG IV STA (11:16)
[2023-06-12] MEDS: AMIODARONE / D5W 360 MG/200 ML BAG IV ONE (11:32)
[2023-06-12 12:23] LABS: Basophils # (auto) 0.01 K/uL (0.00-0.20); Basophils % (auto) 0.1 %; Eosinophils # (auto) 0.02 K/uL (0.00-0.50); Eosinophils % (auto) 0.2 %; Hematocrit (blood only) 35.5 % (37.0-47.0); Hemoglobin 11.9 g/dl (12.0-16.0); Immature Granulocytes # (auto) 0.07 K/uL (0.01-0.20); Immature Granulocytes % (auto) 0.7 %; Lymphocytes # (auto) 0.67 K/uL (1.20-3.40); Lymphocytes % (auto) 6.7 %; Mean Corpuscular Hemoglobin 30.3 pg (25.0-34.0); Mean Corpuscular Hgb Conc 33.5 g/dL (32.0-36.0); Mean Corpuscular Volume 90.3 fL (80.0-100.0); Mean Platelet Volume 11.7 fL (9.4-12.4); Monocytes # (auto) 0.58 K/uL (0.11-0.59); Monocytes % (auto) 5.8 %; Neutrophils # (auto) 8.64 K/uL (1.40-6.50); Neutrophils % (auto) 86.5 %; Nucleated RBC # (auto) 0.12 K/uL (0.00-0.12); Nucleated RBC % (auto) 1.2 %; Platelet Count 229 K/uL (130-400); RDW Coefficient of Variation 16.6 % (11.5-14.5); Red Blood Count 3.93 M/uL (4.20-5.40); White Blood Count 9.99 K/ul (4.8-10.8)
[2023-06-12 12:29] LABS: Partial Thromboplastin Time 27 Seconds (21-31); Prothrombin Time 11.1 Seconds (9.0-12.0)
[2023-06-12] MEDS: HEPARIN SODIUM/DEXTROSE 25,000 UNITS/500 ML BAG IV SCH (12:37)
[2023-06-12] MEDS: Heparin IV Adult Wt-Based Low-Dose *NO* INITIAL Bolus Protocol IV STA (13:39)
--- NOTE | 2023-06-12 13:55 | Palliative Care Consultation ---
Date of Consultation June 12, 2023 Assessment & Plan (1) Weakness generalized: (2) Dyspnea and respiratory abnormalities: (3) Discussion about advance care planning held with family member: A face to face 40 min ACP discussion was held with pt dtr and son in law at bedside. With their consent and voluntary participation we discussed the medical issues, complication and implications and overall prognosis. 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 We discussed that hospice and pall med are very commonly conflated as one and the same due to continued/persistent lack of education/awareness in the healthcare communities. We spoke about her needs for at home care and dtr shared she has asked for Home health bc SNF is not something they would accept. She states they will never place pt in a [facility]. I shared with them information about hospice as a added layer of support for her in home care: We discussed the goals of hospice as a patient service and the goals of care; we discussed EOL trajectories and transitions vannesa the emotional impact of realizing mortality as a concrete reality from prior abstract considerations. Pt was reassured that no matter where they are along this trajectory, they are not alone - their medical team will remain by their side through their journey. Discussed the pros/cons of accepting help when especially weakened and distressed by pain-which would also help provide relief/decrease caregiver burden/strain. I provided education about the hospice benefit: an interdisciplinary program offered by nurses, nurses aides, social workers, chaplains and a medical education coordinator for patients with a terminal condition and a life expectancy of less than 6 months. This is covered by Medicare at 100%/no out of pocket expense to patient and all meds/supplies needed by patient for the reason they are on hospice are paid for/covered by hospice. The goal is assure quality of life of the patient in their home setting (home, mcc, inpatient hospice setting) by providing symptoms management, psychosocial and spiritual support. However, they cannot offer 24 hours care and if the family is unable to provide that care, they will have to consider personal care with out of pocket cost vs. mcc placement. We discussed the goals of hospice as a patient service and the goals of care; we discussed EOL trajectories and transitions vannesa the emotional impact of realizing mortality as a concrete reality from prior abstract considerations. They were reassured that no matter where they are along this trajectory, they are not alone - their medical team will remain by their side through their journey. Discussed the pros/cons of accepting help when especially weakened and distressed by pain-which would also help provide relief/decrease caregiver burden/strain. For now, Dtr did not feel additional help at home was needed and she doesnt like a lot of people coming in and out of her home, adding she can do everything pt needs. At this time, she would like disease directed therapy and she declines palliative med engagement (states pt has no symptom mgt needs) and also declined hospice. She said they have a private caregiver who is a retired TUFT MACHINE OPERATOR that helps care for pt at their home. She says they want pt to have PT and see if she can get stronger. Dtr was unwilling to explore the what if that cant happen perspective. I offered OP clinic but she declined and also said they dont use portal so she didnt want telemed option either. She would not answer me when I asked her what her goals for mom are at this point other than to tell me her father recently and she doesnt want mom dying now bc she feels she should have another parent around for a while more. Dtr's ability to engage in an ACP/GOC discussion was limited by her complicated/protracted bereavement and grief over loss of her father. She is unable to contend with the issues of her mother's likely very limited prognosis and mortality. She feels as long as medical options are being offered then that means things can be fixed. She may not be able to transition her thought process to focus more on EOL care options until she hears patient is at a terminal stated of HF and it is time to focus on comfort. She did not want to explore potential considerations of what-if those meds did not help or pt worsens. We did discuss the natural trajectory of progressive chronic cardiac illness and the changes pt with HF experience. I reviewed specifically changes to expect as heart failure patients near the end of their lives, with attention to: patients may feel increasingly breathless both during activity and at rest, persistent coughing or wheezing/sometimes productive of white or pink mucus and can be worse at night or when lying down; sometimes more physical pain may be present that can often be relieved by non pharmacological remedies such as PT, massage, etc., additionally cognitive impairments may worsen and as such impair the patient's ability to be interactive with their loved ones - this can sometimes get better with improved volume status but it is unlikely to resolve. We spoke about how end-of-life care in patients with heart failure is an additive process, whereby therapies to treat symptoms not alleviated by guideline-based medical therapy are integrated into the care of these individuals. Once traditional medical therapies and nonpharmacologic therapies have been exhausted, low-dose opioids are generally felt to be first-line adjuvant therapy to treat dyspnea. Sometimes, providers may be uncomfortable with utilization of more potent opiates, which is why collaboration with hospice at the m[facility] will be useful. Finally, we discussed that as a patient transitions to the end of life with HF, there is so much more to do as far as reducing symptom burden and improving QOL - which we as providers can best address via a thoughtful ACP as we have discussed in place. (4) Palliative care by specialist: Met with pt family at bedside: dtr and son in law. 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 Provided overview of Palliative Medicine, a subspecialty that provides specialized medical care for people living with a serious illness by offering a focus on quality of life. Palliative Medicine is often conflated with hospice: I advised patient/family that Palliative and hospice can be partners but we are not the same. It is important to understand the difference so that we may be informed, and not afraid. Palliative Medicine works to improve QOL through reduction of symptom burden/more control over their illness, for both the patient and family. Palliative medicine clinicians are board certified, specially-trained and another member of the patient's medical care team. We often provide an extra layer of support because our care is based on the needs of the patient, not the prognosis; as such, it's appropriate at any age/advancing stage of a serious illness and can be provided along with curative treatment. Palliative Medicine clinicians are also trained in advanced communication methodologies, to facilitate complex discussions about advanced illness planning, which are needed to help assure that the treatment choices match the patient's goals, aka delivering Goal Concordant care. Finally, we discussed that hospice is a visiting nurse service that focuses on care delivered at the very end of life for patients with terminal illness, with life expectancy less than 6 month. (5) Encounter for hospice care discussion: See #3 above (6) Atrial fibrillation with RVR: (7) Mitral regurgitation: (8) Congestive heart failure (CHF): Plan ACP discussion as noted above, extensive Dtr is SDM. She decline palliative med collaboration and follow up. She is not interested in hospice. There may be issues with a complex grief from losing her father and how this affects considerations about mother's prognosis. For now I will sign off. I am available to re engage as needed/desired; I provided dtr with my contact information. Thank you for allowing us to participate in the ongoing care of this patient. Please don't hesitate to call or page with any additional concerns. Dr. Lisette Vallecillo DNP Director, Palliative Care History of Present Illness Reason for Consultation: heart failure, aphasia Attending Physician: Deepika Eugene MD History of Present Illness progressive cad, heart failure, aspiration rate control has been a struggle overall prognosis is poor cardiology started amiodarone and heparin today dtr and son in law at bedside. 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 She states her sisters are also involved from time to time. at time of my visit pt was sleeping and family did not want her disturbed. she awoke intermittently but briefly before drifting back asleep PMH: 1. Mih-SG-szyeqctqy myocardial infarction in 2018. 2. Atrial fibrillation 3. Chronic use of sotalol 40 mg b.i.d. 4. 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 5. Advanced Parkinson's disease. 7. Anemia. 8. Diabetes. 9. Negative MRA for aneurysms in 05/2019 with an MRI suggesting small-vessel disease. 10. Echocardiogram this admission - EF 60%, no wma 11. Diastolic heart failure Allergies Allergy/AdvReac Type Severity Reaction Status Date / Time No Known Allergies Allergy Verified 06/09/23 17:08 Home Medications Medication Instructions Recorded Confirmed Type atorvastatin 40 mg tablet (Lipitor) 40 mg PO HS 06/15/19 06/09/23 History carbidopa 25 mg-levodopa 100 mg 1 tab PO TID 06/15/19 06/09/23 History tablet cholecalciferol (vitamin D3) 50 50 mcg PO QAM 06/15/19 06/09/23 History mcg (2,000 unit) tablet (Vitamin D3) ferrous sulfate 325 mg (65 mg 325 mg PO 3XWK 06/15/19 06/09/23 History iron) tablet (iron) sertraline 50 mg tablet 50 mg PO QAM 06/15/19 06/09/23 History sotalol 80 mg tablet 40 mg PO BID 06/15/19 06/09/23 History Lactobacillus acidophilus 250 1,000 mmu cells PO QAM 09/13/22 06/09/23 History million cell capsule (Probiotic Acidophilus) docusate sodium 100 mg capsule 100 mg PO BID 09/13/22 06/09/23 History levothyroxine 50 mcg tablet 50 mcg PO QAM 09/13/22 06/09/23 History (Synthroid) loratadine 10 mg tablet (Claritin) 10 mg PO DAILY PRN seasonal 09/13/22 06/09/23 History allergies melatonin 10 mg tablet 10 mg PO HS 09/13/22 06/09/23 History metformin 500 mg tablet 500 mg PO QAM 09/13/22 06/09/23 History protein supplement See Rx Instructions .Route .COMPLEX 09/13/22 06/09/23 History sodium phosphates 19 gram-7 197 ml IN DAILY PRN Constipation 09/13/22 06/09/23 History gram/118 mL enema (Fleet Enema) ampicillin 500 mg capsule 500 mg PO TID 06/09/23 06/09/23 History sitagliptin phosphate 25 mg tablet 25 mg PO QAM 06/09/23 06/09/23 History (Januvia) Patient History Medical History (Updated 06/12/23 @ 19:20 by Lisette Vallecillo DNP) Dyspnea and respiratory abnormalities Encounter for hospice care discussion Palliative care by specialist Discussion about advance care planning held with family member Weakness generalized Encounter for pre-operative examination Anemia Raynauds syndrome On home oxygen therapy only prn 2lpm via n/c. 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 "levels run good though" Hypothyroidism Diabetes mellitus, type 2 NIDDM History of shingles 1994 in the left eye. 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 Silver ([facility] Del Carmen Miranda, Neurology). denies hallucinations and agitation. mainly nonverbal; will randomly answer appropriately History of esophageal cancer (1992) surgical intervention and chemo/radiation History of stomach cancer (1992) surgical intervention and chemo/radiation NSTEMI (non-ST elevated myocardial infarction) 2017. Afib 2018 - controlled with medication. Follows with Dr. Wharton - no longer on anticoagulants. Surgical History History of esophagogastroduodenoscopy (EGD) History of colonoscopy History of heart artery stent x1 stent in LAD 12/13/2017 at [facility] History of cardiac cath 2018 at [facility] H/O esophagectomy (~1992) with a gastric pull up ([facility] August) H/O: hysterectomy Family History Other No family history of adverse response to anesthesia Social History Smoking Status: Never smoker Second Hand Exposure: No; Do You Dip or Chew Tobacco: No; Hx Alcohol Use: No Hx Substance Use: No Preferred Language: Greek Communication Ability: Impaired Communication Ability Comment: mainly nonverbal, will answer appropriately at times. 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: No Beliefs That Will Affect Care: Yarsani Current Living Situation: Family Current Living Situation Comment: lives with Abbie callejas Other Information That Helps Us Care for You: No Feels Safe at Home: Yes Safety Concerns: Feels Safe At This Time Assistive Devices: Denture - Upper, Mechanical Lift, Oxygen - Continuous and Wheelchair Review of Systems Review of Systems: All systems reviewed & are unremarkable except as noted in Subjective Physical Exam Physical Exam: bitemp wasting pt asleep in bed, listing to her right even respirations at rest with mild use of accessory muscles pale complexion skin cool tachy rate abd softly distended Results & Data Vital Signs (Past 12 Hours) Vital Signs Temp Pulse Pulse Resp BP BP Pulse Ox 06/12/23 11:08 36.4 C L 78 20 115/69 97 06/12/23 08:15 107 H 06/12/23 07:10 36.3 C L 74 20 108/65 97 06/12/23 04:18 107 H 06/12/23 04:04 36.3 C L 55 L 18 101/58 L 98 O2 Del Method O2 Flow Rate 06/12/23 11:08 Nasal Cannula 06/12/23 08:15 06/12/23 07:10 Nasal Cannula 06/12/23 04:18 06/12/23 04:04 Nasal Cannula 2 Laboratory Results data reviewed Diagnostic Findings data reviewed PG Care Time/CCT Total # of Minutes Spent Total Time Spent: 105 Total Time Spent with Patient: Total time spent is greater than 50% in coordination of care (as documented) at patient's floor/unit and/or counseling patient: I spent 105 minutes overall addressing this case: 25 min in medical data review/discussion with referring provider(s) and/or preparation for the visit 10 min in direct interaction with the patient/exam 40 min in Advance Care Planning/Goals of Care discussions as detailed above in note (must be >16min) 15 min in subsequent review and synthesis of assessment and plan 15 min communicating with other providers regarding the lizy ent's case: Advanced Care Planning 06461 Advanced Care Planning 30 Min 67210 Advanced Care Planning Additional 30 [place] [address] IN/OBS CONSULT LVL 4,60M Patient Type New History Comprehensive Exam Comprehensive Medical Decision Making High Complexity Diagnoses Weakness generalized R53.1 Dyspnea and respiratory abnormalities R06.00; R06.89 Discussion about advance care planning held with family member Z71.0 Palliative care by specialist Z51.5 Encounter for hospice care discussion Z71.89 Atrial fibrillation with RVR I48.91 Mitral regurgitation I34.0 Congestive heart failure (CHF) I50.9 Additional Codes Advanced Care Planning - 28750 Advanced Care Planning 30 Min: 83983 Advanced Care Planning 30 Min ([id number]) Advanced Care Planning - 92924 Advanced Care Planning Additional 30 Min: 12327 Advanced Care Planning Additional 30 Min ([id number])
--- NOTE | 2023-06-12 16:59 | Hospitalist Progress Note ---
Date of Service June 12, 2023 Assessment & Plan (1) Sepsis: Plan: Possible due to UTI vs aspiration PNA Lactate improved, still tachy from rapid afib BioFire neg, Procal negative E. coli in ur cx covered by Zosyn Zosyn also covers for aspiration PNA follow BCxs-remain NGTD (2) Atrial fibrillation with RVR: Plan: Recently switched from sotalol to metoprolol po Now started amiodarone gtt and heparin gtt in case of cardioversion as per Cardiology for ate control to improve acute on chronic HFpEF monitor on tele keep lytes replete (3) Congestive heart failure (CHF): Plan: Acute on chronic diastolic CHF Cardiac echo reveals left ventricular hypertrophy with normal ejection fraction. She does have some evidence of cor pulmonale which is probably chronic. With chronic left pleural effusions. Was diuresed with lasix and now intravascularly volume depleted hold further lasix rate control as above (4) Acute respiratory failure with hypoxia: Plan: Secondary to PNA, CHF, but is currently POx 100% on 2LNC-asked nurse to wean off (5) Metabolic acidosis with respiratory alkalosis: Plan: Present on admission 2/2 sepsis resolved (6) Urinary tract infection: Plan: as above (7) Pneumonia: Plan: as above, continue Zosyn (8) Corticobasal syndrome: Plan: Severe Parkinson's, continue Sinemet, nonverbal, does ambulate some with assistance follows with Neurology discussed end of life care options and goals of care with daughters so they are aware (9) Diabetes mellitus, type 2: Plan: SSI follow glucose Plan Dispo-continued stay, daughters desire home and NOT rehab Admission and Anticipated Discharge Date Admission Date: June 09, 2023 Subjective Pt nonverbal. Family at bedside think maybe less SOB, acting more like herself. SHe is eating. 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 OPERATOR Physical Exam Constitutional: + frail appearing; no acute distress Respiratory: normal respiratory effort Auscultation: + diminished lung sounds (bilateral at bases) and + crackles (bases); no wheezes Cardiovascular: Rate/Rhythm: + tachycardic and + irregularly irregular Heart Sounds: no murmur Extremities: no edema Gastrointestinal (Abdomen): normal bowel sounds, soft, nontender, no hepatosp lenomegaly Psychiatric: Orientation: alert; + not oriented x 3 Results & Data Results & Data Vital Signs (Past 12 Hours) Vital Signs Temp Pulse Pulse Resp BP BP Pulse Ox 06/12/23 15:43 110 H 06/12/23 15:08 35.9 C L 133 H 23 109/74 99 06/12/23 11:08 36.4 C L 78 20 115/69 97 06/12/23 08:15 107 H 06/12/23 07:10 36.3 C L 74 20 108/65 97 O2 Del Method O2 Flow Rate 06/12/23 15:43 06/12/23 15:08 Nasal Cannula 2 06/12/23 11:08 Nasal Cannula 06/12/23 08:15 06/12/23 07:10 Nasal Cannula Laboratory Results CBC, BMP reviewed Diagnostic Findings CXR reviewed PG Care Time/CCT Total # of Minutes Spent Total Time Spent with Patient: Total time spent is greater than 50% in coordination of care (as documented) at patient's floor/unit and/or counseling patient: Coding Level of Care Code 55211 SUB INP/OBS CARE 3/50MIN Diagnoses Sepsis A41.9 Atrial fibrillation with RVR I48.91 Congestive heart failure (CHF) I50.9 Acute respiratory failure with hypoxia J96.01 Metabolic acidosis with respiratory alkalosis E87.20; E87.3 Urinary tract infection N39.0 Pneumonia J18.9 Corticobasal syndrome G31.85 Diabetes mellitus, type 2 E11.9
[2023-06-12] MEDS: INSULIN ASPART PER UNIT CHARGE SC SCH (17:31)
[2023-06-12] MEDS: LANTUS PER UNIT CHARGE SQ SCH (17:31)
[2023-06-12] MEDS: AMIODARONE / D5W 360 MG/200 ML BAG IV SCH (17:32)
[2023-06-12 19:36] LABS: ANTI-Xa, UFH(UnfractionatedHep 0.59 IU/ml (0.3-0.7)
[2023-06-12] MEDS ORDERED: PHARMACY GLYCEMIC MGMT CONSULT PRN (22:20)
[2023-06-13] MEDS: PIPER/TAZO 4.5g in D5W MINI-B 100 ML IV SCH (07:35)
[2023-06-13 08:08] LABS: ANTI-Xa, UFH(UnfractionatedHep 0.66 IU/ml (0.3-0.7)
[2023-06-13 08:43] LABS: Basophils # (auto) 0.03 K/uL (0.00-0.20); Basophils % (auto) 0.3 %; Echinocytes 2+; Eosinophils # (auto) 0.14 K/uL (0.00-0.50); Eosinophils % (auto) 1.3 %; Hematocrit (blood only) 38.4 % (37.0-47.0); Hemoglobin 12.7 g/dl (12.0-16.0); Immature Granulocytes # (auto) 0.13 K/uL (0.01-0.20); Immature Granulocytes % (auto) 1.2 %; Lymphocytes % (auto) 7.6 %; Mean Corpuscular Hgb Conc 33.1 g/dL (32.0-36.0); Mean Corpuscular Volume 90.8 fL (80.0-100.0); Mean Platelet Volume 12.6 fL (9.4-12.4); Monocytes # (auto) 0.78 K/uL (0.11-0.59); Monocytes % (auto) 7.4 %; Neutrophils % (auto) 82.2 %; Nucleated RBC # (auto) 0.27 K/uL (0.00-0.12); Nucleated RBC % (auto) 2.6 %; Platelet Count 183 K/uL (130-400); Platelet Estimate Normal (Normal); Polychromasia 1+; RDW Coefficient of Variation 17.1 % (11.5-14.5); RDW Standard Deviation 54.1 fL (36.4-46.3); Red Blood Count 4.23 M/uL (4.20-5.40); White Blood Count 10.48 K/ul (4.8-10.8)
[2023-06-13 09:16] LABS: Calcium 9.5 mg/dl (8.6-10.3); Potassium 4.1 mmol/L (3.5-5.1)
[2023-06-13 09:22] LABS: BUN Creatinine Ratio 59.8 (10-20); Creatinine Clr Calc Pharmacy 33.1 ml/min; Est GFR (African American) 58.9 ml/min; Est GFR (Non-African American) 50.8 ml/min
--- NOTE | 2023-06-13 09:34 | Cardiology Progress Note ---
Date of Service June 13, 2023 Assessment & Plan Admission and Anticipated Discharge Date Admission Date: June 09, 2023 Subjective History is obtained from the daughter. She is more alert than she has been and her daughter was spoon feeding her. Otherwise the history is unobtainable. Results & Data Vital Signs (Past 12 Hours) Vital Signs Temp Pulse Pulse Resp BP Pulse Ox O2 Del Method 06/13/23 08:32 36.8 C 143 H 18 131/82 96 Room Air 06/13/23 02:57 36.8 C 132 H 20 99/65 L 93 Room Air 06/13/23 00:33 136 H 18 101/72 93 Room Air 06/12/23 22:11 36.4 C L 136 H 18 98/59 L 96 Room Air 06/12/23 22:00 152 H Assessment & Plan (1) Atrial fibrillation with RVR: (2) Congestive heart failure (CHF): Plan Impression: 1. Lhn-FE-hiilvugzm myocardial infarction in 2018. 2. Atrial fibrillation 3. Chronic use of sotalol 40 mg b.i.d. 4. 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 5. Advanced Parkinson's disease. 7. Anemia. 8. Diabetes. 9. Negative MRA for aneurysms in 05/2019 with an MRI suggesting small-vessel disease. 10. Echocardiogram this admission - EF 60%, no wma 11. Diastolic heart failure This is a difficult situation. She likely has significant diastolic dysfunction and a stiff left ventricle. if you look at her echo her LV is small and underfilled. The tachycardia is only making this worse. She has significantly elevated left atrial filling pressures due to diastolic dysfunction and the loss of her atrial kick is contributing to her heart failure symptoms. In my opinion her only option is rate control. I do not think FELICITAS/cardioversion is an option. Dr. Dunaway saw her over the weekend and agreed with a rate control strategy. Will continue with IV amiodarone which will hopefully slow her down. This m marcela's blood pressure is the first blood pressure that might allow us to increase her beta-blockers further. The other option would be digoxin which would be difficult to use in someone who is also on amiodarone and has renal dysfunction. I think short-term prognosis is poor. I do not think the family is willing to accept this. The notes from palliative care documented this well. If we cannot control her rate I would send her home on hospice. The daughter who is here this morning had a number of questions with regards to whether we could use adenosine (not used for atrial fibrillation), placement of a pacemaker to treat a fast heart rhythm (we discussed pacemakers are used for slow heart rhythms) as well as a number of other treatment options that are nonviable for atrial fibrillation. Review of Systems: unable to provide Physical Exam Constitutional: + ill appearing Respiratory: normal respiratory effort, lungs clear to auscultation Cardiovascular: Rate/Rhythm: + abnormal rate and + abnormal rhythm Heart Sounds: normal S1 and normal S2 Extremities: no edema Skin: no rashes, warm and dry Neurologic: awake left hand contracture
--- NOTE | 2023-06-13 12:13 | Pharmacy Report ---
Pharmacy Glycemic Short Note 2 - Date of Service June 13, 2023 - Glycemic Short BSG Results (Last 24 hours): 06/12/23 06/12/23 06/12/23 16:01 16:08 20:18 Glucose POC Glucose 408 H* 380 H* 431 H* 06/12/23 06/12/23 06/12/23 20:20 21:59 22:01 Glucose POC Glucose 406 H* 453 H* 351 H* 06/13/23 06/13/23 06/13/23 00:31 07:40 07:45 Glucose 172 H POC Glucose 203 H 180 H 06/13/23 11:17 Glucose POC Glucose 195 H OUTPATIENT ANTIDIABETIC REGIMEN: * metformin 500mg daily * sitagliptin 25mg QAM * HbA1c 7.9% (06/10/23) ASSESSMENT: * Kassandra is an 83 YOF admitted with uncontrolled atrial fibrillation and a history of T2DM. Pharmacy has been consulted for glycemic management while inpatient. * BSGs elevated yesterday, A1c not terrible for age, added loose carbohydrate coverage and Lantus at approximately a weight based scale of 2. * She received 35 units of insulin yesterday * She is currently on an amiodarone drip and a heparin drip for her atrial fibr illation (both in dextrose solutions could be contributing to hyperglycemia) * Fasting BSG this AM acceptable, continue current basal regimen. * Slightly tighten carbohydrate coverage due to BSGs rising at lunchtime. PLAN FOR INPATIENT GLYCEMIC CONTROL: * Hold outpatient oral diabetes medications * Basal insulin * Lantus 10 units SQ daily * Bolus insulin * NovoLog per scale ACHS or Q6hrs while NPO * Goal Range: Low 110 mg/dL - High 140 mg/dL * Correction Factor: 30 mg/dL/unit * Nutritional / Prandial insulin per carb ratio of 1 unit per 12 grams CHO consumed
[2023-06-13] MEDS: SENNA 8.6 MG TAB PO SCH (13:16)
[2023-06-13] MEDS: SOD PHOSPHATE/SOD BIPHOSPHATE ENEMA 132 ML BTL PR STA (16:48)
[2023-06-13] MEDS: FAMOTIDINE 20 MG TAB PO SCH (17:16)
--- NOTE | 2023-06-13 18:03 | Hospitalist Progress Note ---
Date of Service June 13, 2023 Assessment & Plan (1) Atrial fibrillation with RVR: Plan: Continues with rapid atrial flutter and atrial fibrillation, rates uncontrolled still in 120s-140s despite being on amiodarone gtt x 36 hrs and metoprolol Recently switched from sotalol to metoprolol po as outpt Causing acute on chronic HFpEF Continue amiodarone gtt and heparin gtt in case of cardioversion as per Cardiology for rate control to improve acute on chronic HFpEF Add on amiodarone 400mg po bid overlapping with amiodarone gtt Increase metoprolol to 25mg po qid monitor on tele keep lytes replete-hold KCl supplement as not on lasix (2) Sepsis: Plan: Possible due to UTI vs aspiration PNA Lactate improved, still tachy from rapid afib BioFire neg, Procal negative E. coli in ur cx covered by Zosyn Zosyn also covers for aspiration PNA follow BCxs-remain NGTD (3) Congestive heart failure (CHF): Plan: Acute on chronic diastolic CHF Cardiac echo reveals left ventricular hypertrophy with normal ejection fraction. She does have some evidence of cor pulmonale which is probably chronic. With chronic left pleural effusions. Was diuresed with lasix and now intravascularly volume depleted hold further lasix rate control as above No need for frequent chest xrays unless status changes but not hypoxic and not in resp distress (4) Acute respiratory failure with hypoxia: Plan: Secondary to PNA, CHF, now weaned off O2 (5) Metabolic acidosis with respiratory alkalosis: Plan: Present on admission 2/2 sepsis resolved (6) Urinary tract infection: Plan: as above (7) Pneumonia: Plan: as above, continue Zosyn (8) Corticobasal syndrome: Plan: Severe Parkinson's, continue Sinemet, nonverbal, does ambulate some with assistance follows with Neurology discussed end of life care options and goals of care with daughters so they are aware (9) Diabetes mellitus, type 2: Plan: SSI follow glucose Plan Dispo-continued stay, daughters desire home and NOT rehab Admission and Anticipated Discharge Date Admission Date: June 09, 2023 Subjective Pt more alert and awake today, just had a large BM and daughters report she is better. HR still high 120-140s, daughters report some periods of increased work of breathing today. Daughter asking about putting pt on Entresto or something similar for her heart failure. I discussed her care with Dr. Wharton Physical Exam Constitutional: + frail appearing; no acute distress Respiratory: normal respiratory effort Auscultation: + diminished lung sounds (bilateral at bases); no crackles and no wheezes Cardiovascular: Rate/Rhythm: + tachycardic and + irregularly irregular Heart Sounds: no murmur Extremities: no edema Gastrointestinal (Abdomen): normal bowel sounds, soft, nontender, no hepatosplenomegaly Psychiatric: Orientation: alert; + not oriented x 3 Results & Data Results & Data Vital Signs (Past 12 Hours) Vital Signs Temp Pulse Pulse Resp BP BP Pulse Ox 06/13/23 17:11 125 H 143/91 H 06/13/23 15:00 36.8 C 129 H 20 124/69 97 06/13/23 12:10 06/13/23 12:00 36.7 C 121 H 20 107/72 98 06/13/23 08:32 36.8 C 143 H 18 131/82 96 06/13/23 07:36 126 H O2 Del Method 06/13/23 17:11 06/13/23 15:00 Room Air 06/13/23 12:10 Room Air 06/13/23 12:00 Room Air 06/13/23 08:32 Room Air 06/13/23 07:36 Laboratory Results CBC, BMP, blood cxs reviewed PG Care Time/CCT Total # of Minutes Spent Total Time Spent with Patient: Total time spent is greater than 50% in coordination of care (as documented) at patient's floor/unit and/or counseling patient: Coding Level of Care Code 28426 SUB INP/OBS CARE 2/35MIN Diagnoses Atrial fibrillation with RVR I48.91 Sepsis A41.9 Congestive heart failure (CHF) I50.9 Acute respiratory failure with hypoxia J96.01 Metabolic acidosis with respiratory alkalosis E87.20; E87.3 Urinary tract infection N39.0 Pneumonia J18.9 Corticobasal syndrome G31.85 Diabetes mellitus, type 2 E11.9
[2023-06-13] MEDS: METOPROLOL TARTRATE 25 MG TAB PO SCH (18:13)
[2023-06-13] MEDS: ATORVASTATIN 40 MG TAB PO SCH (20:25)
[2023-06-13] MEDS: AMIODARONE 200 MG TAB PO SCH (20:37)
[2023-06-14 08:20] LABS: BUN Creatinine Ratio 61.3 (10-20); Calcium 9.2 mg/dl (8.6-10.3); Creatinine Clr Calc Pharmacy 37.2 ml/min; Est GFR (African American) 65.9 ml/min; Est GFR (Non-African American) 56.8 ml/min; Magnesium 1.8 mg/dl (1.7-2.4); Potassium 4.1 mmol/L (3.5-5.1)
[2023-06-14 08:27] LABS: ANTI-Xa, UFH(UnfractionatedHep 0.66 IU/ml (0.3-0.7)
--- NOTE | 2023-06-14 09:08 | Cardiology Progress Note ---
Date of Service June 14, 2023 Assessment & Plan Admission and Anticipated Discharge Date Admission Date: June 09, 2023 Subjective History is obtained from the family who notes she is feeling better and seems more alert. She does appear to be clearing some secretions and at times has some mild [place] respirations. Results & Data Vital Signs (Past 12 Hours) Vital Signs Temp Pulse Pulse Resp BP Pulse Ox O2 Del Method 06/14/23 08:00 119 H 06/14/23 07:39 114 H 20 101/63 98 Room Air 06/14/23 03:09 36.4 C L 94 H 20 115/81 98 Room Air 06/13/23 22:54 36.4 C L 119 H 20 101/67 96 Room Air 06/13/23 22:00 135 H Assessment & Plan (1) Atrial fibrillation with RVR: (2) Congestive heart failure (CHF): Plan Impression: 1. [id number] myocardial infarction in 2018. 2. Atrial fibrillation 3. Chronic use of sotalol 40 mg b.i.d. 4. 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 5. Advanced Parkinson's disease. 7. Anemia. 8. Diabetes. 9. Negative MRA for aneurysms in 05/2019 with an MRI suggesting small-vessel disease. 10. Echocardiogram this admission - EF 60%, no wma 11. Diastolic heart failure This is a difficult situation. She likely has significant diastolic dysfunction and a stiff left ventricle. if you look at her echo her LV is small and underfilled. The tachycardia is only making this worse. She has significantly elevated left atrial filling pressures due to diastolic dysfunction and the loss of her atrial kick is contributing to her heart failure symptoms. In my opinion her only option is rate control. I do not think FELICITAS/cardioversion is an option. Dr. Dunaway saw her over the weekend and agreed with a rate control strategy. In essence her care at this point is palliative from a cardiac standpoint. I would add digoxin even though her dig level was elevated upon admission (while she had acute kidney injury). 0.125 mg every other day. Will have to be careful as the amiodarone is going to potentiate her dig level. I will continue with IV amiodarone and oral amiodarone for another 24 hours. In discussion with the family they want her to go home on anticoagulation. We discussed stopping her heparin this morning and switching her over to Eliquis 2- 1/2 mg twice daily given her age greater than 80 and her weight less than 60 kg. If her heart rates are reasonable tomorrow around 100 or so I have no problem with her going home. I do not think is get a change for long-term management. Family takes very good care of her at home and they confirm overall she is feeling better. Review of Systems: unable to provide Physical Exam Constitutional: + ill appearing Respiratory: normal respiratory effort, lungs clear to auscultation Cardiovascular: Rate/Rhythm: + abnormal rate and + abnormal rhythm Heart Sounds: normal S1 and normal S2 Extremities: no edema Skin: no rashes, warm and dry Neurologic: awake left hand contracture
[2023-06-14] MEDS: DIGOXIN 0.125 MG TAB PO SCH (10:37)
[2023-06-14] MEDS: AMOXICILLIN/CLAVULANATE 875 MG TAB PO SCH (10:37)
[2023-06-14] MEDS: APIXABAN 2.5 MG TAB PO SCH (12:48)
--- NOTE | 2023-06-14 14:40 | Fluoroscopy Report ---
FL video swallow HISTORY: chronic oropharyngeal dysphagia TECHNIQUE: Video fluoroscopic evaluation of swallowing was performed in the AP and lateral projection s by the speech pathology staff. The patient is fed nectar-thick and thin liquid barium, a barium coa tavo wafer, and barium pudding. FLUOROSCOPY TIME: 4 minutes and 47 seconds. Ka,r: 19.0 mGy COMPARISON STUDY: None. FINDINGS: There is normal hyoid excursion and epiglottic deflection. No significant penetration or as piration with the thin liquid or nectar thick liquid barium. However, the patient was unable to swall ow the barium pudding. This was followed by a thin liquid and nectar thick liquid wash resulting in p remature spillover and silent aspiration of the liquid wash. IMPRESSION: 1. Aspiration of the liquid wash as described above. 2. Please see the speech pathologist report for detailed findings and recommendations. ACT 112: Negative or not required by law. Electronically signed by: Tenzin Zayas M.D. 06/14/2023 2:37 PM
--- NOTE | 2023-06-14 16:52 | Hospitalist Progress Note ---
Date of Service June 14, 2023 Assessment & Plan (1) Atrial fibrillation with RVR: Plan: Continues with rapid atrial flutter and atrial fibrillation, rates remained uncontrolled in 120s-140s despite being on amiodarone gtt, amiodarone 400mg po bid, and increasing doses of metoprolol Recently switched from sotalol to metoprolol po as outpt Causing acute on chronic HFpEF Continue amiodarone gtt and po amiodarone Add on digoxin and already much improved-rates down to 90-100s Continue metoprolol 25mg po qid monitor on tele keep lytes replete-hold KCl supplement as not on lasix If rates remain in 100s, can dc to home tomorrow Clinically improved (2) Sepsis: Plan: Possible due to UTI vs aspiration PNA Lactate improved, tachy from rapid afib BioFire neg, Procal negative E. coli in ur cx covered by Zosyn Zosyn also covers for aspiration PNA follow BCxs-remain NGTD Changed Zosyn to Augmentin to finish out 7 day course (3) Congestive heart failure (CHF): Plan: Acute on chronic diastolic CHF Cardiac echo reveals left ventricular hypertrophy with normal ejection fraction. She does have some evidence of cor pulmonale which is probably chronic. With chronic left pleural effusions. Was diuresed with lasix and now euvolemic hold further lasix rate control as above No need for frequent chest xrays unless status changes but not hypoxic and not in resp distress (4) Acute respiratory failure with hypoxia: Plan: Secondary to PNA, CHF, now weaned off O2 (5) Metabolic acidosis with respiratory alkalosis: Plan: Present on admission 2/2 sepsis resolved (6) Urinary tract infection: Plan: as above Keep Denise in place on discharge at daughter's request due to being bedbound and has small sacral wound (7) Pneumonia: Plan: as above, continue abx aspiration precautions Video swallow shows aspiration only with thin liquid chaser after pudding--> recommends pureed diet and thin liquids, mouth care achs (8) Corticobasal syndrome: Plan: Severe Parkinson's, continue Sinemet, nonverbal, does ambulate some with assistance follows with Neurology discussed end of life care options and goals of care with daughters so they are aware (9) Diabetes mellitus, type 2: Plan: SSI follow glucose Plan Dispo-continued stay, daughters desire home and NOT rehab-plan for dc to home tomorrow Admission and Anticipated Discharge Date Admission Date: June 09, 2023 Anticipated date of discharge: 06/15/23 Subjective Pt more awake and alert today, had video swallow. Daughters at bedside are pleased with her progress today, say she's starting to talk a little bit today. HRs have slowed down to the 90-100s with digoxin Physical Exam Constitutional: + frail appearing; no acute distress Respiratory: normal respiratory effort Auscultation: + diminished lung sounds (bilateral at bases); no crackles and no wheezes Cardiovascular: Rate/Rhythm: regular rate and + irregularly irregular Heart Sounds: no murmur Extremities: no edema Gastrointestinal (Abdomen): normal bowel sounds, soft, nontender, no hepatosplenomegaly Psychiatric: Orientation: alert; + not oriented x 3 Results & Data Results & Data Vital Signs (Past 12 Hours) Vital Signs Temp Pulse Pulse Resp BP BP Pulse Ox 06/14/23 15:41 105 H 06/14/23 12:03 36.4 C L 133 H 18 112/74 98 06/14/23 10:37 120 H 06/14/23 08:00 119 H 06/14/23 07:39 114 H 20 101/63 98 O2 Del Method 06/14/23 15:41 06/14/23 12:03 Room Air 06/14/23 10:37 06/14/23 08:00 06/14/23 07:39 Room Air Laboratory Results CBC, BMP, magnesium reviewed PG Care Time/CCT Total # of Minutes Spent Total Time Spent with Patient: Total time spent is greater than 50% in coordination of care (as documented) at patient's floor/unit and/or counseling patient: Coding Level of Care Code 18232 SUB INP/OBS CARE 3/50MIN Diagnoses Atrial fibrillation with RVR I48.91 Sepsis A41.9 Congestive heart failure (CHF) I50.9 Acute respiratory failure with hypoxia J96.01 Metabolic acidosis with respiratory alkalosis E87.20; E87.3 Urinary tract infection N39.0 Pneumonia J18.9 Corticobasal syndrome G31.85 Diabetes mellitus, type 2 E11.9
[2023-06-15 06:39] LABS: Basophils # (auto) 0.01 K/uL (0.00-0.20); Basophils % (auto) 0.1 %; Eosinophils # (auto) 0.27 K/uL (0.00-0.50); Eosinophils % (auto) 3.3 %; Hematocrit (blood only) 36.4 % (37.0-47.0); Hemoglobin 12.2 g/dl (12.0-16.0); Immature Granulocytes # (auto) 0.05 K/uL (0.01-0.20); Immature Granulocytes % (auto) 0.6 %; Lymphocytes # (auto) 0.79 K/uL (1.20-3.40); Lymphocytes % (auto) 9.7 %; Mean Corpuscular Hemoglobin 30.3 pg (25.0-34.0); Mean Corpuscular Hgb Conc 33.5 g/dL (32.0-36.0); Mean Corpuscular Volume 90.3 fL (80.0-100.0); Mean Platelet Volume 11.5 fL (9.4-12.4); Monocytes # (auto) 0.78 K/uL (0.11-0.59); Monocytes % (auto) 9.6 %; Neutrophils # (auto) 6.26 K/uL (1.40-6.50); Neutrophils % (auto) 76.7 %; Nucleated RBC # (auto) 0.06 K/uL (0.00-0.12); Nucleated RBC % (auto) 0.7 %; Platelet Count 204 K/uL (130-400); RDW Coefficient of Variation 17.3 % (11.5-14.5); Red Blood Count 4.03 M/uL (4.20-5.40); White Blood Count 8.16 K/ul (4.8-10.8)
[2023-06-15 07:10] LABS: BUN Creatinine Ratio 58.4 (10-20); Calcium 8.8 mg/dl (8.6-10.3); Creatinine Clr Calc Pharmacy 41.5 ml/min; Est GFR (African American) 69.5 ml/min; Est GFR (Non-African American) 59.9 ml/min; Magnesium 1.9 mg/dl (1.7-2.4); Potassium 3.7 mmol/L (3.5-5.1)
--- NOTE | 2023-06-15 10:17 | Cardiology Progress Note ---
Date of Service June 15, 2023 Assessment & Plan Admission and Anticipated Discharge Date Admission Date: June 09, 2023 Subjective Family thinks that she is better. They want to take her home Results & Data Vital Signs (Past 12 Hours) Vital Signs Temp Pulse Pulse Resp BP BP Pulse Ox 06/15/23 07:37 101 H 06/15/23 07:20 36.7 C 99 H 16 141/108 H 98 06/15/23 02:38 35.8 C L 96 H 18 119/81 98 06/14/23 22:40 36.3 C L 121 H 18 124/84 94 O2 Del Method 06/15/23 07:37 06/15/23 07:20 Room Air 06/15/23 02:38 Room Air 06/14/23 22:40 Room Air Stable, non verbal Lungs CTA B/L Heart IRIR, no murmurs No edema Assessment & Plan (1) Atrial fibrillation with RVR: (2) Congestive heart failure (CHF): Plan Impression: 1. [id number] myocardial infarction in 2018. 2. Atrial fibrillation 3. Chronic use of sotalol 40 mg b.i.d. 4. 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 5. Advanced Parkinson's disease. 7. Anemia. 8. Diabetes. 9. Negative MRA for aneurysms in 05/2019 with an MRI suggesting small-vessel disease. 10. Echocardiogram this admission - EF 60%, no wma 11. Diastolic heart failure HRs better and will continue to decline with PO amio over the next week or two; unaware of HR's D/W Primary service; ok to home will arrange f/u in 2 weeks or so BMP and dig level in 2 weeks Meds for Afib: Apixaban 2.5mg BID Amio 400 BID x 3 days then 200mg BID x 1 month then 200mg daily Dig 0.125mg Q72 Metoprolol 50 BID Lasix PRN weight gain or swelling discussed with family at bedside
--- NOTE | 2023-06-15 10:21 | Pharmacy Report ---
Pharmacy Glycemic Short Note 2 - Date of Service June 15, 2023 - Glycemic Short BSG Results (Last 24 hours): 06/14/23 06/14/23 06/14/23 11:39 15:46 20:27 Glucose POC Glucose 178 H 155 H 81 06/15/23 06/15/23 06:09 07:03 Glucose 70 POC Glucose 92 OUTPATIENT ANTIDIABETIC REGIMEN: * metformin 500mg daily * sitagliptin 25mg QAM * HbA1c 7.9% (06/10/23) ASSESSMENT: 06/15 * Patient received total of 13 units of insulin yesterday, of which 10 units were basal insulin * Fasting BSG 70 mg/dL - will hold basal until PO intake resumes. Very limited PO intake yesterday noted. * Continue same CF/CR for now 06/14 * Kassandra is an 83 YOF admitted with uncontrolled atrial fibrillation and a history of T2DM. Pharmacy has been consulted for glycemic management while inpatient. * BSGs elevated yesterday, A1c not terrible for age, added loose carbohydrate coverage and Lantus at approximately a weight based scale of 2. * She received 35 units of insulin yesterday * She is currently on an amiodarone drip and a heparin drip for her atrial fibrillation (both in dextrose solutions could be contributing to hyperglycemia) * Fasting BSG this AM acceptable, continue current basal regimen. * Slightly tighten carbohydrate coverage due to BSGs rising at lunchtime. PLAN FOR INPATIENT GLYCEMIC CONTROL: * Hold outpatient oral diabetes medications * Basal insulin * Lantus - hold * Bolus insulin * NovoLog per scale ACHS or Q6hrs while NPO * Goal Range: Low 110 mg/dL - High 140 mg/dL * Correction Factor: 30 mg/dL/unit * Nutritional / Prandial insulin per carb ratio of 1 unit per 12 grams CHO consumed
--- NOTE | 2023-06-15 11:34 | Discharge Summary ---
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 Unable to get any history from patient as mostly non verbal at baseline. They reports a 2 week decline in fatigue and generalized weakness. Diagnosed with a UTI as outpatient with group B strep and was given ampicillin for this. She started having bouts of shortness of breath and difficulty breathing so they gave her oxygen as needed (she has a prescription for PRN 2LPM O2 but baseline is on room air). On one occasion her daughter measured her heart rate and is was fast therefore called her access control specialist. She went to her access control specialist office on and EKG showed atrial fibrillation (this is a known diagnosis which is paroxysmal and she takes sotalol for this). They started metoprolol succinate without much effect and took labs. Her daughter was told her labs look like she is dehydrated and she was recommended to take plain water. She has baseline dysphagia and requires thickened and pureed foods therefore this is difficult but she has been eating and drinking although notably less the last few days. They were told if not better on Sunday to call back. However due to worsening weakness they decided to bring her to the ER today. No diarrhea, abdominal pain, nausea or vomiting. She is coughing up mucus but this is not unusual for her with chronic dysphagia. She has a known history of a. flutter/fibrillation paroxysmally and on sotalol since 2018. She is currently has 1.5 days left of ampicillin for her UTI. In the ER she was given metoprolol 5mg IV and diltiazem 10mg IV causing hypotension therefore Principal Dx & Hospital Course #1 = Principal Diagnosis (1) Atrial fibrillation with RVR: Continues with rapid atrial flutter and atrial fibrillation, rates remained uncontrolled in 120s-140s despite being on amiodarone gtt, amiodarone 400mg po bid, and increasing doses of metoprolol Recently switched from sotalol to metoprolol po as outpt Causing acute on chronic HFpEF Started on amiodarone gtt and po amiodarone Added on digoxin and now much improved-rates down to 90-100s Continue metoprolol 50mg po bid Continue amiodaron e400mg po bid x 2 more days then 200mg po bid x 1 month, then f/u Cardiology Continue digoxin 125mcg po q72h Check dig level and BMP in 2 weeks with Cardiology (2) Sepsis: Possible due to UTI vs aspiration PNA Lactate improved, tachy from rapid afib now resolved BioFire neg, Procal negative E. coli in ur cx covered by Zosyn Zosyn also covers for aspiration PNA follow BCxs-remain NGTD Changed Zosyn to Augmentin to finish out 7 day course-needs 2 more days after dsicahrge (3) Congestive heart failure (CHF): Acute on chronic diastolic CHF Cardiac echo reveals left ventricular hypertrophy with normal ejection fraction. She does have some evidence of cor pulmonale which is probably chronic. With chronic left pleural effusions. Was diuresed with lasix and now euvolemic hold further lasix and give prn at home rate control as above No need for frequent chest xrays unless status changes but not hypoxic and not in resp distress (4) Acute respiratory failure with hypoxia: Secondary to PNA, CHF, now weaned off O2 (5) Metabolic acidosis with respiratory alkalosis: Present on admission 2/2 sepsis resolved (6) Urinary tract infection: as above Keep Denise in place on discharge at daughter's request due to being bedbound and has small sacral wound (7) Pneumonia: as above, continue abx aspiration precautions Video swallow shows aspiration only with thin liquid chaser after pudding--> recommends pureed diet and thin liquids, mouth care achs (8) Corticobasal syndrome: Severe Parkinson's, continue Sinemet, nonverbal, does ambulate some with assistance follows with Neurology discussed end of life care options and goals of care with daughters so they are aware (9) Diabetes mellitus, type 2: resume home januvia and metformin on discharge controlled for age and comorbidities Plan Dispo-continued stay, daughters desire home and NOT rehab-plan for dc to home today Discharge Exam Constitutional + frail appearing; no acute distress Respiratory normal respiratory effort Auscultation: + diminished lung sounds (bilateral at bases); no crackles and no wheezes Cardiovascular Rate/Rhythm: regular rate and + irregularly irregular Heart Sounds: no murmur Extremities: no edema Gastrointestinal (Abdomen) normal bowel sounds, soft, nontender, no hepatosplenomegaly Psychiatric Orientation: alert; + not oriented x 3 Updated Medication List Medication Instructions Recorded Confirmed Type atorvastatin 40 mg tablet (Lipitor) 40 mg PO HS 06/15/19 06/09/23 History carbidopa 25 mg-levodopa 100 mg 1 tab PO TID 06/15/19 06/09/23 History tablet cholecalciferol (vitamin D3) 50 50 mcg PO QAM 06/15/19 06/09/23 History mcg (2,000 unit) tablet (Vitamin D3) ferrous sulfate 325 mg (65 mg 325 mg PO 3XWK 06/15/19 06/09/23 History iron) tablet (iron) sertraline 50 mg tablet 50 mg PO QAM 06/15/19 06/09/23 History sotalol 80 mg tablet 40 mg PO BID 06/15/19 06/09/23 History Lactobacillus acidophilus 250 1,000 mmu cells PO QAM 09/13/22 06/09/23 History million cell capsule (Probiotic Acidophilus) docusate sodium 100 mg capsule 100 mg PO BID 09/13/22 06/09/23 History levothyroxine 50 mcg tablet 50 mcg PO QAM 09/13/22 06/09/23 History (Synthroid) loratadine 10 mg tablet (Claritin) 10 mg PO DAILY PRN seasonal 09/13/22 06/09/23 History allergies melatonin 10 mg tablet 10 mg PO HS 09/13/22 06/09/23 History metformin 500 mg tablet 500 mg PO QAM 09/13/22 06/09/23 History protein supplement See Rx Instructions .Route .COMPLEX 09/13/22 06/09/23 History sodium phosphates 19 gram-7 197 ml NC DAILY PRN Constipation 09/13/22 06/09/23 History gram/118 mL enema (Fleet Enema) ampicillin 500 mg capsule 500 mg PO TID 06/09/23 06/09/23 History sitagliptin phosphate 25 mg tablet 25 mg PO QAM 06/09/23 06/09/23 History (Januvia) amiodarone 200 mg tablet 400 mg (2 x 200 mg) PO BID #64 tabs 06/15/23 Rx amoxicillin 875 mg-potassium 1 tab PO BIDM #4 tabs 06/15/23 Rx clavulanate 125 mg tablet apixaban 2.5 mg tablet (Eliquis) 2.5 mg PO BID #60 tabs 06/15/23 Rx digoxin 125 mcg (0.125 mg) tablet 0.125 mg PO Q72H #10 tabs 06/15/23 Rx (Digitek) metoprolol tartrate 50 mg tablet 50 mg PO BID #60 tabs 06/15/23 Rx Hospital Stay Data Consultations 06/09/23 18:21 ED Decision to Admit Stat 06/09/23 21:29 Consult Cardiology Routine 06/11/23 17:16 Consult Palliative Care Routine Diagnostic Imagining Performed 06/09/23 20:39 CT abd pelvis wo con Stat 06/14/23 13:15 FL video swallow Routine ECHO Pending Results Patient Have Any Pending Studies at Discharge: No Discharge Instructions Given to Patient (Per Discharging Provider) You were admitted for UTI, suspected aspiration pneumonia, and rapid atrial flutter causing some congestive heart failure. You improved with antibiotics, control of your atrial flutter heart rates, and with removal of fluid through Lasix. Please continue amiodarone at 400 mg twice a day for 2 more days and then decrease the dose to 200 mg twice a day for 1 month and follow-up with your access control specialist for any further changes on the dosing. You were also started on digoxin 1 tablet every 3 days and metoprolol both for control of your heart rate. You should have blood work to include a basic metabolic panel and a digoxin level in 2 weeks. You were started on Eliquis as a blood thinner to help prevent strokes associated with atrial flutter. Please complete 2 more days of the antibiotic called Augmentin for your urine infection and pneumonia. Call your Primary Care doctor if any of the following symptoms or problems start or get worse: * Shortness of breath or difficulty breathing * Wake up at night short of breath * Chest pain * Cough * Swelling of your hands, feet, or legs * More fatigued or tired with your normal activity * Palpitations - sudden fast heart beats WEIGHT * Weigh yourself every morning after using the bathroom. * Use the same scale. * Wear the same amount of clothing. * Write your weight down on a chart. * Call your Primary Care doctor if you gain more than 2-3 pounds in 1-2 days. MEDICATIONS * Use this discharge instruction sheet for medication instructions. * Take your medications at the time your doctor ordered. * Do not skip a dose of your medicines. * If you miss a dose of medicine, take it as soon as possible, but DO NOT DOUBLE A DOSE. * Read your medicine information when you get home. * Know all of the side effects of your medicine. If in doubt, ask your pharmacist * Call your Primary Care doctor's office if you have any side effects. * Be sure all of your doctors know what medicine and herbs you take (including cold, flu, and herbal medicine). Take the following with you to your follow-up doctor appointments: * Weight Chart * Medication List * List of questions Do not drink excessive alcohol, beer or wine. Total Time Total Time Spent Total Time Spent (In Minutes): 35 min Total Time Includes: Examination of the Patient, Discharge Planning, Medication Reconciliation and Communication With Other Providers (Cardiology) Coding Level of Care Code 97142 INP/OBS DISCH >30 MIN Diagnoses Atrial fibrillation with RVR I48.91 Sepsis A41.9 Congestive heart failure (CHF) I50.9 Acute respiratory failure with hypoxia J96.01 Metabolic acidosis with respiratory alkalosis E87.20; E87.3 Urinary tract infection N39.0 Pneumonia J18.9 Corticobasal syndrome G31.85 Diabetes mellitus, type 2 E11.9
[2023-06-16] MEDS ORDERED: DIGOXIN 0.125 MG TAB PO SCH (16:00)
== END 2023-06-15 12:20 | disposition home health service (06) | DRG 871 ==
LOC: ED 15:56 → 2S 18:56 → SUATTDRO 18:56 → 2S 21:00
DX: R41.4 Neurologic neglect syndrome; G20.C Parkinsonism, unspecified; J69.0 Pneumonitis due to inhalation of food and vomit; Z92.3 Personal history of irradiation; I48.0 Paroxysmal atrial fibrillation; E11.9 Type 2 diabetes mellitus without complications; Z85.01 Personal history of malignant neoplasm of esophagus; Z79.890 Hormone replacement therapy; A41.51 Sepsis due to Escherichia coli [E. coli]; Z68.1 Body mass index [BMI] 19.9 or less, adult; Z79.899 Other long term (current) drug therapy; I25.10 Atherosclerotic heart disease of native coronary artery without angina pectoris; Z66 Do not resuscitate; E43 Unspecified severe protein-calorie malnutrition; E87.4 Mixed disorder of acid-base balance; G31.85 Corticobasal degeneration; J96.01 Acute respiratory failure with hypoxia; Z95.5 Presence of coronary angioplasty implant and graft; I50.33 Acute on chronic diastolic (congestive) heart failure; Z79.84 Long term (current) use of oral hypoglycemic drugs; Z85.028 Personal history of other malignant neoplasm of stomach; N39.0 Urinary tract infection, site not specified; D64.9 Anemia, unspecified; R13.10 Dysphagia, unspecified; I25.2 Old myocardial infarction; Z92.21 Personal history of antineoplastic chemotherapy